=== PATIENT | female | born 1960 | race Caucasian/White ===

== ENCOUNTER → 2016-04-22 | Outpatient (CLI) | payer MEDICARE ==
[~2016-04-22] VITALS: Ht 160 cm; Wt 73.9 kg
[~2016-04-22] MED LIST: ABIL2TAB2 PO; ADDE20CA PO; AMBI10TA PO; AMOX500T PO; BACT800T5 PO; BIOT10005 PO; BUPR1TAB52 PO; CALC600T7 AD; CALCIUM AND VIT D PO; CALCTAB97 PO; CENTTAB36 PO; COLA50CA3 PO; FERR324T12 PO; KLON1TAB PO; NS 1,000 ML IV SCH; OMEP10CASR PO; PERCOCET PO; PROPOFOL 200 MG/20 ML VIAL As Ordered ONE; REST0.05 OU; SENO8.6T9 PO; TYLE650T30 PO; VIIB40TA PO; VITA100037 PO; VITA250L PO; XARE20TA PO; [UNRECOGNIZED DRUG - OTHER] AU; [UNRECOGNIZED DRUG - OTHER] PO; [UNRECOGNIZED DRUG - OTHER] PO; [UNRECOGNIZED DRUG - OTHER] PO
--- NOTE | 2016-04-22 11:11 | ROOR ---
Patient Name: Christy Vaz Procedure Date: 04/22/2016 10:55 AM Date of : 1960 Age: 55 Room: [facility] Gender: Female Note Status: Finalized Procedure: Colonoscopy Indications: Screening for colorectal malignant neoplasm Providers: Dave ZACARIAS MD Referring MD: CATRACHITO NUÑEZ Guanaco [facility] CATRACHITO Venegas Requesting Provider: Medicines: Monitored Anesthesia Care Complications: No immediate complications. Procedure: Pre-Anesthesia Assessment: - The heart rate, respiratory rate, oxygen saturations, blood pressure, adequacy of pulmonary ventilation, and response to care were monitored throughout the procedure. The Colonoscope was introduced through the anus and advanced to the cecum, identified by appendiceal orifice and ileocecal valve. The colonoscopy was performed without difficulty. The patient tolerated the procedure well. The quality of the bowel preparation was good. Findings: The perianal and digital rectal examinations were normal. (Exam: Complete, Prep: Good or Excellent.) A 4 mm polyp was found in the sigmoid colon. The polyp was sessile. The polyp was removed with a cold snare. Resection and retrieval were complete. Internal hemorrhoids were found during retroflexion. The hemorrhoids were small. The exam was otherwise without abnormality on direct and retroflexion views. Impression: - One 4 mm polyp in the sigmoid colon, removed with a cold snare. Resected and retrieved. - Internal hemorrhoids. - The examination was otherwise normal on direct and retroflexion views. Recommendation: - Telephone endoscopist for pathology results in 2 weeks. - If the pathology report reveals adenomatous tissue, then repeat the colonoscopy for surveillance in 5 years. - If the pathology report indicates hyperplastic polyp, then repeat colonoscopy for screening purposes in 10 years. - Resume Xarelto (rivaroxaban) at prior dose today. Dave Zacarias MD Dave ZACARISA MD 04/22/2016 11:10:40 AM This report has been signed electronically. Number of Addenda: 0 Note Initiated On: 04/22/2016 10:55 AM Estimated Blood Loss: Estimated blood loss: none.
[2016-04-22 11:30] VITALS: BP 110/77
== END | disposition home or self-care (01) ==
LOC: M OPP 09:38
PROVIDERS: ATTEND Internal Medicine Gastroenterology
DX: Z12.11 Encounter for screening for malignant neoplasm of colon (principal); D12.5 Benign neoplasm of sigmoid colon; K64.8 Other hemorrhoids; I99.9 Unspecified disorder of circulatory system; M19.90 Unspecified osteoarthritis, unspecified site; F41.9 Anxiety disorder, unspecified; F31.9 Bipolar disorder, unspecified; Z98.0 Intestinal bypass and anastomosis status; Z79.899 Other long term (current) drug therapy; Z79.01 Long term (current) use of anticoagulants

== ENCOUNTER → 2016-05-02 | Outpatient (CLI) | payer MEDICARE ==
[~2016-05-02] MED LIST changes: -NS 1,000 ML IV SCH; -PROPOFOL 200 MG/20 ML VIAL As Ordered ONE
[2016-05-02 13:44] LABS: ALKALINE PHOSPHATASE 113 U/L (45-117); ALT/SGPT 23 U/L (12-78); ANION GAP 9 MEQ/L (8-16); AST/SGOT 19 U/L (15-37); BILIRUBIN,TOTAL 0.3 MG/DL (0.2-1.0); BLOOD UREA NITROGEN 20 MG/DL (7-18); CALCIUM LEVEL 9.1 MG/DL (8.5-10.1); CARBON DIOXIDE LEVEL 28 MEQ/L (21-32); CHLORIDE LEVEL 105 MEQ/L (98-107); CREATININE FOR GFR 0.79 MG/DL (0.55-1.02); GLOMERULAR FILTRATION RATE > 60.0 (>51); GLUCOSE, FASTING 88 MG/DL (70-105); PHOSPHORUS LEVEL 3.9 MG/DL (2.5-4.9); POTASSIUM SERUM 4.8 MEQ/L (3.5-5.1); SODIUM LEVEL 142 MEQ/L (136-145)
[2016-05-02 13:45] LABS: ALBUMIN 3.4 GM/DL (3.2-5.2); FERRITIN 86 NG/ML (8-252); MAGNESIUM LEVEL 2.2 MG/DL (1.8-2.4); TOTAL PROTEIN 6.8 GM/DL (6.4-8.2)
[2016-05-02 13:52] LABS: BASO % 0.6 % (0.0-1.0); EOS # 0.2 K/mm3 (0.0-0.50); EOS % 3.2 % (0.0-3.0); LARGE UNSTAINED CELL # 0.1 K/mm3 (0.0-0.4); LYMPH # 2.6 K/mm3 (1.5-4.5); LYMPH % 39.2 % (24.0-44.0); MEAN CORPUSCULAR HEMOGLOBIN 30.5 pg (27.0-33.0); MEAN CORPUSCULAR HGB CONC 32.2 g/dl (32.0-36.5); MEAN CORPUSCULAR VOLUME 94.7 fl (80.0-96.0); MONO # 0.3 K/mm3 (0.0-0.8); MONO % 4.7 % (0.0-5.0); NEUTROPHILS # 3.2 K/mm3 (1.8-7.7); NEUTROPHILS % 50.3 % (36.0-66.0); PLATELET COUNT, AUTOMATED 251 k/mm3 (150-450); RED CELL DISTRIBUTION WIDTH 13.6 % (11.5-14.5); WHITE BLOOD COUNT 6.3 K/mm3 (4.0-10.0)
[2016-05-02 14:02] LABS: VITAMIN B12 LEVEL 1285 PG/ML (247-911)
== END ==
LOC: M WUC 11:27
PROVIDERS: ATTEND Surgery
DX: K91.2 Postsurgical malabsorption, not elsewhere classified (principal); E55.9 Vitamin D deficiency, unspecified; Z98.84 Bariatric surgery status

== ENCOUNTER → 2016-10-01 | Outpatient (CLI) | payer MEDICARE ==
[~2016-10-01] MED LIST changes: +ABIL1TAB13 PO; -ABIL2TAB2 PO; -ADDE20CA PO; +ADDE20CA3 PO; -BIOT10005 PO; +BIOT10008 PO; +BRIN1TAB2 PO; +KLON0.5T PO; +ROBA500T PO; -VITA100037 PO; +VITA100067 PO
--- NOTE | 2016-10-01 15:32 | REPMRS ---
Patient History The patient states she has not had a clinical breast exam in over a year. Patient is postmenopausal, has history of skin cancer at age 54, 55 and is nulliparous. Family history of breast cancer in maternal grandmother under age 50. Digital Woman Screen Mammo: October 01, 2016 - Exam #: [id number] Bilateral CC and MLO view(s) were taken. Technologist: Yanet Short, Technologist Prior study comparison: August 01, 2014, left breast digital mammo diagnostic unilateral, performed at [facility]. July 13, 2014, digital woman screen mammo performed at [facility]. FINDINGS: There are scattered fibroglandular densities. There has been no change in the appearance of the mammogram from the prior studies. There is a mild amount of residual fibroglandular tissue which is fairly symmetric. There is no interval development of dominant mass, architectural distortion, or clustered microcalcification suggestive of malignancy. ASSESSMENT: BI-RADS/ACR category 1 mammogram. Negative. Recommendation Routine screening mammogram in 1 year (for women over age 40). This mammogram was interpreted with the aid of an FDA-approved computer-aided dectection system. Electronically Signed By: Quincy Perez MD 10/01/16 [id number]
== END ==
LOC: M WHC 14:21
PROVIDERS: ATTEND Hospitalist
DX: Z12.31 Encounter for screening mammogram for malignant neoplasm of breast (principal); Z78.0 Asymptomatic menopausal state; Z92.89 Personal history of other medical treatment; Z80.3 Family history of malignant neoplasm of breast

== ENCOUNTER 2016-10-06 14:22 | Emergency (ER) | payer MEDICARE, MEDICAID ==
[~2016-10-06] VITALS: Ht 160 cm; Wt 67.3 kg
[~2016-10-06 14:22] MED LIST changes: -BRIN1TAB2 PO; -KLON0.5T PO; -ROBA500T PO
[2016-10-06 14:23] VITALS: BP 133/74
[2016-10-06] MEDS ORDERED: KLON0.5T PO (14:44)
[2016-10-06] MEDS ORDERED: ADDE20CA3 PO (14:44)
[2016-10-06] MEDS ORDERED: BRIN1TAB2 PO (14:44)
[2016-10-06] MEDS ORDERED: ACETAMINOPHEN TAB 650MG DOSE (2X325MG) PO ONE (16:45)
--- NOTE | 2016-10-06 17:06 | REP ---
CT Head without contrast HISTORY: Headache COMPARISON: 02/16/2010 Areas of decreased attenuation are present in the periventricular white matter. This represents small-vessel ischemic disease. There is no intraparenchymal hemorrhage, acute infarct, mass or midline shift. T the ventricular system and cortical sulci are dilated consistent with minimal volume loss. There is no extra cerebral collection. There is no fracture. The visualized sinuses are clear. IMPRESSION: 1. Small vessel ischemic disease. 2. Minimal volume loss. Signed by Loi Quinn MD 10/06/2016 04:57 P
--- NOTE | 2016-10-06 17:59 | REP ---
CT CERVICAL SPINE WITHOUT CONTRAST: HISTORY: Neck pain. COMPARISON: 02/16/2010. A congenital block vertebra is present at the C2-3 level. There is no acute fracture or subluxation. A disc bulge with associate osteophyte formation is present at the C5-6 level. A disc bulge is present at the C6-7 level. There is minimal narrowing of the spinal canal. Uncinate process and or facet hypertrophy are present at the C2-3 through C6-7 levels. These findings produce minimal narrowing of the neural foramina. The C5-6 and C6-7 intervertebral discs are decreased in height consistent with disc degeneration. 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 IMPRESSION: 1. There is no acute fracture or subluxation. 2. There is cervical spondylosis at the C2-3 through C6-7 levels. Signed by Loi Quinn MD 10/07/2016 08:08 A
== END 2016-10-06 17:39 | disposition home or self-care (01) ==
LOC: M ED 14:22
DX: S16.1XXA Strain of muscle, fascia and tendon at neck level, initial encounter (principal); R51 Headache; V49.40XA Driver injured in collision with unspecified motor vehicles in traffic accident, initial encounter; Y92.410 Unspecified street and highway as the place of occurrence of the external cause; Y93.89 Activity, other specified; Y99.9 Unspecified external cause status

== ENCOUNTER 2016-11-14 09:15 | Emergency (ER) | payer MEDICARE, MEDICAID ==
[~2016-11-14] VITALS: Ht 160 cm; Wt 65.0 kg
[~2016-11-14 09:15] MED LIST changes: +BRIN1TAB2 PO; +KLON0.5T PO
[2016-11-14] MEDS ORDERED: NORCO, ANEXSIA 5/325MG TABLET (HYDROcodone/ACETAMINOPHEN) PO ONE (11:00)
[2016-11-14] MEDS ORDERED: ONDANSETRON 4 MG ORAL DISINTEGRATING TAB (S0181) PO ONE (11:00)
--- NOTE | 2016-11-14 11:46 | REP ---
Right lower extremity Duplex Doppler venous ultrasound: Real time compression and duplex Doppler interrogation of the right lower extremity deep venous system is performed. The right common femoral, superficial femoral and popliteal veins are fully compressible with transducer pressure and demonstrate normal spontaneous and phasic flow, without evidence of deep venous thrombosis. Impression: No evidence of deep venous thrombosis of the right lower extremity femoral popliteal venous system. Signed by Quincy Perez MD 11/14/2016 11:38 A
[2016-11-14 12:20] LABS: BASO % 0.3 % (0.0-1.0); EOS # 0.1 10^3/uL (0.0-0.50); EOS % 1.2 % (0.0-3.0); IMMATURE GRANULOCYTE % 0.3 % (0-0); LYMPH # 2.6 10^3/uL (1.5-4.5); LYMPH % 40.3 % (24.0-44.0); MEAN CORPUSCULAR HEMOGLOBIN 30.9 pg (27.0-33.0); MEAN CORPUSCULAR HGB CONC 33.3 g/dl (32.0-36.5); MEAN CORPUSCULAR VOLUME 92.9 fl (80.0-96.0); MONO # 0.3 10^3/uL (0.0-0.8); MONO % 4.3 % (0.0-5.0); NEUTROPHILS # 3.5 10^3/uL (1.8-7.7); NEUTROPHILS % 53.6 % (36.0-66.0); PLATELET COUNT, AUTOMATED 248 10^3/uL (150-450); RED CELL DISTRIBUTION WIDTH 13.5 % (11.5-14.5); WHITE BLOOD COUNT 6.5 10^3/uL (4.0-10.0)
[2016-11-14 12:30] LABS: INR 1.37
[2016-11-14 12:49] LABS: ALBUMIN 3.2 GM/DL (3.2-5.2); ALBUMIN/GLOBULIN RATIO 0.94 (1.00-1.93); ALKALINE PHOSPHATASE 96 U/L (45-117); ALT/SGPT 27 U/L (12-78); ANION GAP 4 MEQ/L (8-16); AST/SGOT 16 U/L (15-37); BILIRUBIN,DIRECT 0.1 MG/DL (0.0-0.2); BILIRUBIN,TOTAL 0.3 MG/DL (0.2-1.0); BLOOD UREA NITROGEN 11 MG/DL (7-18); CALCIUM LEVEL 8.6 MG/DL (8.5-10.1); CARBON DIOXIDE LEVEL 29 MEQ/L (21-32); CHLORIDE LEVEL 107 MEQ/L (98-107); CREATININE FOR GFR 0.64 MG/DL (0.55-1.02); GLOMERULAR FILTRATION RATE > 60.0 (>51); GLUCOSE, FASTING 91 MG/DL (70-105); SODIUM LEVEL 140 MEQ/L (136-145); TOTAL PROTEIN 6.6 GM/DL (6.4-8.2)
[2016-11-14] MEDS ORDERED: ROBA500T PO (13:24)
[2016-11-14 13:45] VITALS: BP 132/78
--- NOTE | 2016-11-14 16:51 | REP ---
HISTORY: Hip pain. AP PELVIS: FINDINGS: The bilateral hip joint spaces are symmetric and relatively well maintained. There is no acute or destructive osseous lesion. A single AP view of the pelvis was performed. The hip joint spaces are symmetric and relatively well maintained. There is no acute fracture or destructive osseous lesion. Signed by Jai Boyer DO 11/14/2016 05:12 P
== END 2016-11-14 13:52 | disposition home or self-care (01) ==
LOC: EDBD 09:15 → M ED 09:15
DX: S76.011A Strain of muscle, fascia and tendon of right hip, initial encounter (principal); Z79.01 Long term (current) use of anticoagulants; Z79.899 Other long term (current) drug therapy; M79.89 Other specified soft tissue disorders; Z86.718 Personal history of other venous thrombosis and embolism; X58.XXXA Exposure to other specified factors, initial encounter; Y92.89 Other specified places as the place of occurrence of the external cause; Y93.89 Activity, other specified; Y99.9 Unspecified external cause status

== ENCOUNTER 2016-12-23 14:05 | Outpatient (RCR) | payer MEDICARE, MEDICAID ==
[~2016-12-23 14:05] MED LIST changes: +ROBA500T PO
== END 2017-01-15 ==
LOC: M PT 14:05
PROVIDERS: ATTEND Neuromusculoskeletal Medicine & OMM
DX: Z51.89 Encounter for other specified aftercare (principal); S76 Injury of muscle, fascia and tendon at hip and thigh level

== ENCOUNTER 2017-02-03 13:38 | Outpatient (RCR) | payer MEDICARE, MEDICAID | END 2017-02-15 | LOC: M PT 13:38 | DX: S76.911D Strain of unspecified muscles, fascia and tendons at thigh level, right thigh, subsequent encounter (principal); T14.8XXD Other injury of unspecified body region, subsequent encounter | CPT/HCPCS: 97110 ==

== ENCOUNTER 2017-02-23 15:27 | Outpatient (RCR) | payer MEDICARE, MEDICAID | END 2017-03-18 | disposition home or self-care (01) | LOC: M PT 15:27 | DX: Z51.89 Encounter for other specified aftercare (principal); S76.911D Strain of unspecified muscles, fascia and tendons at thigh level, right thigh, subsequent encounter; T14.8XXD Other injury of unspecified body region, subsequent encounter | CPT/HCPCS: 97110 ==

== ENCOUNTER 2017-04-28 20:00 | Emergency (ER) | payer MEDICARE, MEDICAID ==
[2017-04-28] MEDS: ACETAMINOPHEN 325 MG TAB PO (20:45)
[2017-04-28] MEDS: methylPREDNISolone INJ 125 MG/2 ML VIAL (J2930) IM (21:00)
== END 2017-04-28 22:09 | disposition home or self-care (01) ==
LOC: M ED 20:00
DX: J40 Bronchitis, not specified as acute or chronic (principal); F31.9 Bipolar disorder, unspecified; Z86.718 Personal history of other venous thrombosis and embolism; Z79.899 Other long term (current) drug therapy; Z79.01 Long term (current) use of anticoagulants
CPT/HCPCS: J2930

== ENCOUNTER → 2017-05-05 | Outpatient (CLI) | payer MEDICARE, MEDICAID ==
[2017-05-05 11:21] LABS: BASO % 0.2 % (0.0-1.0); EOS # 0.1 10^3/uL (0.0-0.50); EOS % 1.4 % (0.0-3.0); HEMATOCRIT 41.7 % (36.0-47.0); IMMATURE GRANULOCYTE % 0.4 % (0-3.0); LYMPH # 3.1 10^3/uL (1.5-4.5); LYMPH % 60.7 % (24.0-44.0); MEAN CORPUSCULAR HEMOGLOBIN 30.6 pg (27.0-33.0); MEAN CORPUSCULAR HGB CONC 33.6 g/dl (32.0-36.5); MEAN CORPUSCULAR VOLUME 91.2 fl (80.0-96.0); MONO # 0.3 10^3/uL (0.0-0.8); MONO % 6.7 % (0.0-5.0); NEUTROPHILS # 1.6 10^3/uL (1.8-7.7); NEUTROPHILS % 30.6 % (36.0-66.0); PLATELET COUNT, AUTOMATED 274 10^3/uL (150-450); RED BLOOD COUNT 4.57 10^6/uL (4.00-5.40); RED CELL DISTRIBUTION WIDTH 12.4 % (11.5-14.5); WHITE BLOOD COUNT 5.1 10^3/uL (4.0-10.0)
[2017-05-05 11:51] LABS: ESTIMATED AVERAGE GLUCOSE 103 MG/DL (60-110); HEMOGLOBIN A1c 5.2 %
[2017-05-05 11:59] LABS: TOTAL 25(OH) VITAMIN D 45.9 NG/ML (30.0-100.0)
[2017-05-05 12:00] LABS: VITAMIN B12 LEVEL > 2000 PG/ML (247-911)
[2017-05-05 12:02] LABS: ALBUMIN 3.2 GM/DL (3.2-5.2); ALBUMIN/GLOBULIN RATIO 0.91 (1.00-1.93); ALKALINE PHOSPHATASE 90 U/L (45-117); ALT/SGPT 27 U/L (12-78); ANION GAP 6 MEQ/L (8-16); AST/SGOT 17 U/L (7-37); BILIRUBIN,TOTAL 0.4 MG/DL (0.2-1.0); BLOOD UREA NITROGEN 14 MG/DL (7-18); CALCIUM LEVEL 8.4 MG/DL (8.5-10.1); CARBON DIOXIDE LEVEL 28 MEQ/L (21-32); CHLORIDE LEVEL 105 MEQ/L (98-107); FERRITIN 211 NG/ML (8-252); GLOMERULAR FILTRATION RATE > 60.0 (>51); GLUCOSE, FASTING 108 MG/DL (70-100); IRON (FE) 126 UG/DL (50-170); MAGNESIUM LEVEL 2.6 MG/DL (1.8-2.4); PHOSPHORUS LEVEL 2.9 MG/DL (2.5-4.9); SODIUM LEVEL 139 MEQ/L (136-145); TOTAL IRON BINDING CAPACITY 307 UG/DL (250-450); TOTAL PROTEIN 6.7 GM/DL (6.4-8.2)
[2017-05-05 14:25] LABS: PRETREATED FOLATE FOR RBCFOL 14.8 NG/ML; RBC FOLATE 14.8 NG/ML (280-791)
[2017-05-07 22:00] LABS: HEMATOCRIT 41.7 % (36.0-47.0)
== END ==
LOC: M LAB 10:51
DX: K91.2 Postsurgical malabsorption, not elsewhere classified (principal); J10.1 Influenza due to other identified influenza virus with other respiratory manifestations; Z98.84 Bariatric surgery status; E55.9 Vitamin D deficiency, unspecified
CPT/HCPCS: 83550

== ENCOUNTER → 2017-05-05 | Outpatient (CLI) | payer MEDICARE, MEDICAID ==
[2017-05-05 11:21] LABS: BASO % 0.2 % (0.0-1.0); EOS # 0.1 10^3/uL (0.0-0.50); EOS % 1.6 % (0.0-3.0); HEMATOCRIT 40.8 % (36.0-47.0); HEMOGLOBIN 13.7 g/dl (12.0-16.0); IMMATURE GRANULOCYTE % 0.2 % (0-3.0); LYMPH # 3.1 10^3/uL (1.5-4.5); LYMPH % 61.9 % (24.0-44.0); MEAN CORPUSCULAR HEMOGLOBIN 30.9 pg (27.0-33.0); MEAN CORPUSCULAR HGB CONC 33.6 g/dl (32.0-36.5); MEAN CORPUSCULAR VOLUME 92.1 fl (80.0-96.0); MONO # 0.3 10^3/uL (0.0-0.8); MONO % 6.3 % (0.0-5.0); NEUTROPHILS # 1.5 10^3/uL (1.8-7.7); NEUTROPHILS % 29.8 % (36.0-66.0); PLATELET COUNT, AUTOMATED 257 10^3/uL (150-450); RED BLOOD COUNT 4.43 10^6/uL (4.00-5.40); RED CELL DISTRIBUTION WIDTH 12.5 % (11.5-14.5); WHITE BLOOD COUNT 5.1 10^3/uL (4.0-10.0)
== END ==
LOC: M LAB 10:44
DX: J10.1 Influenza due to other identified influenza virus with other respiratory manifestations (principal)

== ENCOUNTER → 2017-05-08 | Outpatient (CLI) | payer MEDICARE, MEDICAID ==
[~2017-05-08] MED LIST changes: -ABIL1TAB13 PO; -ADDE20CA3 PO; -AMBI10TA PO; -AMOX500T PO; -BACT800T5 PO; -BIOT10008 PO; -BRIN1TAB2 PO; -BUPR1TAB52 PO; -CALC600T7 AD; -CALCIUM AND VIT D PO; -CALCTAB97 PO; -CENTTAB36 PO; -COLA50CA3 PO; -FERR324T12 PO; +ISOVUE-370 76% 100ML VIAL (Q9967) As Ordered; -KLON0.5T PO; -KLON1TAB PO; -OMEP10CASR PO; -PERCOCET PO; -REST0.05 OU; -ROBA500T PO; -SENO8.6T9 PO; -TYLE650T30 PO; -VIIB40TA PO; -VITA100067 PO; -VITA250L PO; -XARE20TA PO; -[UNRECOGNIZED DRUG - OTHER] AU; -[UNRECOGNIZED DRUG - OTHER] PO; -[UNRECOGNIZED DRUG - OTHER] PO; -[UNRECOGNIZED DRUG - OTHER] PO
== END ==
LOC: M RAD 08:19
DX: R93.8 Abnormal findings on diagnostic imaging of other specified body structures (principal); M25.78 Osteophyte, vertebrae (principal); M79.1 Myalgia
CPT/HCPCS: Q9967

== ENCOUNTER → 2017-09-25 | Outpatient (CLI) | payer MEDICARE, MEDICAID | LOC: M WHC 14:41 | DX: Z12.31 Encounter for screening mammogram for malignant neoplasm of breast (principal); R92.8 Other abnormal and inconclusive findings on diagnostic imaging of breast | CPT/HCPCS: 77067 ==

== ENCOUNTER → 2017-10-06 | Outpatient (CLI) | payer MEDICARE, MEDICAID | LOC: M RAD 11:44 | DX: N60.01 Solitary cyst of right breast (principal) | CPT/HCPCS: 77065 ==

== ENCOUNTER 2017-10-10 13:38 | Emergency (ER) | payer MEDICARE, MEDICAID | END 2017-10-10 15:26 | disposition home or self-care (01) | LOC: M ED 13:38 | DX: S06.0X0A Concussion without loss of consciousness, initial encounter (principal); W01.0XXA Fall on same level from slipping, tripping and stumbling without subsequent striking against object, initial encounter; Y92.096 Garden or yard of other non-institutional residence as the place of occurrence of the external cause; I67.82 Cerebral ischemia; M47.812 Spondylosis without myelopathy or radiculopathy, cervical region; F41.9 Anxiety disorder, unspecified; F31.9 Bipolar disorder, unspecified; Z86.718 Personal history of other venous thrombosis and embolism; Z79.01 Long term (current) use of anticoagulants | CPT/HCPCS: 70450 ==

== ENCOUNTER → 2017-10-15 | Outpatient (CLI) | payer MEDICARE, MEDICAID ==
[2017-10-15 16:26] LABS: BASO % 0.4 % (0.0-1.0); EOS # 0.1 10^3/uL (0.0-0.50); EOS % 1.2 % (0.0-3.0); HEMATOCRIT 38.7 % (36.0-47.0); HEMOGLOBIN 12.8 g/dl (12.0-15.5); IMMATURE GRANULOCYTE % 0.2 % (0-3.0); LYMPH # 2.8 10^3/uL (1.5-4.5); LYMPH % 31.4 % (24.0-44.0); MEAN CORPUSCULAR HGB CONC 33.1 g/dl (32.0-36.5); MEAN CORPUSCULAR VOLUME 93.7 fl (80.0-96.0); MONO # 0.7 10^3/uL (0.0-0.8); NEUTROPHILS # 5.3 10^3/uL (1.8-7.7); NEUTROPHILS % 58.8 % (36.0-66.0); PLATELET COUNT, AUTOMATED 273 10^3/uL (150-450); RED BLOOD COUNT 4.13 10^6/uL (4.00-5.40); RED CELL DISTRIBUTION WIDTH 13.5 % (11.5-14.5)
[2017-10-15 16:53] LABS: HEMATOCRIT 38.7 % (36.0-47.0)
[2017-10-15 16:58] LABS: ALBUMIN 3.6 GM/DL (3.2-5.2); ALBUMIN/GLOBULIN RATIO 1.06 (1.00-1.93); ALKALINE PHOSPHATASE 103 U/L (45-117); ALT/SGPT 24 U/L (12-78); ANION GAP 7 MEQ/L (8-16); AST/SGOT 26 U/L (7-37); BILIRUBIN,TOTAL 0.5 MG/DL (0.2-1.0); BLOOD UREA NITROGEN 18 MG/DL (7-18); CALCIUM LEVEL 8.8 MG/DL (8.5-10.1); CARBON DIOXIDE LEVEL 29 MEQ/L (21-32); CHLORIDE LEVEL 103 MEQ/L (98-107); CREATININE FOR GFR 0.78 MG/DL (0.55-1.30); FERRITIN 101 NG/ML (8-252); GLOMERULAR FILTRATION RATE > 60.0 (>51); GLUCOSE, FASTING 85 MG/DL (70-100); IRON (FE) 119 UG/DL (50-170); PERCENT SATURATION 31.6 % (13.2-45.0); POTASSIUM SERUM 4.7 MEQ/L (3.5-5.1); SODIUM LEVEL 139 MEQ/L (136-145); TOTAL IRON BINDING CAPACITY 376 UG/DL (250-450)
[2017-10-15 21:06] LABS: TOTAL 25(OH) VITAMIN D 54.3 NG/ML (30.0-100.0); VITAMIN B12 LEVEL > 2000 PG/ML (247-911)
[2017-10-16 12:33] LABS: PRETREATED FOLATE FOR RBCFOL 17.4 NG/ML; RBC FOLATE 944.2 NG/ML (280-791)
[2017-10-17 08:28] LABS: TRANSFERRIN 294 mg/dL (200-370)
== END ==
LOC: M WUC 12:43
DX: Z98.84 Bariatric surgery status (principal)
CPT/HCPCS: 82607

== ENCOUNTER → 2017-10-23 | Outpatient (CLI) | payer MEDICARE, MEDICAID | LOC: M RAD 09:41 | DX: I70.8 Atherosclerosis of other arteries (principal); R29.810 Facial weakness | CPT/HCPCS: 70450 ==

== ENCOUNTER 2018-03-25 13:33 | Emergency (ER) | payer MEDICARE, MEDICAID ==
[~2018-03-25] VITALS: Ht 160 cm; Wt 66.4 kg
[~2018-03-25 13:33] MED LIST changes: +ABIL1TAB13 PO; +ADDE20CA3 PO; +AMBI10TA PO; +AMOX500T PO; +BACT800T5 PO; +BIOT10008 PO; +BRIN10TA4 PO; +BUPR1TAB52 PO; +CALC600T7 AD; +CALCIUM AND VIT D PO; +CALCTAB97 PO; +CENTTAB36 PO; +COLA50CA3 PO; +FERR324T12 PO; -ISOVUE-370 76% 100ML VIAL (Q9967) As Ordered; +KLON0.5T PO; +KLON1TAB PO; +OMEP10CASR PO; +PERCOCET PO; +PRED20TA PO; +REST0.05 OU; +ROBA500T PO; +SENO8.6T9 PO; +TYLE650T30 PO; +VIIB40TA PO; +VITA100067 PO; +VITA250L PO; +XARE20TA PO; +[UNRECOGNIZED DRUG - OTHER] AU; +[UNRECOGNIZED DRUG - OTHER] PO; +[UNRECOGNIZED DRUG - OTHER] PO; +[UNRECOGNIZED DRUG - OTHER] PO
[2018-03-25] MEDS ORDERED: FLUO20CA19 (13:39)
[2018-03-25] MEDS ORDERED: ARIP1TAB6 (13:39)
[2018-03-25] MEDS ORDERED: QUET1TAB8 (13:39)
[2018-03-25] MEDS ORDERED: CLON1TAB8 (13:39)
[2018-03-25] MEDS ORDERED: ACETAMINOPHEN 325 MG TAB PO ONE (14:45)
--- NOTE | 2018-03-25 14:59 | REP ---
Duplex extremity venous ultrasound: Right lower extremity. History: History of DVT. Pain. Edmonds filter. A Findings: The deep veins are anechoic and fully compressible from the groin to the popliteal fossa in the right lower extremity. Color flow imaging is homogeneous. Spectral Doppler interrogation demonstrates intact respiratory variation in flow and normal manual augmentation of flow. There is no evidence of deep vein thrombosis. Impression: Negative right lower extremity duplex venous ultrasound. No evidence of deep vein thrombosis. Electronically Signed by Jefferson Velez MD 03/25/2018 02:50 P
[2018-03-25] MEDS ORDERED: TRAM50TA2 PO (15:33)
[2018-03-25 15:38] VITALS: BP 143/72
== END 2018-03-25 15:39 | disposition home or self-care (01) ==
LOC: M ED 13:33
DX: M79.661 Pain in right lower leg (principal); R51 Headache; Z86.718 Personal history of other venous thrombosis and embolism; Z79.899 Other long term (current) drug therapy

== ENCOUNTER → 2018-04-16 | Outpatient (CLI) | payer MEDICARE, MEDICAID ==
[~2018-04-16] MED LIST changes: +ARIP1TAB6; +CLON1TAB8; +FLUO20CA19; +QUET1TAB8; +TRAM50TA2 PO
--- NOTE | 2018-04-16 12:03 | REP ---
Clinical: Pain with mild trauma. Technique: AP, lateral, bilateral oblique and sunrise views of the right knee. Findings: Osseous structures, joint spaces, and surrounding soft tissues are normal for age. No acute fracture or dislocation. No effusion. No overt osteoarthritic degenerative changes. Impression: Age-appropriate right knee radiographs. No acute injury appreciated. Electronically Signed by Kana Mistry MD 04/16/2018 11:54 A
== END ==
LOC: M WUC 11:10
PROVIDERS: ATTEND Physician Assistant
DX: M25.561 Pain in right knee (principal)

== ENCOUNTER → 2018-08-27 | Outpatient (REF) | payer MEDICARE, MEDICAID ==
[~2018-08-27] MED LIST changes: +OXYC1TAB23 PO; -PERCOCET PO
[2018-08-27 17:22] LABS: BASO % 0.4 % (0.0-1.0); EOS # 0.1 10^3/uL (0.0-0.50); EOS % 0.9 % (0.0-3.0); HEMATOCRIT 39.1 % (36.0-47.0); HEMOGLOBIN 12.7 g/dl (12.0-15.5); LYMPH # 3.4 10^3/uL (1.5-4.5); LYMPH % 50.4 % (24.0-44.0); MEAN CORPUSCULAR HEMOGLOBIN 30.8 pg (27.0-33.0); MEAN CORPUSCULAR HGB CONC 32.5 g/dl (32.0-36.5); MEAN CORPUSCULAR VOLUME 94.9 fl (80.0-96.0); MONO # 0.5 10^3/uL (0.0-0.8); NEUTROPHILS # 2.7 10^3/uL (1.8-7.7); PLATELET COUNT, AUTOMATED 278 10^3/uL (150-450); RED BLOOD COUNT 4.12 10^6/uL (4.00-5.40); WHITE BLOOD COUNT 6.7 10^3/uL (4.0-10.0)
[2018-08-27 17:29] LABS: ALBUMIN 3.5 GM/DL (3.2-5.2); ALT/SGPT 21 U/L (12-78); BILIRUBIN,TOTAL 0.5 MG/DL (0.2-1.0); BLOOD UREA NITROGEN 17 MG/DL (7-18); CALCIUM LEVEL 8.9 MG/DL (8.5-10.1); CARBON DIOXIDE LEVEL 30 MEQ/L (21-32); CHLORIDE LEVEL 106 MEQ/L (98-107); CREATININE FOR GFR 0.73 MG/DL (0.55-1.30); GLOMERULAR FILTRATION RATE > 60.0 (>51); GLUCOSE, FASTING 93 MG/DL (70-100); POTASSIUM SERUM 4.2 MEQ/L (3.5-5.1); SODIUM LEVEL 139 MEQ/L (136-145); TOTAL PROTEIN 6.7 GM/DL (6.4-8.2)
== END ==
LOC: M SFHCPLAZ 14:52
DX: Z98.84 Bariatric surgery status (principal); L29.9 Pruritus, unspecified
CPT/HCPCS: 36415; 80053; 85025; G0463

== ENCOUNTER → 2018-09-10 | Outpatient (CLI) | payer MEDICARE, MEDICAID ==
--- NOTE | 2018-09-10 16:02 | REP ---
Left ankle four views: There is soft tissue edema laterally. There is no fracture or dislocation. Mineralization is normal. The mortise is symmetric. There is a calcaneal plantar spur. Impression: Soft tissue edema laterally. No fracture. Electronically Signed by Quincy Lund MD 09/10/2018 03:53 P
--- NOTE | 2018-09-10 16:03 | REP ---
Left foot four views: There is no fracture or dislocation. There is internal fixation of the great toe metatarsal and fifth digit metatarsal. Mineralization and joint spaces are otherwise unremarkable. There is a calcaneal plantar spur. Impression: No fracture or dislocation. Electronically Signed by Quincy Lund MD 09/10/2018 03:55 P
== END ==
LOC: M WUC 14:43
PROVIDERS: ATTEND Nurse Practitioner Family
DX: M25.572 Pain in left ankle and joints of left foot (principal)

== ENCOUNTER → 2018-11-03 | Outpatient (CLI) | payer MEDICARE, MEDICAID ==
--- NOTE | 2018-11-03 12:43 | REPMRS ---
Patient History The patient states she has not had a clinical breast exam in over a year. Family history of breast cancer under age 50 in maternal grandmother. 3D TOMOSYNTHESIS WAS PERFORMED. The Veda Longo lifetime risk for breast cancer is 15.0%. Digital Woman Screen Mammo: November 03, 2018 - Exam #: [id number] Bilateral CC and MLO view(s) were taken. Technologist: Yanet Short, Technologist Prior study comparison: October 06, 2017, right breast digital mammo diagnostic unilateral, performed at [facility]. September 25, 2017, bilateral digital woman screen mammo performed at [facility]. FINDINGS: The breast tissue is heterogeneously dense. This may lower the sensitivity of mammography. There has been no change in the appearance of the mammogram from the prior studies. There is a moderate amount of residual fibroglandular tissue which is fairly symmetric. There is no interval development of dominant mass, areas of architectural distortion, or clustered microcalcification typical of malignancy. Assessment: BI-RADS/ACR category 1 mammogram. Negative Mammogram. Recommendation Routine screening mammogram in 1 year (for women over age 40). This mammogram was interpreted with the aid of an FDA-approved computer-aided dectection system. Electronically Signed By: Quincy Perez MD 11/03/18 [id number]
== END ==
LOC: M WHC 08:54
PROVIDERS: ATTEND Hospitalist
DX: Z12.31 Encounter for screening mammogram for malignant neoplasm of breast (principal)

== ENCOUNTER → 2018-12-01 | Outpatient (REF) | payer MEDICARE | LOC: M SFHCPLAZ 17:14 | PROVIDERS: ATTEND Dermatology | DX: D23.4 Other benign neoplasm of skin of scalp and neck (principal) | CPT/HCPCS: 11106; 88304; G0463 ==

== ENCOUNTER → 2019-08-09 | Outpatient (REF) | payer MEDICARE, MEDICAID ==
[~2019-08-09] MED LIST changes: -FLUO20CA19; +FLUO20CA22; +QUET100T2; -QUET1TAB8
== END ==
LOC: M LAB REF 17:21
PROVIDERS: ATTEND Dermatology
DX: L57.0 Actinic keratosis (principal)
CPT/HCPCS: 11102; 11103; 17000; 88305; G0463

== ENCOUNTER 2019-09-25 11:55 | Emergency (ER) | payer OTHER, MEDICARE, MEDICAID ==
--- NOTE | 2019-10-28 17:01 | ECGEPIP ---
[facility] - ED Test Date: 2019-09-25 Pat Name: HANNAH SHAFER Department: Room: - Gender: Female Rehabilitation Therapy Aide: JOEL : 1960 Requested By: DIVYA THOMAS Order Number: [id number] Reading MD: Dennise Blackwell Measurements Intervals [place] Rate: 58 P: 10 NH: 140 QRS: 21 QRSD: 86 T: 31 QT: 380 QTc: 375 Interpretive Statements SINUS BRADYCARDIA BORDERLINE ECG SEE SCANNED DOWNTIME REPORT
[2019-11-10 08:56] LABS: INR 1.54; PARTIAL THROMBOPLASTIN TIME 30.9 SECONDS (24.2-38.5); PROTHROMBIN TIME 18.8 SECONDS (12.5-14.3)
[2019-11-10 18:37] LABS: BASO % 0.3 % (0.0-1.0); EOS % 0.4 % (0.0-3.0); HEMATOCRIT 50.3 % (36.0-47.0); HEMOGLOBIN 16.6 g/dl (12.0-15.5); LYMPH # 2.3 10^3/uL (1.5-5.0); LYMPH % 31.8 % (24.0-44.0); MEAN CORPUSCULAR HEMOGLOBIN 31.3 pg (27.0-33.0); MEAN CORPUSCULAR VOLUME 94.9 fl (80.0-96.0); MONO # 0.5 10^3/uL (0.0-0.8); MONO % 6.9 % (0.0-5.0); NEUTROPHILS # 4.3 10^3/uL (1.5-8.5); NEUTROPHILS % 60.3 % (36.0-66.0); PLATELET COUNT, AUTOMATED 286 10^3/uL (150-450); WHITE BLOOD COUNT 7.1 10^3/uL (4.0-10.0)
[2019-12-11 03:08] LABS: ALBUMIN 4.1 GM/DL (3.2-5.2); ALT/SGPT 31 U/L (12-78); BILIRUBIN,DIRECT 0.3 MG/DL (0.0-0.2); BILIRUBIN,TOTAL 0.5 MG/DL (0.2-1.0); BLOOD UREA NITROGEN 17 MG/DL (7-18); CALCIUM LEVEL 9.7 MG/DL (8.8-10.2); CARBON DIOXIDE LEVEL 30 MEQ/L (21-32); CHLORIDE LEVEL 103 MEQ/L (98-107); CK-MB VALUE MASS 4.2 NG/ML (<3.6); CPK CREATINE PHOSPHOKINASE 124 U/L (26-192); CREATININE FOR GFR 0.92 MG/DL (0.55-1.30); GLOMERULAR FILTRATION RATE > 60.0 (>45); GLUCOSE, FASTING 84 MG/DL (70-100); MAGNESIUM LEVEL 2.3 MG/DL (1.8-2.4); MB/CK RELATIVE INDEX 3.39 (< OR =4); POTASSIUM SERUM 4.2 MEQ/L (3.5-5.1); SODIUM LEVEL 138 MEQ/L (136-145); TOTAL PROTEIN 8.1 GM/DL (6.4-8.2); TROPONIN I < 0.02 NG/ML (< 0.10)
== END 2019-09-25 13:50 | disposition home or self-care (01) ==
LOC: M ED 11:55
DX: B34.9 Viral infection, unspecified (principal); M25.511 Pain in right shoulder; G89.29 Other chronic pain; F90.9 Attention-deficit hyperactivity disorder, unspecified type; F31.9 Bipolar disorder, unspecified; Z86.718 Personal history of other venous thrombosis and embolism; Z98.84 Bariatric surgery status; Z79.899 Other long term (current) drug therapy; Z79.01 Long term (current) use of anticoagulants

== ENCOUNTER → 2019-11-01 | Outpatient (CLI) | payer OTHER ==
[2019-11-01 17:53] LABS: HEMATOCRIT 40.6 % (36.0-47.0); HEMOGLOBIN 13.3 g/dl (12.0-15.5); MEAN CORPUSCULAR HGB CONC 32.8 g/dl (32.0-36.5); MEAN CORPUSCULAR VOLUME 97.6 fl (80.0-96.0); PLATELET COUNT, AUTOMATED 253 10^3/uL (150-450); RED BLOOD COUNT 4.16 10^6/uL (4.00-5.40); WHITE BLOOD COUNT 11.4 10^3/uL (4.0-10.0)
[2019-11-01 18:13] LABS: ALBUMIN 3.5 GM/DL (3.2-5.2); ALT/SGPT 61 U/L (12-78); BILIRUBIN,TOTAL 0.4 MG/DL (0.2-1.0); BLOOD UREA NITROGEN 19 MG/DL (7-18); CALCIUM LEVEL 9.1 MG/DL (8.8-10.2); CARBON DIOXIDE LEVEL 30 MEQ/L (21-32); CHLORIDE LEVEL 104 MEQ/L (98-107); CREATININE FOR GFR 0.79 MG/DL (0.55-1.30); GLOMERULAR FILTRATION RATE > 60.0 (>45); GLUCOSE, FASTING 95 MG/DL (70-100); POTASSIUM SERUM 4.7 MEQ/L (3.5-5.1); SODIUM LEVEL 137 MEQ/L (136-145); TOTAL PROTEIN 7.1 GM/DL (6.4-8.2)
== END ==
LOC: M PLALAB 14:44
PROVIDERS: ATTEND Family Medicine
DX: Z01.818 Encounter for other preprocedural examination (principal)

== ENCOUNTER → 2019-11-03 | Outpatient (CLI) | payer OTHER, MEDICARE, MEDICAID | LOC: M LABSMTC 10:05 | PROVIDERS: ATTEND Orthopaedic Surgery | DX: Z20.828 Contact with and (suspected) exposure to other viral communicable diseases (principal) ==

== ENCOUNTER → 2020-01-20 | Outpatient (REF) | payer MEDICARE, MEDICAID | LOC: M PLALAB 08:12 | PROVIDERS: ATTEND Nurse Practitioner Women's Health | DX: Z12.4 Encounter for screening for malignant neoplasm of cervix (principal); N95.8 Other specified menopausal and perimenopausal disorders; R87.810 Cervical high risk human papillomavirus (HPV) DNA test positive | CPT/HCPCS: 87624; G0123 ==

== ENCOUNTER → 2020-01-20 | Outpatient (CLI) | payer MEDICARE, MEDICAID ==
--- NOTE | 2020-01-20 13:07 | REPMRS ---
Patient History The patient states she had a clinical breast exam in 01/2020. Patient is postmenopausal, has history of skin cancer at age 54, and is nulliparous. Family history of breast cancer under age 50 in maternal grandmother. No Hormone Replacement Therapy Digital Woman Screen Mammo: January 20, 2020 - Exam #: [id number] Bilateral CC and MLO view(s) were taken. Technologist: Shy Pavon, Technologist Prior study comparison: November 03, 2018, bilateral digital woman screen mammo performed at [facility]. September 25, 2017, bilateral digital woman screen mammo performed at [facility]. October 01, 2016, digital woman screen mammo performed at [facility]. FINDINGS: There are scattered fibroglandular densities. The Volpara volumetric breast density category is:B. The previously noted right breast cyst is again seen unchanged. There has been no change in the appearance of the mammogram from the prior studies. There is a mild amount of scattered fibroglandular density which is fairly symmetric. There is no interval development of dominant mass, architectural distortion, or grouped microcalcification suggestive of malignancy. 3-D tomosynthesis shows no additional findings. Assessment: BI-RADS/ACR category 2 mammogram. Benign Findings. Recommendation Routine screening mammogram of both breasts in 1 year (for women over age 40). This patient's [facility] Lifetime Breast Cancer Risk is estimated at 14.6 %. This mammogram was interpreted with the aid of an FDA-approved computer-aided dectection system. Electronically Signed By: Shaheen Velez MD 01/20/20 [id number]
== END ==
LOC: M WHC 11:03
PROVIDERS: ATTEND Nurse Practitioner Women's Health
DX: Z12.31 Encounter for screening mammogram for malignant neoplasm of breast (principal); N60.01 Solitary cyst of right breast; Z85.828 Personal history of other malignant neoplasm of skin

== ENCOUNTER → 2020-01-23 | Outpatient (REF) | payer MEDICARE, MEDICAID | LOC: M SFHCPLAZ 17:03 | PROVIDERS: ATTEND Physician Assistant | DX: B35.1 Tinea unguium (principal) ==

== ENCOUNTER → 2020-01-23 | Outpatient (REF) | payer MEDICARE, MEDICAID | LOC: M LAB REF 19:03 | PROVIDERS: ATTEND Physician Assistant | DX: L72.9 Follicular cyst of the skin and subcutaneous tissue, unspecified (principal) | CPT/HCPCS: 11102; 87101; 88305; G0463 ==

== ENCOUNTER 2020-03-05 13:57 | Emergency (ER) | payer MEDICARE, MEDICAID ==
[~2020-03-05] VITALS: Ht 160 cm; Wt 71.8 kg
[2020-03-05] MEDS ORDERED: VRAY1.5C PO (14:14)
[2020-03-05] MEDS ORDERED: NORCO, ANEXSIA 5/325MG TABLET (HYDROcodone/ACETAMINOPHEN) PO ONE ×2 (14:45→18:00)
--- OUTSIDE RECORDS SUMMARY | 2020-03-05 15:18 | CCD | Continuity of Care Document ---
Author Author Christy WIN MSPT Organization Unknown Address [address] [place] [address], [address] [address] Phone [phone] Care Team Providers Care It Infrastructure Specialist Name Role Phone Cinda Renetta DREW AUTM [phone] Gurdeep Pritchard PA-C AUTM [phone] Problems Active Problems Provider Date Arthralgia of the ankle and/or foot Onse t: 12/07/1998 Adhesive capsulitis of shoulder Becka Veras, Onset: 0 06/06/2011 Social History Type Date Description Comments Sex Unknown ETOH Use Occasionally consumes alcohol Tobacco Use Start: Unknown Denies Smoking Smoking Status Reviewed: 05/06/19 Denies Smoking Allergies, Adverse Reactions, Alerts Description No Known Drug Allergies Medications Active Medications SIG Qnty Indications Ordering Provide r Date Tramadol HCL 50mg Tablets Take 1-2 Tablets By Mouth Every 8 Hours as Needed For Pain MDD 4, Surg Date 11/08/2019 20tabs Max Barba MD 12/21/2019 Hydrocodone-Acetaminophen 5-325mg Tablets 1-2 tabs p.o every 6 hours as needed post surgical pain 30tabs DMaida Barba MD 11/07/2019 Xarelto 20mg Tablets every da y Unknown Abilify 2mg Tablets 1 by mouth every day Unknown Adderall 20mg Tablets Unknown Furosemide 20mg Tablets 1 by mouth every day Unknown Ambien 10mg Tablets i @hs as needed sleep Unknown Vitamin B-12 500mcg Tablets Sub 1 by mouth every day Unknown Calcium Citrate + Tablets Unknown Clonazepam 1mg Tablets 1 tab by mouth at bedtime as needed for anxiety Unknown Biotin 49485bot Tablets 1 by mouth every day Unknown Hydroxyzine HCL 25mg Tablets 1 tab by mouth 1-2 times a day as needed for anxiety Unkn own Centrum Silver Adult 50+ Adult 50 Tablets 1 by mouth every day S83.91xA Unknown Magnesium 500mg Capsules Unknown Folic Acid 800mcg Tablets 1 by mouth every day Unknown Vitamin D3 1000Unit Capsules 1 by mouth every day Unknown Immunizations Description No Information Available Vital Signs Date Vital Result Comment 02/14/2020 1:09pm Body Temperature 96.4 F 05/06/2019 2:53pm Body Temperature 97.5 F Height 63 inches 5'3" Weight 152.00 lb BMI (Body Mass Index) 26.9 kg/m2 Results Test Acquired Date Facility Test Result H/L Range Note Laboratory test finding 11/03/2019 [facility] [address] [place] [address] (315)- - Coronavirus 2019 Nasopharygeal This nucleic aci <SEE NOTE> 1 1 This nucleic acid amplificat ion test was developed and its performance characteristics determined by [facility]. Nucleic acid amplification tests include PCR and TMA. This test has not been FDA cleared or approved. This test has been authorized by FDA under an Emergency Use Authorization (EUA). This test is only authorized for the duration of time the declaration that circumstances exist justifying the authorization of the emergency use of in vitro diagnostic tests for detection of SARS-CoV-2 virus and/or diagnosis of COVID-19 infection under section 564(b)(1) of the Act, 21 U.S.C. 360bbb-3 (b) (1), unless the authorization is terminated or revoked sooner. When diagnostic testing is negative, the possibility of a false negative result should be considered in the context of a patient's recent exposures and the presence of clinical signs and symptoms consistent with COVID-19. An individual without symptoms of COVID-19 and who is not shedding SARS-CoV-2 virus would expect to have a negative (not detected) result in this assay. Performed at: RN - [facility] [address] [id number] Procedure Writer: Val Parmar MD, Phone: [phone] Not Detected Procedures Date Code Description Status 02/24/2020 62158 Electrical Stimulati on Manual, Each 15 Min, Constant Attendance Completed 02/24/2020 01957 Hot Or Cold Packs Completed 02/20/2020 26212 Therapeutic Procedure, Each 15 M inutes Completed 02/20/2020 75141 Therapeutic Procedure, Each 15 M inutes Completed 02/20/2020 61773 Electrical Stimulati on Manual, Each 15 Min, Constant Attendance Completed 02/20/2020 36467 Hot Or Cold Packs Completed 02/06/2020 87945 Therapeutic Procedure, Each 15 M inutes Completed 02/06/2020 75288 Therapeutic Procedure, Each 15 M inutes Completed 02/06/2020 79798 Electrical Stimulati on Manual, Each 15 Min, Constant Attendance Completed 02/06/2020 49895 Hot Or Cold Packs Completed 02/02/2020 45805 Therapeutic Procedure, Each 15 M inutes Completed 02/02/2020 96791 Therapeutic Procedure, Each 15 M inutes Completed 02/02/2020 75204 Electrical Stimulati on Manual, Each 15 Min, Constant Attendance Completed 02/02/2020 91823 Hot Or Cold Packs Completed 01/30/2020 29185 Hot Or Cold Packs Completed 01/30/2020 05256 Electrical Stimulati on Manual, Each 15 Min, Constant Attendance Completed 01/30/2020 63653 Therapeutic Procedure, Each 15 M inutes Completed 01/30/2020 61147 Therapeutic Procedure, Each 15 M inutes Completed 01/30/2020 02761 Therapeutic Procedure, Each 15 M inutes Completed 01/26/2020 04011 Therapeutic Procedure, Each 15 M inutes Completed 01/26/2020 51212 Therapeutic Procedure, Each 15 M inutes Completed 01/26/2020 92115 Electrical Stimulati on Manual, Each 15 Min, Constant Attendance Completed 01/26/2020 96043 Hot Or Cold Packs Completed 01/23/2020 23215 Hot Or Cold Packs Completed 01/23/2020 91945 Electrical Stimulati on Manual, Each 15 Min, Constant Attendance Completed 01/23/2020 94081 Therapeutic Procedure, Each 15 M inutes Completed 01/23/2020 65086 Therapeutic Procedure, Each 15 M inutes Completed 01/02/2020 64881 Manual Therapy Each 15 Minutes C ompleted 01/02/2020 76375 Therapeutic Procedure, Each 15 M inutes Completed 01/02/2020 52682 Electrical Stimulati on Manual, Each 15 Min, Constant Attendance Completed 01/02/2020 89471 Hot Or Cold Packs Completed 12/30/2019 61810 Hot Or Cold Packs Completed 12/30/2019 15837 Electrical Stimulati on Manual, Each 15 Min, Constant Attendance Completed 12/30/2019 85471 Therapeutic Procedure, Each 15 M inutes Completed 12/30/2019 40904 Manual Therapy Each 15 Minutes C ompleted 12/26/2019 84533 Manual Therapy Each 15 Minutes C ompleted 12/26/2019 73805 Therapeutic Procedure, Each 15 M inutes Completed 12/26/2019 34145 Electrical Stimulati on Manual, Each 15 Min, Constant Attendance Completed 12/26/2019 90005 Hot Or Cold Packs Completed 12/23/2019 51784 Hot Or Cold Packs Completed 12/23/2019 16523 Electrical Stimulati on Manual, Each 15 Min, Constant Attendance Completed 12/23/2019 77661 Therapeutic Procedure, Each 15 M inutes Completed 12/23/2019 97495 Manual Therapy Each 15 Minutes C ompleted 12/20/2019 42466 Therapeutic Procedure, Each 15 M inutes Completed 12/20/2019 24909 Electrical Stimulati on Manual, Each 15 Min, Constant Attendance Completed 12/20/2019 02070 Hot Or Cold Packs Completed 12/16/2019 04213 Therapeutic Procedure, Each 15 M inutes Completed 12/16/2019 39564 Electrical Stimulati on Manual, Each 15 Min, Constant Attendance Completed 12/16/2019 70164 Hot Or Cold Packs Completed 12/13/2019 63553 Hot Or Cold Packs Completed 12/13/2019 04442 Electrical Stimulati on Manual, Each 15 Min, Constant Attendance Completed 12/13/2019 70248 Therapeutic Procedure, Each 15 M inutes Completed 12/08/2019 12542 Therapeutic Procedure, Each 15 M inutes Completed 12/08/2019 55346 Therapeutic Procedure, Each 15 M inutes Completed 12/08/2019 77965 Electrical Stimulati on Manual, Each 15 Min, Constant Attendance Completed 12/08/2019 59538 Hot Or Cold Packs Completed 12/06/2019 86399 Hot Or Cold Packs Completed 12/06/2019 72181 Electrical Stimulati on Manual, Each 15 Min, Constant Attendance Completed 12/06/2019 94034 Therapeutic Procedure, Each 15 M inutes Completed 12/06/2019 52655 Therapeutic Procedure, Each 15 M inutes Completed 12/01/2019 00085 Therapeutic Procedure, Each 15 M inutes Completed 12/01/2019 73467 Hot Or Cold Packs Completed 11/29/2019 82516 Therapeutic Procedure, Each 15 M inutes Completed 11/29/2019 44258 Hot Or Cold Packs Completed 11/24/2019 05280 Physical Therapy Eval - Low Comp lexity Completed 11/08/2019 17394 Arthroscopy Shoulder Surgical Wi th Rotator Cuff Repair Completed 11/08/2019 21938 Arthroscopy Shoulder Remove Loose/Foreign Body Dist Claviculectom Completed 09/20/201936440 Inject/Drain Joint/Bursa Major C ompleted Medical Devices Description No Information Available Encounters Type Date Location Provider Dx Diagnosis Office Visit 02/14/2020 11:30a Penny Barba MD S4 6.011D Strain of musc/tend the rotator cuff of right shoulder, subs Office Visit 01/05/2020 1:00p Penny Barba MD S4 6.011D Strain of musc/tend the rotator cuff of right shoulder, subs Office Visit 11/16/2019 10:00a Penny Barba MD S4 6.011D Strain of musc/tend the rotator cuff of right shoulder, subs Office Visit 09/20/2019 11:15a [facility] Mindy Rosas PA-C S46.011 D Strain of musc/tend the rotator cuff of right shoulder, subs Assessments Date Code Description Provider 02/20/2020 S46.011D Strain of muscle(s) and tendon(s) of the rotator cuff of right shoulder, subsequent encounter Isamar Win, MSPT 02/14/2020 S46.011D Strain of muscle(s) and tendon(s) of the rotator cuff of right shoulder, subsequent encounter Max Barba MD 02/06/2020 S46.011D Strain of muscle(s) and tendon(s) of the rotator cuff of right shoulder, subsequent encounter Leeroy Gaytan, PT, DPT 02/02/2020 S46.011D Strain of muscle(s) and tendon(s) of the rotator cuff of right shoulder, subsequent encounter Isamar M. Vespa, [facility] 01/30/2020 S46.011D Strain of muscle(s) and tendon(s) of the rotator cuff of right shoulder, subsequent encounter Isamar M. Vespa, [facility] 01/26/2020 S46.011D Strain of muscle(s) and tendon(s) of the rotator cuff of right shoulder, subsequent encounter Isamar M. Vespa, [facility] 01/23/2020 S46.011D Strain of muscle(s) and tendon(s) of the rotator cuff of right shoulder, subsequent encounter Isamar M. Vespa, [facility] 01/05/2020 S46.011D Strain of muscle(s) and tendon(s) of the rotator cuff of right shoulder, subsequent encounter Max Barba MD 01/02/2020 S46.011D Strain of muscle(s) and tendon(s) of the rotator cuff of right shoulder, subsequent encounter Isamar M. Vespa, [facility] 12/30/2019 S46.011D Strain of muscle(s) and tendon(s) of the rotator cuff of right shoulder, subsequent encounter Isamar M. Vespa, [facility] 12/26/2019 S46.011D Strain of muscle(s) and tendon(s) of the rotator cuff of right shoulder, subsequent encounter Isamar M. Vespa, [facility] 12/23/2019 S46.011D Strain of muscle(s) and tendon(s) of the rotator cuff of right shoulder, subsequent encounter Isamar M. Vespa, [facility] 12/20/2019 S46.011D Strain of muscle(s) and tendon(s) of the rotator cuff of right shoulder, subsequent encounter Isamar M. Vespa, [facility] 12/16/2019 S46.011D Strain of muscle(s) and tendon(s) of the rotator cuff of right shoulder, subsequent encounter Isamar M. Vespa, [facility] 12/13/2019 S46.011D Strain of muscle(s) and tendon(s) of the rotator cuff of right shoulder, subsequent encounter Isamar M. Vespa, [facility] 12/08/2019 S46.011D Strain of muscle(s) and tendon(s) of the rotator cuff of right shoulder, subsequent encounter Isamar Win, MSPT 12/06/2019 S46.011D Strain of muscle(s) and tendon(s) of the rotator cuff of right shoulder, subsequent encounter Isamar CardonaMaida [place], MSPT 12/01/2019 S46.011D Strain of muscle(s) and tendon(s) of the rotator cuff of right shoulder, subsequent encounter Isamar Win, MSPT 11/29/2019 S46.011D Strain of muscle(s) and tendon(s) of the rotator cuff of right shoulder, subsequent encounter Isamar Win, MSPT 11/24/2019 S46.011D Strain of muscle(s) and tendon(s) of the rotator cuff of right shoulder, subsequent encounter Leeroy Gaytan, PT, DPT 11/16/2019 S46.011D Strain of muscle(s) and tendon(s) of the rotator cuff of right shoulder, subsequent encounter Max Barba MD 11/08/2019 S46.011A Strain of muscle(s) and tendon(s) of the rotator cuff of right shoulder, initial encounter Max Barba MD 11/08/2019 M19.011 Primary osteoarthritis, right sh oulder Max Barba MD 11/08/2019 X50.9xxA Other and unspecifie d overexertion or strenuous movements or postures, initial encounter Max Barba MD 11/08/[address] or not applica ble Max Barba MD 10/27/2019 S46.011A Strain of muscle(s) and tendon(s) of the rotator cuff of right shoulder, initial encounter Max Barba MD 09/20/2019 S46.011D Strain of muscle(s) and tendon(s) of the rotator cuff of right shoulder, subsequent encounter Mindy Rosas PA-C Plan of Treatment Future Appointment(s):* 02/29/2020 10:30 am - [place] [facility] at Physical Therapy * 02/27/2020 10:00 am - [place] Conde[facility] at Physical Therapy * 03/16/2020 10:45 am - Max Barba MD at [facility] Functional Status Description No Information Available Mental Status Description No Information Available Referrals Refer to Reason for Referral Status Appt Date Wei Barba MD PT- RT SHOULDER WRITTEN AUTH PASSED TO PT DEPT. Created [address] [place] [address] [phone] Wei Barba MD PT- RT SHOULDER OK TO [facility] 3 MONTHS AFTER SURGERY. PASSED TO PT DEPT. Created [address] [place] [address] [phone]
--- OUTSIDE RECORDS SUMMARY | 2020-03-05 15:18 | CCD | Continuity of Care Document ---
Author Author Christy WIN MSPT Organization Unknown Address [address] [place] [address], [address] [address] Phone [phone] Care Team Providers Care Manager Operations And Procurement Name Role Phone Cinda Renetta DREW AUTM [phone] Gurdeep Pritcahrd PA-C AUTM [phone] Problems Active Problems Provider Date Arthralgia of [...] bedtime as needed for anxiety Unknown Biotin 09946nez Tablets 1 by mouth every day Unknown [...] H/L Range Note Laboratory test finding 11/03/2019 [facility] [address] [place] [address] (315)- - Coronavirus 2019 Nasopharygeal This nucleic aci <SEE NOTE> 1 1 This nucleic acid amplificat ion test was developed and its performance characteristics determined by [facility]. Nucleic acid amplification tests include PCR and [...] this assay. Performed at: RN - [facility] [address] [id number] Plant Operations Manager: Val Parmar MD, Phone: [phone] Not Detected Procedures Date Code Description Status 02/20/2020 81182 Therapeutic Procedure, Each 15 M inutes Completed 02/20/2020 97405 Therapeutic Procedure, Each 15 M inutes Completed 02/20/2020 36962 Electrical Stimulati on Manual, Each 15 Min, Constant Attendance Completed 02/20/2020 11179 Hot Or Cold Packs Completed 02/06/2020 02736 Therapeutic Procedure, Each 15 M inutes Completed 02/06/2020 34469 Therapeutic Procedure, Each 15 M inutes Completed 02/06/2020 75009 Electrical Stimulati on Manual, Each 15 Min, Constant Attendance Completed 02/06/2020 91497 Hot Or Cold Packs Completed 02/02/2020 97816 Hot Or Cold Packs Completed 02/02/2020 83165 Electrical Stimulati on Manual, Each 15 Min, Constant Attendance Completed 02/02/2020 29706 Therapeutic Procedure, Each 15 M inutes Completed 02/02/2020 67390 Therapeutic Procedure, Each 15 M inutes Completed 01/30/2020 67097 Therapeutic Procedure, Each 15 M inutes Completed 01/30/2020 65781 Therapeutic Procedure, Each 15 M inutes Completed 01/30/2020 93433 Therapeutic Procedure, Each 15 M inutes Completed 01/30/2020 41626 Electrical Stimulati on Manual, Each 15 Min, Constant Attendance Completed 01/30/2020 97861 Hot Or Cold Packs Completed 01/26/2020 96579 Hot Or Cold Packs Completed 01/26/2020 48628 Electrical Stimulati on Manual, Each 15 Min, Constant Attendance Completed 01/26/2020 86666 Therapeutic Procedure, Each 15 M inutes Completed 01/26/2020 81805 Therapeutic Procedure, Each 15 M inutes Completed 01/23/2020 99440 Therapeutic Procedure, Each 15 M inutes Completed 01/23/2020 49024 Therapeutic Procedure, Each 15 M inutes Completed 01/23/2020 93589 Electrical Stimulati on Manual, Each 15 Min, Constant Attendance Completed 01/23/2020 70555 Hot Or Cold Packs Completed 01/02/2020 71064 Manual Therapy Each 15 Minutes C ompleted 01/02/2020 81125 Therapeutic Procedure, Each 15 M inutes Completed 01/02/2020 84237 Electrical Stimulati on Manual, Each 15 Min, Constant Attendance Completed 01/02/2020 22664 Hot Or Cold Packs Completed 12/30/2019 90325 Manual Therapy Each 15 Minutes C ompleted 12/30/2019 61374 Therapeutic Procedure, Each 15 M inutes Completed 12/30/2019 55968 Electrical Stimulati on Manual, Each 15 Min, Constant Attendance Completed 12/30/2019 30963 Hot Or Cold Packs Completed 12/26/2019 66913 Hot Or Cold Packs Completed 12/26/2019 40588 Electrical Stimulati on Manual, Each 15 Min, Constant Attendance Completed 12/26/2019 60082 Therapeutic Procedure, Each 15 M inutes Completed 12/26/2019 61241 Manual Therapy Each 15 Minutes C ompleted 12/23/2019 69300 Manual Therapy Each 15 Minutes C ompleted 12/23/2019 25887 Therapeutic Procedure, Each 15 M inutes Completed 12/23/2019 36652 Electrical Stimulati on Manual, Each 15 Min, Constant Attendance Completed 12/23/2019 47195 Hot Or Cold Packs Completed 12/20/2019 81691 Hot Or Cold Packs Completed 12/20/2019 85101 Electrical Stimulati on Manual, Each 15 Min, Constant Attendance Completed 12/20/2019 79916 Therapeutic Procedure, Each 15 M inutes Completed 12/16/2019 69243 Therapeutic Procedure, Each 15 M inutes Completed 12/16/2019 19972 Electrical Stimulati on Manual, Each 15 Min, Constant Attendance Completed 12/16/2019 77323 Hot Or Cold Packs Completed 12/13/2019 41666 Therapeutic Procedure, Each 15 M inutes Completed 12/13/2019 81309 Electrical Stimulati on Manual, Each 15 Min, Constant Attendance Completed 12/13/2019 94241 Hot Or Cold Packs Completed 12/08/2019 52361 Hot Or Cold Packs Completed 12/08/2019 01145 Electrical Stimulati on Manual, Each 15 Min, Constant Attendance Completed 12/08/2019 69006 Therapeutic Procedure, Each 15 M inutes Completed 12/08/2019 36698 Therapeutic Procedure, Each 15 M inutes Completed 12/06/2019 16371 Therapeutic Procedure, Each 15 M inutes Completed 12/06/2019 20918 Therapeutic Procedure, Each 15 M inutes Completed 12/06/2019 08247 Electrical Stimulati on Manual, Each 15 Min, Constant Attendance Completed 12/06/2019 74976 Hot Or Cold Packs Completed 12/01/2019 33357 Therapeutic Procedure, Each 15 M inutes Completed 12/01/2019 35845 Hot Or Cold Packs Completed 11/29/2019 37343 Therapeutic Procedure, Each 15 M inutes Completed 11/29/2019 88235 Hot Or Cold Packs Completed 11/24/2019 44316 Physical Therapy Eval - Low Comp lexity Completed 11/08/2019 05967 Arthroscopy Shoulder Surgical Wi th Rotator Cuff Repair Completed 11/08/2019 02645 Arthroscopy Shoulder Remove Loose/Foreign Body Dist Claviculectom Completed 09/20/201953663 Inject/Drain Joint/Bursa Major C ompleted Medical Devices Description No Information Available Encounters Type Date Location Provider Dx Diagnosis Office Visit 02/14/2020 11:30a Penny Barba MD S4 6.011D Strain of musc/tend the rotator cuff of right shoulder, subs Office Visit 01/05/2020 1:00p Penny Barba MD S4 6.011D Strain of musc/tend the rotator cuff of right shoulder, subs Office Visit 11/16/2019 10:00a Penny Babra MD S4 6.011D Strain of musc/tend the rotator cuff of right shoulder, subs Office Visit 09/20[place] S46.011 D Strain of musc/tend [...] right shoulder, subsequent encounter Isamar Win, MSPT 01/30/2020 S46.011D Strain of muscle(s) and tendon(s) of the rotator cuff of right shoulder, subsequent encounter Isamar M. Vespa, [facility] 01/26/2020 S46.011D Strain of muscle(s) and tendon(s) of the rotator cuff of right shoulder, subsequent encounter Isamar M. Vespa, [facility] 01/23/2020 S46.011D Strain of muscle(s) and tendon(s) of the rotator cuff of right shoulder, subsequent encounter Isamar M. Vespa, [facility] 01/05/2020 S46.011D Strain of muscle(s) and tendon(s) of the rotator cuff of right shoulder, subsequent encounter Max Barba MD 01/02/2020 S46.011D Strain of muscle(s) and tendon(s) of the rotator cuff of right shoulder, subsequent encounter Isamar M. Vespa, [facility] 12/30/2019 S46.011D Strain of muscle(s) and tendon(s) of the rotator cuff of right shoulder, subsequent encounter Isamar M. Vespa, [facility] 12/26/2019 S46.011D Strain of muscle(s) and tendon(s) of the rotator cuff of right shoulder, subsequent encounter Isamar M. Vespa, [facility] 12/23/2019 S46.011D Strain of muscle(s) and tendon(s) of the rotator cuff of right shoulder, subsequent encounter Isamar M. Vespa, [facility] 12/20/2019 S46.011D Strain of muscle(s) and tendon(s) of the rotator cuff of right shoulder, subsequent encounter Isamar M. Vespa, [facility] 12/16/2019 S46.011D Strain of muscle(s) and tendon(s) of the rotator cuff of right shoulder, subsequent encounter Isamar M. Vespa, [facility] 12/13/2019 S46.011D Strain of muscle(s) and tendon(s) of the rotator cuff of right shoulder, subsequent encounter Isamar M. Vespa, [facility] 12/08/2019 S46.011D Strain of muscle(s) and tendon(s) of the rotator cuff of right shoulder, subsequent encounter Isamar M. Vespa, [facility] 12/06/2019 S46.011D Strain of muscle(s) and tendon(s) of the rotator cuff of right shoulder, subsequent encounter Isamar Win, MSPT 12/01/2019 S46.011D Strain of muscle(s) and [...] Rosas PA-C Plan of Treatment Future Appointment(s):* 02/24/2020 1:30 pm - [facility] Conde at Physical Therapy * 03/16/2020 10:45 am - Max Barba MD at [place] 02/14/2020 - Max Barba MD* S46.011D Strain of muscle(s) and tendon(s) of the rotator cuff of right shoulder, subsequent encounter* Follow up:* in 6 weeks with DPV for right shoulder recheck please. Functional Status Description No Information Available Mental Status Description No Information Available Referrals Refer to Reason for Referral Status Appt Date Wei Barba MD PT- RT SHOULDER WRITTEN AUTH PASSED TO PT DEPT. Created [address] [place] [address] [phone] Wei Barba MD PT- RT SHOULDER OK TO [facility] 3 MONTHS AFTER SURGERY. PASSED TO PT DEPT. Created [address] [place] [phone]
--- OUTSIDE RECORDS SUMMARY | 2020-03-05 15:18 | CCD | Continuity of Care Document ---
Author Author Christy BARBA MD Organization Unknown Address [address] [facility], it e [address] [place] [address] Phone [phone] Care Team Providers Care Scalp Treatment Specialist Name Role Phone Renetta Loo DREW AUTM [phone] Gurdeep Pritchard PA-C AUTM [phone] Problems Active Problems Provider Date Arthralgia of [...] tabs p.o every 6 hours as needed for pain 30tabs DMaida Barba MD 11/07/2019 Xarelto [...] bedtime as needed for anxiety Unknown Biotin [id number] Tablets 1 by mouth every day Unknown [...] H/L Range Note Laboratory test finding 11/03/2019 [facility] [address] [place] [address] (315)- - Coronavirus 2019 Nasopharygeal This nucleic aci <SEE NOTE> 1 1 This nucleic acid amplificat ion test was developed and its performance characteristics determined by [employer]. Nucleic acid amplification tests include PCR and [...] this assay. Performed at: RN - [facility] [address] [id number] Mechanical Systems Designer: Val Parmar MD, Phone: [phone] Not Detected Procedures Date Code Description Status 02/27/2020 10399 Therapeutic Procedure, Each 15 M inutes Completed 02/27/2020 22176 Electrical Stimulati on Manual, Each 15 Min, Constant Attendance Completed 02/27/2020 08038 Hot Or Cold Packs Completed 02/24/2020 63098 Electrical Stimulati on Manual, Each 15 Min, Constant Attendance Completed 02/24/2020 04119 Hot Or Cold Packs Completed 02/20/2020 33447 Therapeutic Procedure, Each 15 M inutes Completed 02/20/2020 27764 Therapeutic Procedure, Each 15 M inutes Completed 02/20/2020 51005 Electrical Stimulati on Manual, Each 15 Min, Constant Attendance Completed 02/20/2020 96471 Hot Or Cold Packs Completed 02/06/2020 53478 Hot Or Cold Packs Completed 02/06/2020 72915 Electrical Stimulati on Manual, Each 15 Min, Constant Attendance Completed 02/06/2020 60058 Therapeutic Procedure, Each 15 M inutes Completed 02/06/2020 71541 Therapeutic Procedure, Each 15 M inutes Completed 02/02/2020 69587 Therapeutic Procedure, Each 15 M inutes Completed 02/02/2020 18491 Therapeutic Procedure, Each 15 M inutes Completed 02/02/2020 69740 Electrical Stimulati on Manual, Each 15 Min, Constant Attendance Completed 02/02/2020 80230 Hot Or Cold Packs Completed 01/30/2020 67619 Hot Or Cold Packs Completed 01/30/2020 45063 Electrical Stimulati on Manual, Each 15 Min, Constant Attendance Completed 01/30/2020 82895 Therapeutic Procedure, Each 15 M inutes Completed 01/30/2020 14173 Therapeutic Procedure, Each 15 M inutes Completed 01/30/2020 85144 Therapeutic Procedure, Each 15 M inutes Completed 01/26/2020 70398 Therapeutic Procedure, Each 15 M inutes Completed 01/26/2020 60962 Therapeutic Procedure, Each 15 M inutes Completed 01/26/2020 69672 Electrical Stimulati on Manual, Each 15 Min, Constant Attendance Completed 01/26/2020 99586 Hot Or Cold Packs Completed 01/23/2020 92584 Hot Or Cold Packs Completed 01/23/2020 01525 Electrical Stimulati on Manual, Each 15 Min, Constant Attendance Completed 01/23/2020 59773 Therapeutic Procedure, Each 15 M inutes Completed 01/23/2020 49860 Therapeutic Procedure, Each 15 M inutes Completed 01/02/2020 29669 Manual Therapy Each 15 Minutes C ompleted 01/02/2020 00245 Therapeutic Procedure, Each 15 M inutes Completed 01/02/2020 43395 Electrical Stimulati on Manual, Each 15 Min, Constant Attendance Completed 01/02/2020 65198 Hot Or Cold Packs Completed 12/30/2019 12956 Hot Or Cold Packs Completed 12/30/2019 58867 Electrical Stimulati on Manual, Each 15 Min, Constant Attendance Completed 12/30/2019 73935 Therapeutic Procedure, Each 15 M inutes Completed 12/30/2019 83020 Manual Therapy Each 15 Minutes C ompleted 12/26/2019 02124 Manual Therapy Each 15 Minutes C ompleted 12/26/2019 70660 Therapeutic Procedure, Each 15 M inutes Completed 12/26/2019 79522 Electrical Stimulati on Manual, Each 15 Min, Constant Attendance Completed 12/26/2019 02796 Hot Or Cold Packs Completed 12/23/2019 49825 Hot Or Cold Packs Completed 12/23/2019 35313 Electrical Stimulati on Manual, Each 15 Min, Constant Attendance Completed 12/23/2019 75082 Therapeutic Procedure, Each 15 M inutes Completed 12/23/2019 08842 Manual Therapy Each 15 Minutes C ompleted 12/20/2019 86144 Therapeutic Procedure, Each 15 M inutes Completed 12/20/2019 23176 Electrical Stimulati on Manual, Each 15 Min, Constant Attendance Completed 12/20/2019 71524 Hot Or Cold Packs Completed 12/16/2019 45427 Therapeutic Procedure, Each 15 M inutes Completed 12/16/2019 95760 Electrical Stimulati on Manual, Each 15 Min, Constant Attendance Completed 12/16/2019 95892 Hot Or Cold Packs Completed 12/13/2019 83723 Hot Or Cold Packs Completed 12/13/2019 90404 Electrical Stimulati on Manual, Each 15 Min, Constant Attendance Completed 12/13/2019 13000 Therapeutic Procedure, Each 15 M inutes Completed 12/08/2019 99725 Therapeutic Procedure, Each 15 M inutes Completed 12/08/2019 28467 Therapeutic Procedure, Each 15 M inutes Completed 12/08/2019 11214 Electrical Stimulati on Manual, Each 15 Min, Constant Attendance Completed 12/08/2019 37656 Hot Or Cold Packs Completed 12/06/2019 39564 Hot Or Cold Packs Completed 12/06/2019 91116 Electrical Stimulati on Manual, Each 15 Min, Constant Attendance Completed 12/06/2019 73098 Therapeutic Procedure, Each 15 M inutes Completed 12/06/2019 99872 Therapeutic Procedure, Each 15 M inutes Completed 12/01/2019 77652 Therapeutic Procedure, Each 15 M inutes Completed 12/01/2019 99174 Hot Or Cold Packs Completed 11/29/2019 98576 Therapeutic Procedure, Each 15 M inutes Completed 11/29/2019 87495 Hot Or Cold Packs Completed 11/24/2019 99160 Physical Therapy Eval - Low Comp lexity Completed 11/08/2019 54070 Arthroscopy Shoulder Surgical Wi th Rotator Cuff Repair Completed 11/08/2019 74476 Arthroscopy Shoulder Remove Loose/Foreign Body Dist Claviculectom Completed 09/20/201967187 Inject/Drain Joint/Bursa Major C ompleted Medical Devices [...] right shoulder, subs Office Visit 09/20/2019 11:[facility]a [facility] PA-C S46.011 D Strain of musc/tend the rotator cuff of right shoulder, subs Assessments Date Code Description Provider 02/27/2020 S46.011D Strain of muscle(s) and tendon(s) of the rotator cuff of right shoulder, subsequent encounter RUBINA Conde 02/24/2020 S46.011D Strain of muscle(s) and tendon(s) of the rotator cuff of right shoulder, subsequent encounter [facility], [facility] 02/20/2020 S46.011D Strain of muscle(s) and tendon(s) of the rotator cuff of right shoulder, subsequent encounter Isamar Win, [facility] 02/14/2020 S46.011D Strain of muscle(s) and tendon(s) of the rotator cuff of right shoulder, subsequent encounter Max Barba MD 02/06/2020 S46.011D Strain of muscle(s) and tendon(s) of the rotator cuff of right shoulder, subsequent encounter Leeroy Gaytan, PT, DPT 02/02/2020 S46.011D Strain of muscle(s) and tendon(s) of the rotator cuff of right shoulder, subsequent encounter Isamar Win, [facility] 01/30/2020 S46.011D Strain of muscle(s) and tendon(s) of the rotator cuff of right shoulder, subsequent encounter Isamar Win, [facility] 01/26/2020 S46.011D Strain of muscle(s) and tendon(s) of the rotator cuff of right shoulder, subsequent encounter Isamar M. Quirino, [facility] 01/23/2020 S46.011D Strain of muscle(s) and tendon(s) of the rotator cuff of right shoulder, subsequent encounter Isamar M. Quirino, [facility] 01/05/2020 S46.011D Strain of muscle(s) and tendon(s) of the rotator cuff of right shoulder, subsequent encounter Max Barba MD 01/02/2020 S46.011D Strain of muscle(s) and tendon(s) of the rotator cuff of right shoulder, subsequent encounter Isamar M. [place], [facility] 12/30/2019 S46.011D Strain of muscle(s) and tendon(s) of the rotator cuff of right shoulder, subsequent encounter Isamar M. Vespa, [facility] 12/26/2019 S46.011D Strain of muscle(s) and tendon(s) of the rotator cuff of right shoulder, subsequent encounter Isamar M. Vespa, [facility] 12/23/2019 S46.011D Strain of muscle(s) and tendon(s) of the rotator cuff of right shoulder, subsequent encounter Isamar M. Quirino, [facility] 12/20/2019 S46.011D Strain of muscle(s) and tendon(s) of the rotator cuff of right shoulder, subsequent encounter Isamar Win, [facility] 12/16/2019 S46.011D Strain of muscle(s) and tendon(s) of the rotator cuff of right shoulder, subsequent encounter Isamar Win, [facility] 12/13/2019 S46.011D Strain of muscle(s) and tendon(s) of the rotator cuff of right shoulder, subsequent encounter Isamar Win, [facility] 12/08/2019 S46.011D Strain of muscle(s) and tendon(s) of the rotator cuff of right shoulder, subsequent encounter Isamar Win, [facility] 12/06/2019 S46.011D Strain of muscle(s) and tendon(s) of the rotator cuff of right shoulder, subsequent encounter Isamar Wni, [facility] 12/01/2019 S46.011D Strain of muscle(s) and tendon(s) of the rotator cuff of right shoulder, subsequent encounter Isamar Win, [facility] 11/29/2019 S46.011D Strain of muscle(s) and tendon(s) of the rotator cuff of right shoulder, subsequent encounter Isamar Win, [facility] 11/24/2019 S46.011D Strain of muscle(s) and tendon(s) [...] Rosas PA-C Plan of Treatment Future Appointment(s):* 03/16/2020 10:45 am - Max Barba MD at [place] 02/14/2020 - Max Barba MD* S46.011D Strain [...] WRITTEN AUTH PASSED TO PT DEPT. Created [address] [place] [phone] Wei Barba MD PT- RT SHOULDER OK TO [facility] 3 MONTHS AFTER SURGERY. PASSED TO PT DEPT. Created [address] [place] [id number] [phone]
--- OUTSIDE RECORDS SUMMARY | 2020-03-05 15:19 | CCD | Continuity of Care Document ---
Author Author Christy WIN MSPT Organization Unknown Address [address] [place] [address], [facility] [address] [place] [address] Phone [phone] Care Team Providers Care Labels Molder Name Role Phone Cinda Renetta DREW AUTM [phone] Gurdeep Pritchard PA-C AUTM [phone] Problems Active Problems Provider Date Arthralgia of the ankle and/or foot Onse t: 12/07/1998 Adhesive capsulitis of shoulder Becka Veras DO Onset: 0 06/06/2011 Social History Type Date [...] bedtime as needed for anxiety Unknown Biotin [id number] Tablets 1 by mouth every day Unknown [...] Available Vital Signs Date Vital Result Comment 05/06/2019 2:53pm Body Temperature 97.5 F Height 63 inches 5'3" Weight 152.00 lb BMI (Body Mass Index) 26.9 kg/m2 10/11/2018 9:33am Body Temperature 98.1 F Results Test Acquired Date Facility Test Result H/L Range Note Laboratory test finding 11/03/2019 [facility] [address] [place] [address] (315)- - Coronavirus 2019 Nasopharygeal This nucleic aci <SEE NOTE> 1 1 This nucleic acid amplificat ion test was developed and its performance characteristics determined by [employer]. Nucleic acid amplification tests include PCR and [...] this assay. Performed at: RN - [facility] [address] [id number] Business Continuity Director: Val Parmar MD, Phone: [phone] Not Detected Procedures Date Code Description Status 01/30/2020 54395 Therapeutic Procedure, Each 15 M inutes Completed 01/30/2020 95126 Therapeutic Procedure, Each 15 M inutes Completed 01/30/2020 46875 Electrical Stimulati on Manual, Each 15 Min, Constant Attendance Completed 01/30/2020 76930 Hot Or Cold Packs Completed 01/26/2020 31242 Therapeutic Procedure, Each 15 M inutes Completed 01/26/2020 89179 Therapeutic Procedure, Each 15 M inutes Completed 01/26/2020 78081 Electrical Stimulati on Manual, Each 15 Min, Constant Attendance Completed 01/26/2020 52231 Hot Or Cold Packs Completed 01/23/2020 65629 Therapeutic Procedure, Each 15 M inutes Completed 01/23/2020 96522 Therapeutic Procedure, Each 15 M inutes Completed 01/23/2020 31023 Electrical Stimulati on Manual, Each 15 Min, Constant Attendance Completed 01/23/2020 57171 Hot Or Cold Packs Completed 01/02/2020 47874 Hot Or Cold Packs Completed 01/02/2020 27872 Electrical Stimulati on Manual, Each 15 Min, Constant Attendance Completed 01/02/2020 90871 Therapeutic Procedure, Each 15 M inutes Completed 01/02/2020 77850 Manual Therapy Each 15 Minutes C ompleted 12/30/2019 03563 Manual Therapy Each 15 Minutes C ompleted 12/30/2019 33443 Therapeutic Procedure, Each 15 M inutes Completed 12/30/2019 11639 Electrical Stimulati on Manual, Each 15 Min, Constant Attendance Completed 12/30/2019 97492 Hot Or Cold Packs Completed 12/26/2019 78622 Manual Therapy Each 15 Minutes C ompleted 12/26/2019 78964 Therapeutic Procedure, Each 15 M inutes Completed 12/26/2019 47664 Electrical Stimulati on Manual, Each 15 Min, Constant Attendance Completed 12/26/2019 88571 Hot Or Cold Packs Completed 12/23/2019 88359 Hot Or Cold Packs Completed 12/23/2019 30117 Electrical Stimulati on Manual, Each 15 Min, Constant Attendance Completed 12/23/2019 17182 Therapeutic Procedure, Each 15 M inutes Completed 12/23/2019 08311 Manual Therapy Each 15 Minutes C ompleted 12/20/2019 39070 Therapeutic Procedure, Each 15 M inutes Completed 12/20/2019 68751 Electrical Stimulati on Manual, Each 15 Min, Constant Attendance Completed 12/20/2019 21169 Hot Or Cold Packs Completed 12/16/2019 38303 Therapeutic Procedure, Each 15 M inutes Completed 12/16/2019 90624 Electrical Stimulati on Manual, Each 15 Min, Constant Attendance Completed 12/16/2019 11947 Hot Or Cold Packs Completed 12/13/2019 92561 Therapeutic Procedure, Each 15 M inutes Completed 12/13/2019 98524 Electrical Stimulati on Manual, Each 15 Min, Constant Attendance Completed 12/13/2019 53558 Hot Or Cold Packs Completed 12/08/2019 81141 Hot Or Cold Packs Completed 12/08/2019 78730 Electrical Stimulati on Manual, Each 15 Min, Constant Attendance Completed 12/08/2019 29478 Therapeutic Procedure, Each 15 M inutes Completed 12/08/2019 41144 Therapeutic Procedure, Each 15 M inutes Completed 12/06/2019 14450 Therapeutic Procedure, Each 15 M inutes Completed 12/06/2019 03566 Therapeutic Procedure, Each 15 M inutes Completed 12/06/2019 05729 Electrical Stimulati on Manual, Each 15 Min, Constant Attendance Completed 12/06/2019 29048 Hot Or Cold Packs Completed 12/01/2019 09410 Therapeutic Procedure, Each 15 M inutes Completed 12/01/2019 23048 Hot Or Cold Packs Completed 11/29/2019 17619 Therapeutic Procedure, Each 15 M inutes Completed 11/29/2019 32280 Hot Or Cold Packs Completed 11/24/2019 98919 Physical Therapy Eval - Low Comp lexity Completed 11/08/2019 07266 Arthroscopy Shoulder Surgical Wi th Rotator Cuff Repair Completed 11/08/2019 50717 Arthroscopy Shoulder Remove Loose/Foreign Body Dist Claviculectom Completed 09/20/2019 55745 Inject/Drain Joint/Bursa Major C ompleted Medical Devices Description No Information Available Encounters Type Date Location Provider Dx Diagnosis Office Visit 01/05/2020 1:00p Penny Barba MD S4 6.011D Strain of musc/tend the rotator cuff of right shoulder, subs Office Visit 11/16/2019 10:00agustin Barba MD S4 6.011D Strain of musc/tend the rotator cuff of right shoulder, subs Office Visit 09/20/2019 11:15a Penny Rosas PA-C S46.011 D Strain of musc/tend the rotator cuff of right shoulder, subs Assessments Date Code Description Provider 01/30/2020 S46.011D Strain of muscle(s) and tendon(s) of the rotator cuff of right shoulder, subsequent encounter Isamar Win, [facility] 01/26/2020 S46.011D Strain of muscle(s) and tendon(s) of the rotator cuff of right shoulder, subsequent encounter Isamar Win, [facility] 01/23/2020 S46.011D Strain of muscle(s) and tendon(s) of the rotator cuff of right shoulder, subsequent encounter Isamar M. Vesp[place]ito, [facility] 01/05/2020 S46.011D Strain of muscle(s) and tendon(s) of the rotator cuff of right shoulder, subsequent encounter Max Barba MD 01/02/2020 S46.011D Strain of muscle(s) and tendon(s) of the rotator cuff of right shoulder, subsequent encounter Isamar M. Vespa, [facility] 12/30/2019 S46.011D Strain of muscle(s) and tendon(s) of the rotator cuff of right shoulder, subsequent encounter Isamar M. Vespa, [facility] 12/26/2019 S46.011D Strain of muscle(s) and tendon(s) of the rotator cuff of right shoulder, subsequent encounter Isamar M. Vespa, [facility] 12/23/2019 S46.011D Strain of muscle(s) and tendon(s) of the rotator cuff of right shoulder, subsequent encounter Isamar M. Vespa, [facility] 12/20/2019 S46.011D Strain of muscle(s) and tendon(s) of the rotator cuff of right shoulder, subsequent encounter Isamar M. Vespa, [facility] 12/16/2019 S46.011D Strain of muscle(s) and tendon(s) of the rotator cuff of right shoulder, subsequent encounter Isamar M. Vespa, [facility] 12/13/2019 S46.011D Strain of muscle(s) and tendon(s) of the rotator cuff of right shoulder, subsequent encounter [facility]amar Win, [facility] 12/08/2019 S46.011D Strain of muscle(s) and tendon(s) of the rotator cuff of right shoulder, subsequent encounter Isamar Win, [facility] 12/06/2019 S46.011D Strain of muscle(s) and tendon(s) of the rotator cuff of right shoulder, subsequent encounter Isamar Win, [facility] 12/01/2019 S46.011D Strain of muscle(s) and tendon(s) of the rotator cuff of right shoulder, subsequent encounter Isamar Win, [facility] 11/29/2019 S46.011D Strain of muscle(s) and tendon(s) of the rotator cuff of right shoulder, subsequent encounter Isamar Win, [facility] 11/24/2019 S46.011D Strain of muscle(s) and tendon(s) of the rotator cuff of right shoulder, subsequent encounter Leeroy Gaytan, PT, DPT 11/16/2019 S46.011D Strain of muscle(s) and tendon(s) of the rotator cuff of right shoulder, subsequent encounter Max Barba MD 11/08/2019 S46.011A Strain of muscle(s) and tendon(s) of the rotator cuff of right shoulder, initial encounter Max Barba MD 11/08/2019 M19.011 Primary osteoarthritis, right oulder Max Barba MD 11/08/2019 X50.9xxA Other [...] Rosas PA-C Plan of Treatment Future Appointment(s):* 02/06/2020 4:00 pm - Leeroy Gaytan, PT, DPT at Physical Therapy * 02/13/2020 9:45 am - Wei. Maximilian Barba MD at [place] Functional Status Description No Information Available Mental Status Description No Information Available Referrals Refer to Reason for Referral Status Appt Date Wei Barba MD PT- [facility] MONTHS AFTER SURGERY. PASSED TO PT DEPT. LS Created [facility], [address] [place] [address] [phone]
--- OUTSIDE RECORDS SUMMARY | 2020-03-05 15:19 | CCD | Continuity of Care Document ---
Author Author Christy JOHNSON DPT Organization Unknown Address [address] [place] [address] Phone [phone] Care Team Providers Care Senior Application Security Consultant Name Role Phone Renetta Loo DREW AUTM [phone] Gurdeep Pritchard PA-C AUTM [phone] Problems Active Problems Provider Date Arthralgia of [...] hours as needed post surgical pain 30tabs Max Barba MD 11/07/2019 Xarelto 20mg Tablets every [...] bedtime as needed for anxiety Unknown Biotin [id number] Tablets 1 by mouth every day Unknown [...] H/L Range Note Laboratory test finding 11/03/2019 [facility] [address] [place] [address] (315)- - Coronavirus 2019 Nasopharygeal This nucleic aci <SEE NOTE> 1 1 This nucleic acid amplificat ion test was developed and its performance characteristics determined by [employer]. Nucleic acid amplification tests include PCR and [...] in this assay. Performed at: RN - [facility] [id number] Quality Control Representative: Val Parmar MD, Phone: [phone] Not Detected Procedures Date Code Description Status 02/06/2020 21108 Therapeutic Procedure, Each 15 M inutes Completed 02/06/2020 36876 Electrical Stimulati on Manual, Each 15 Min, Constant Attendance Completed 02/06/2020 14132 Hot Or Cold Packs Completed 02/02/2020 28136 Therapeutic Procedure, Each 15 M inutes Completed 02/02/2020 36442 Therapeutic Procedure, Each 15 M inutes Completed 02/02/2020 78265 Electrical Stimulati on Manual, Each 15 Min, Constant Attendance Completed 02/02/2020 34734 Hot Or Cold Packs Completed 01/30/2020 58134 Therapeutic Procedure, Each 15 M inutes Completed 01/30/2020 68459 Therapeutic Procedure, Each 15 M inutes Completed 01/30/2020 78938 Therapeutic Procedure, Each 15 M inutes Completed 01/30/2020 34438 Electrical Stimulati on Manual, Each 15 Min, Constant Attendance Completed 01/30/2020 08742 Hot Or Cold Packs Completed 01/26/2020 84141 Hot Or Cold Packs Completed 01/26/2020 16965 Electrical Stimulati on Manual, Each 15 Min, Constant Attendance Completed 01/26/2020 76658 Therapeutic Procedure, Each 15 M inutes Completed 01/26/2020 41161 Therapeutic Procedure, Each 15 M inutes Completed 01/23/2020 45542 Therapeutic Procedure, Each 15 M inutes Completed 01/23/2020 88056 Therapeutic Procedure, Each 15 M inutes Completed 01/23/2020 55568 Electrical Stimulati on Manual, Each 15 Min, Constant Attendance Completed 01/23/2020 20815 Hot Or Cold Packs Completed 01/02/2020 14269 Manual Therapy Each 15 Minutes C ompleted 01/02/2020 55948 Therapeutic Procedure, Each 15 M inutes Completed 01/02/2020 60323 Electrical Stimulati on Manual, Each 15 Min, Constant Attendance Completed 01/02/2020 71965 Hot Or Cold Packs Completed 12/30/2019 98131 Manual Therapy Each 15 Minutes C ompleted 12/30/2019 53069 Therapeutic Procedure, Each 15 M inutes Completed 12/30/2019 07899 Electrical Stimulati on Manual, Each 15 Min, Constant Attendance Completed 12/30/2019 40058 Hot Or Cold Packs Completed 12/26/2019 66732 Hot Or Cold Packs Completed 12/26/2019 47821 Electrical Stimulati on Manual, Each 15 Min, Constant Attendance Completed 12/26/2019 09594 Therapeutic Procedure, Each 15 M inutes Completed 12/26/2019 29119 Manual Therapy Each 15 Minutes C ompleted 12/23/2019 68982 Manual Therapy Each 15 Minutes C ompleted 12/23/2019 01723 Therapeutic Procedure, Each 15 M inutes Completed 12/23/2019 74916 Electrical Stimulati on Manual, Each 15 Min, Constant Attendance Completed 12/23/2019 49639 Hot Or Cold Packs Completed 12/20/2019 38037 Hot Or Cold Packs Completed 12/20/2019 56104 Electrical Stimulati on Manual, Each 15 Min, Constant Attendance Completed 12/20/2019 82026 Therapeutic Procedure, Each 15 M inutes Completed 12/16/2019 32030 Therapeutic Procedure, Each 15 M inutes Completed 12/16/2019 97317 Electrical Stimulati on Manual, Each 15 Min, Constant Attendance Completed 12/16/2019 49607 Hot Or Cold Packs Completed 12/13/2019 40684 Therapeutic Procedure, Each 15 M inutes Completed 12/13/2019 92459 Electrical Stimulati on Manual, Each 15 Min, Constant Attendance Completed 12/13/2019 33595 Hot Or Cold Packs Completed 12/08/2019 29597 Hot Or Cold Packs Completed 12/08/2019 60232 Electrical Stimulati on Manual, Each 15 Min, Constant Attendance Completed 12/08/2019 31675 Therapeutic Procedure, Each 15 M inutes Completed 12/08/2019 23620 Therapeutic Procedure, Each 15 M inutes Completed 12/06/2019 49574 Therapeutic Procedure, Each 15 M inutes Completed 12/06/2019 64571 Therapeutic Procedure, Each 15 M inutes Completed 12/06/2019 99097 Electrical Stimulati on Manual, Each 15 Min, Constant Attendance Completed 12/06/2019 75781 Hot Or Cold Packs Completed 12/01/2019 94947 Therapeutic Procedure, Each 15 M inutes Completed 12/01/2019 95859 Hot Or Cold Packs Completed 11/29/2019 23378 Therapeutic Procedure, Each 15 M inutes Completed 11/29/2019 86564 Hot Or Cold Packs Completed 11/24/2019 18403 Physical Therapy Eval - Low Comp lexity Completed 11/08/2019 73919 Arthroscopy Shoulder Surgical Wi th Rotator Cuff Repair Completed 11/08/2019 39775 Arthroscopy Shoulder Remove Loose/Foreign Body Dist Claviculectom Completed 09/20/201912896 Inject/Drain Joint/Bursa Major C ompleted Medical Devices Description No Information Available Encounters Type Date Location Provider Dx Diagnosis Office Visit 01/05/2020 1:[facility]p [facility] S4 6.011D Strain of musc/tend the rotator cuff of right shoulder, subs Office Visit 11/16/2019 10:00a [facility] S4 6.011D Strain of musc/tend the rotator cuff of right shoulder, subs Office Visit 09/20/2019 11:15a [facility] Mindy Rosas PA-C S46.011 D Strain of musc/tend the rotator cuff of right shoulder, subs Assessments Date Code Description Provider 02/02/2020 S46.011D Strain of muscle(s) and tendon(s) of the rotator cuff of right shoulder, subsequent encounter Isamar Win, [facility] 01/30/2020 S46.011D Strain of muscle(s) and tendon(s) of the rotator cuff of right shoulder, subsequent encounter Isamar Win, [facility] 01/26/2020 S46.011D Strain of muscle(s) and tendon(s) of the rotator cuff of right shoulder, subsequent encounter Isamar Win, [facility] 01/23/2020 S46.011D Strain of muscle(s) and tendon(s) of the rotator cuff of right shoulder, subsequent encounter Isamar Win, [facility] 01/05/2020 S46.011D Strain of muscle(s) and tendon(s) of the rotator cuff of right shoulder, subsequent encounter Max Barba MD 01/02/2020 S46.011D Strain of muscle(s) and tendon(s) of the rotator cuff of right shoulder, subsequent encounter Isamar Win, [facility] 12/30/2019 S46.011D Strain of muscle(s) and tendon(s) of the rotator cuff of right shoulder, subsequent encounter Isamar Win, [facility] 12/26/2019 S46.011D Strain of muscle(s) and tendon(s) of the rotator cuff of right shoulder, subsequent encounter Isamar [place]. [place], [facility] 12/23/2019 S46.011D Strain of muscle(s) and tendon(s) of the rotator cuff of right shoulder, subsequent encounter Isamar M. [place], [facility] 12/20/2019 S46.011D Strain of muscle(s) and tendon(s) of the rotator cuff of right shoulder, subsequent encounter Isamar M. [place], [facility] 12/16/2019 S46.011D Strain of muscle(s) and tendon(s) of the rotator cuff of right shoulder, subsequent encounter Isamar M. [place], [facility] 12/13/2019 S46.011D Strain of muscle(s) and tendon(s) of the rotator cuff of right shoulder, subsequent encounter Isamar M. [place], [facility] 12/08/2019 S46.011D Strain of muscle(s) and tendon(s) of the rotator cuff of right shoulder, subsequent encounter Isamar M. [place], [facility] 12/06/2019 S46.011D Strain of muscle(s) and tendon(s) of the rotator cuff of right shoulder, subsequent encounter Isamar M. [place], [facility] 12/01/2019 S46.011D Strain of muscle(s) and tendon(s) of the rotator cuff of right shoulder, subsequent encounter Isamar M. [place], [facility] 11/29/2019 S46.011D Strain of muscle(s) and tendon(s) of the rotator cuff of right shoulder, subsequent encounter Isamar M. [place], [facility] 11/24/2019 S46.011D Strain of muscle(s) and tendon(s) of the rotator cuff of right shoulder, subsequent encounter Leeroy Johnson, PT, DPT 11/16/2019 S46.011D Strain of muscle(s) [...] Rosas PA-C Plan of Treatment Future Appointment(s):* 02/13/2020 9:45 am - Max Barba MD at [facility] Functional Status Description No Information Available Mental Status Description No Information Available Referrals Refer to Dr Reason for Referral Status Appt Date Wei Barba MD PT- RT SHOULDER WRITTEN AUTH PASSED TO PT DEPT. Created [address] [place] [phone] Wei Barba MD PT- RT SHOULDER OK TO [facility] 3 MONTHS AFTER SURGERY. PASSED TO PT DEPT. Created [address] [place] [phone]
--- OUTSIDE RECORDS SUMMARY | 2020-03-05 15:19 | CCD | Continuity of Care Document ---
Author Author Christy WIN MSPT Organization Unknown Address [address] [place] [address], [facility] [address] [place] [address] Phone [phone] Care Team Providers Care Holiday Detector Operator Name Role Phone Cinda Renetta DREW AUTM [phone] Gurdeep Pritchard PA-C AUTM [phone] Problems Active Problems Provider Date Arthralgia of [...] bedtime as needed for anxiety Unknown Biotin [id number] Tablets 1 by mouth every day Unknown [...] H/L Range Note Laboratory test finding 11/03/2019 [facility] [address] [place] [address] (315)- - Coronavirus 2019 Nasopharygeal This nucleic aci <SEE NOTE> 1 1 This nucleic acid amplificat ion test was developed and its performance characteristics determined by [employer]. Nucleic acid amplification tests include PCR and [...] this assay. Performed at: RN - [facility] [address] [id number] Breaker Off: Val Parmar MD, Phone: [phone] Not Detected Procedures Date Code Description Status 02/02/2020 59893 Therapeutic Procedure, Each 15 M inutes Completed 02/02/2020 08148 Therapeutic Procedure, Each 15 M inutes Completed 02/02/2020 24801 Electrical Stimulati on Manual, Each 15 Min, Constant Attendance Completed 02/02/2020 57370 Hot Or Cold Packs Completed 01/30/2020 21585 Therapeutic Procedure, Each 15 M inutes Completed 01/30/2020 14058 Therapeutic Procedure, Each 15 M inutes Completed 01/30/2020 49742 Therapeutic Procedure, Each 15 M inutes Completed 01/30/2020 99828 Electrical Stimulati on Manual, Each 15 Min, Constant Attendance Completed 01/30/2020 58475 Hot Or Cold Packs Completed 01/26/2020 27629 Therapeutic Procedure, Each 15 M inutes Completed 01/26/2020 74859 Therapeutic Procedure, Each 15 M inutes Completed 01/26/2020 29481 Electrical Stimulati on Manual, Each 15 Min, Constant Attendance Completed 01/26/2020 11794 Hot Or Cold Packs Completed 01/23/2020 35526 Hot Or Cold Packs Completed 01/23/2020 05110 Electrical Stimulati on Manual, Each 15 Min, Constant Attendance Completed 01/23/2020 44599 Therapeutic Procedure, Each 15 M inutes Completed 01/23/2020 38352 Therapeutic Procedure, Each 15 M inutes Completed 01/02/2020 27943 Manual Therapy Each 15 Minutes C ompleted 01/02/2020 57788 Therapeutic Procedure, Each 15 M inutes Completed 01/02/2020 22105 Electrical Stimulati on Manual, Each 15 Min, Constant Attendance Completed 01/02/2020 83653 Hot Or Cold Packs Completed 12/30/2019 81824 Manual Therapy Each 15 Minutes C ompleted 12/30/2019 33985 Therapeutic Procedure, Each 15 M inutes Completed 12/30/2019 01990 Electrical Stimulati on Manual, Each 15 Min, Constant Attendance Completed 12/30/2019 32989 Hot Or Cold Packs Completed 12/26/2019 45995 Manual Therapy Each 15 Minutes C ompleted 12/26/2019 21239 Therapeutic Procedure, Each 15 M inutes Completed 12/26/2019 71146 Electrical Stimulati on Manual, Each 15 Min, Constant Attendance Completed 12/26/2019 47548 Hot Or Cold Packs Completed 12/23/2019 75381 Hot Or Cold Packs Completed 12/23/2019 38900 Electrical Stimulati on Manual, Each 15 Min, Constant Attendance Completed 12/23/2019 04541 Therapeutic Procedure, Each 15 M inutes Completed 12/23/2019 78925 Manual Therapy Each 15 Minutes C ompleted 12/20/2019 42786 Therapeutic Procedure, Each 15 M inutes Completed 12/20/2019 05679 Electrical Stimulati on Manual, Each 15 Min, Constant Attendance Completed 12/20/2019 68132 Hot Or Cold Packs Completed 12/16/2019 30204 Therapeutic Procedure, Each 15 M inutes Completed 12/16/2019 87495 Electrical Stimulati on Manual, Each 15 Min, Constant Attendance Completed 12/16/2019 15841 Hot Or Cold Packs Completed 12/13/2019 53772 Therapeutic Procedure, Each 15 M inutes Completed 12/13/2019 84187 Electrical Stimulati on Manual, Each 15 Min, Constant Attendance Completed 12/13/2019 10858 Hot Or Cold Packs Completed 12/08/2019 88759 Hot Or Cold Packs Completed 12/08/2019 94381 Electrical Stimulati on Manual, Each 15 Min, Constant Attendance Completed 12/08/2019 13374 Therapeutic Procedure, Each 15 M inutes Completed 12/08/2019 09735 Therapeutic Procedure, Each 15 M inutes Completed 12/06/2019 63830 Therapeutic Procedure, Each 15 M inutes Completed 12/06/2019 90459 Therapeutic Procedure, Each 15 M inutes Completed 12/06/2019 59077 Electrical Stimulati on Manual, Each 15 Min, Constant Attendance Completed 12/06/2019 86812 Hot Or Cold Packs Completed 12/01/2019 98999 Therapeutic Procedure, Each 15 M inutes Completed 12/01/2019 27324 Hot Or Cold Packs Completed 11/29/2019 65740 Therapeutic Procedure, Each 15 M inutes Completed 11/29/2019 87513 Hot Or Cold Packs Completed 11/24/2019 75151 Physical Therapy Eval - Low Comp lexity Completed 11/08/2019 42240 Arthroscopy Shoulder Surgical Wi th Rotator Cuff Repair Completed 11/08/2019 79552 Arthroscopy Shoulder Remove Loose/Foreign Body Dist Claviculectom Completed 09/20/2019 23619 Inject/Drain Joint/Bursa Major C ompleted Medical Devices Description No Information Available Encounters Type Date Location Provider Dx Diagnosis Office Visit 01/05/2020 1:00p Penny Barba MD S4 6.011D Strain of musc/tend the rotator cuff of right shoulder, subs Office Visit 11/16/2019 10:00a Penny Barba MD S4 6.011D Strain of musc/tend the rotator cuff of right shoulder, subs Office Visit 09/20/2019 11:15a [facility] PA-C S46.011 D Strain of musc/tend the rotator cuff of right shoulder, subs Assessments Date Code Description Provider 02/02/2020 S46.011D Strain of muscle(s) and tendon(s) of the rotator cuff of right shoulder, subsequent encounter Isamar Win, [facility] 01/30/2020 S46.011D Strain of muscle(s) and tendon(s) of the rotator cuff of right shoulder, subsequent encounter Isamar Win, [facility] 01/26/2020 S46.011D Strain of muscle(s) and tendon(s) of the rotator cuff of right shoulder, subsequent encounter Isamar Win, [facility] 01/23/2020 S46.011D Strain of muscle(s) and tendon(s) of the rotator cuff of right shoulder, subsequent encounter Isamar Win, [facility] 01/05/2020 S46.011D Strain of muscle(s) and tendon(s) of the rotator cuff of right shoulder, subsequent encounter Max Barba MD 01/02/2020 S46.011D Strain of muscle(s) and tendon(s) of the rotator cuff of right shoulder, subsequent encounter Isamar Win, [facility] 12/30/2019 S46.011D Strain of muscle(s) and tendon(s) of the rotator cuff of right shoulder, subsequent encounter Isamar Win, [facility] 12/26/2019 S46.011D Strain of muscle(s) and tendon(s) of the rotator cuff of right shoulder, subsequent encounter Isamar Win, [facility] 12/23/2019 S46.011D Strain of muscle(s) and tendon(s) of the rotator cuff of right shoulder, subsequent encounter [facility], [facility] 12/20/2019 S46.011D Strain of muscle(s) and tendon(s) of the rotator cuff of right shoulder, subsequent encounter Isamar Win, [facility] 12/16/2019 S46.011D Strain of muscle(s) and tendon(s) of the rotator cuff of right shoulder, subsequent encounter Isamar Win, [facility] 12/13/2019 S46.011D Strain of muscle(s) and tendon(s) of the rotator cuff of right shoulder, subsequent encounter Isamar Win, [facility] 12/08/2019 S46.011D Strain of muscle(s) and tendon(s) of the rotator cuff of right shoulder, subsequent encounter Isamar Win, [facility] 12/06/2019 S46.011D Strain of muscle(s) and tendon(s) of the rotator cuff of right shoulder, subsequent encounter Isamar Win, [facility] 12/01/2019 S46.011D Strain of muscle(s) and tendon(s) of the rotator cuff of right shoulder, subsequent encounter Isamar Win, [facility] 11/29/2019 S46.011D Strain of muscle(s) and tendon(s) of the rotator cuff of right shoulder, subsequent encounter Isamar Win, [facility] 11/24/2019 S46.011D Strain of muscle(s) [...] Physical Therapy * 02/13/2020 9:45 am - Max Barba MD at [facility] 01/05/2020 - Max Barba MD* S46.011D Strain of [...] WRITTEN AUTH PASSED TO PT DEPT. Created [address] [place] [phone] Wei Barba MD PT- RT SHOULDER OK TO [facility] 3 MONTHS AFTER SURGERY. PASSED TO PT DEPT. LS Created [address] [place] [phone]
--- OUTSIDE RECORDS SUMMARY | 2020-03-05 15:19 | CCD | Continuity of Care Document ---
Author Author Christy BARBA MD Organization Unknown Address [address] [facility] [address], [facility] e [address] [place] [id number] Phone [phone] Care Team Providers Care Reproduction Artist Name Role Phone Renetta Loo DREW AUTM [phone] Gurdeep Pritchard PA-C AUTM [phone] Problems Active Problems Provider Date Arthralgia of [...] hours as needed post surgical pain 30tabs D. Maximilian Barba MD 11/07/2019 Xarelto 20mg Tablets every [...] bedtime as needed for anxiety Unknown Biotin 12279kne Tablets 1 by mouth every day Unknown [...] H/L Range Note Laboratory test finding 11/03/2019 [facility] [address] [place] [address] (315)- - Coronavirus 2019 Nasopharygeal This nucleic aci <SEE NOTE> 1 1 This nucleic acid amplificat ion test was developed and its performance characteristics determined by [employer]. Nucleic acid amplification tests include PCR and [...] this assay. Performed at: RN - [facility] [address] [id number] Credit Rating Checker: Val Parmar MD, Phone: [phone] Not Detected Procedures Date Code Description Status 02/06/2020 71425 Therapeutic Procedure, Each 15 M inutes Completed 02/06/2020 27156 Therapeutic Procedure, Each 15 M inutes Completed 02/06/2020 90166 Electrical Stimulati on Manual, Each 15 Min, Constant Attendance Completed 02/06/2020 51158 Hot Or Cold Packs Completed 02/02/2020 86083 Therapeutic Procedure, Each 15 M inutes Completed 02/02/2020 05041 Therapeutic Procedure, Each 15 M inutes Completed 02/02/2020 69156 Electrical Stimulati on Manual, Each 15 Min, Constant Attendance Completed 02/02/2020 63417 Hot Or Cold Packs Completed 01/30/2020 00861 Therapeutic Procedure, Each 15 M inutes Completed 01/30/2020 06163 Therapeutic Procedure, Each 15 M inutes Completed 01/30/2020 57344 Therapeutic Procedure, Each 15 M inutes Completed 01/30/2020 51075 Electrical Stimulati on Manual, Each 15 Min, Constant Attendance Completed 01/30/2020 14094 Hot Or Cold Packs Completed 01/26/2020 99973 Hot Or Cold Packs Completed 01/26/2020 13624 Electrical Stimulati on Manual, Each 15 Min, Constant Attendance Completed 01/26/2020 06284 Therapeutic Procedure, Each 15 M inutes Completed 01/26/2020 29510 Therapeutic Procedure, Each 15 M inutes Completed 01/23/2020 92411 Therapeutic Procedure, Each 15 M inutes Completed 01/23/2020 30929 Therapeutic Procedure, Each 15 M inutes Completed 01/23/2020 22008 Electrical Stimulati on Manual, Each 15 Min, Constant Attendance Completed 01/23/2020 58544 Hot Or Cold Packs Completed 01/02/2020 71426 Manual Therapy Each 15 Minutes C ompleted 01/02/2020 56717 Therapeutic Procedure, Each 15 M inutes Completed 01/02/2020 41678 Electrical Stimulati on Manual, Each 15 Min, Constant Attendance Completed 01/02/2020 19806 Hot Or Cold Packs Completed 12/30/2019 73466 Manual Therapy Each 15 Minutes C ompleted 12/30/2019 72610 Therapeutic Procedure, Each 15 M inutes Completed 12/30/2019 54001 Electrical Stimulati on Manual, Each 15 Min, Constant Attendance Completed 12/30/2019 28858 Hot Or Cold Packs Completed 12/26/2019 92721 Hot Or Cold Packs Completed 12/26/2019 99970 Electrical Stimulati on Manual, Each 15 Min, Constant Attendance Completed 12/26/2019 27039 Therapeutic Procedure, Each 15 M inutes Completed 12/26/2019 36653 Manual Therapy Each 15 Minutes C ompleted 12/23/2019 02759 Manual Therapy Each 15 Minutes C ompleted 12/23/2019 70174 Therapeutic Procedure, Each 15 M inutes Completed 12/23/2019 67980 Electrical Stimulati on Manual, Each 15 Min, Constant Attendance Completed 12/23/2019 56425 Hot Or Cold Packs Completed 12/20/2019 25083 Hot Or Cold Packs Completed 12/20/2019 54085 Electrical Stimulati on Manual, Each 15 Min, Constant Attendance Completed 12/20/2019 07630 Therapeutic Procedure, Each 15 M inutes Completed 12/16/2019 15364 Therapeutic Procedure, Each 15 M inutes Completed 12/16/2019 72744 Electrical Stimulati on Manual, Each 15 Min, Constant Attendance Completed 12/16/2019 20025 Hot Or Cold Packs Completed 12/13/2019 53398 Therapeutic Procedure, Each 15 M inutes Completed 12/13/2019 82774 Electrical Stimulati on Manual, Each 15 Min, Constant Attendance Completed 12/13/2019 96507 Hot Or Cold Packs Completed 12/08/2019 84333 Hot Or Cold Packs Completed 12/08/2019 13242 Electrical Stimulati on Manual, Each 15 Min, Constant Attendance Completed 12/08/2019 52038 Therapeutic Procedure, Each 15 M inutes Completed 12/08/2019 11967 Therapeutic Procedure, Each 15 M inutes Completed 12/06/2019 40010 Therapeutic Procedure, Each 15 M inutes Completed 12/06/2019 63609 Therapeutic Procedure, Each 15 M inutes Completed 12/06/2019 85284 Electrical Stimulati on Manual, Each 15 Min, Constant Attendance Completed 12/06/2019 14520 Hot Or Cold Packs Completed 12/01/2019 20299 Therapeutic Procedure, Each 15 M inutes Completed 12/01/2019 99305 Hot Or Cold Packs Completed 11/29/2019 36883 Therapeutic Procedure, Each 15 M inutes Completed 11/29/2019 09701 Hot Or Cold Packs Completed 11/24/2019 08370 Physical Therapy Eval - Low Comp lexity Completed 11/08/2019 97548 Arthroscopy Shoulder Surgical Wi th Rotator Cuff Repair Completed 11/08/2019 68067 Arthroscopy Shoulder Remove Loose/Foreign Body Dist Claviculectom Completed 09/20/201973735 Inject/Drain Joint/Bursa Major C ompleted Medical Devices Description No Information Available Encounters Type Date Location Provider Dx Diagnosis Office Visit 01/05/2020 1:00p [place] Max Barba MD S4 6.011D Strain of musc/tend the rotator cuff of right shoulder, subs Office Visit 11/16/2019 10:00a Clevel[place]equiel Barba MD S4 6.011D Strain of musc/tend the rotator cuff of right shoulder, subs Office Visit 09/20/2019 11:15a [place] Mindy Rosas PA-C S46.011 D Strain of musc/tend the rotator cuff of right shoulder, subs Assessments Date Code Description Provider 02/14/2020 S46.011D Strain of muscle(s) and tendon(s) of the rotator cuff of right shoulder, subsequent encounter Max Barba MD 02/06/2020 S46.011D Strain of muscle(s) and tendon(s) of the rotator cuff of right shoulder, subsequent encounter Leeroy Gaytan, PT, DPT 02/02/2020 S46.011D Strain of muscle(s) and tendon(s) of the rotator cuff of right shoulder, subsequent encounter [facility], [facility] 01/30/2020 S46.011D Strain of muscle(s) and tendon(s) of the rotator cuff of right shoulder, subsequent encounter Isamar Win, [facility] 01/26/2020 S46.011D Strain of muscle(s) and tendon(s) of the rotator cuff of right shoulder, subsequent encounter Isamar Win, [facility]SP[facility] 01/23/2020 S46.011D Strain of muscle(s) and tendon(s) of the rotator cuff of right shoulder, subsequent encounter Isamar Win, [facility]SP[facility] 01/05/2020 S46.011D Strain of muscle(s) and tendon(s) of the rotator cuff of right shoulder, subsequent encounter Max Barba MD 01/02/2020 S46.011D Strain of muscle(s) and tendon(s) of the rotator cuff of right shoulder, subsequent encounter Isamar M. Vespa, [facility] [place] 12/30/2019 S46.011D Strain of muscle(s) and tendon(s) of the rotator cuff of right shoulder, subsequent encounter Isamar M. Vespa, [facility] [place] 12/26/2019 S46.011D Strain of muscle(s) and tendon(s) of the rotator cuff of right shoulder, subsequent encounter Isamar M. Vespa, [facility] [place] 12/23/2019 S46.011D Strain of muscle(s) and tendon(s) of the rotator cuff of right shoulder, subsequent encounter Isamar M. Vespa, [facility] [place] 12/20/2019 S46.011D Strain of muscle(s) and tendon(s) of the rotator cuff of right shoulder, subsequent encounter Isamar M. Vespa, [facility] [place] 12/16/2019 S46.011D Strain of muscle(s) and tendon(s) of the rotator cuff of right shoulder, subsequent encounter Isamar M. Vespa, [facility] [place] 12/13/2019 S46.011D Strain of muscle(s) and tendon(s) of the rotator cuff of right shoulder, subsequent encounter Isamar M. Vespa, [facility] [place] 12/08/2019 S46.011D Strain of muscle(s) and tendon(s) of the rotator cuff of right shoulder, subsequent encounter Isamar M. Vespa, [facility] [place] 12/06/2019 S46.011D Strain of muscle(s) and tendon(s) of the rotator cuff of right shoulder, subsequent encounter Isamar M. Vespa, [facility] [place] 12/01/2019 S46.011D Strain of muscle(s) and tendon(s) of the rotator cuff of right shoulder, subsequent encounter Isamar M. Vespa, [facility] [place] 11/29/2019 S46.011D Strain of muscle(s) and tendon(s) of the rotator cuff of right shoulder, subsequent encounter Isamar M. Vespa, [facility] [place] 11/24/2019 S46.011D Strain of muscle(s) and tendon(s) [...] encounter Mindy Rosas PA-C Plan of Treatment 02/14/2020 - Max Barba MD* S46.011D Strain [...] SHOULDER WRITTEN AUTH PASSED TO PT DEPT. LS Created [address] [place] [phone] Wei Barba MD PT- RT SHOULDER OK TO [facility] 3 MONTHS AFTER SURGERY. PASSED TO PT DEPT. LS Created [address] [place] [id number] [phone]
--- OUTSIDE RECORDS SUMMARY | 2020-03-05 15:19 | CCD | Continuity of Care Document ---
Author Author Christy JOHNSON DPT Organization Unknown Address [address] [place] [address] Phone [phone] Care Team Providers Care Bell Spinner Sousaphones Name Role Phone Renetta Loo DREW AUTM [phone] Gurdeep Pritchard PA-C AUTM [phone] Problems Active Problems Provider Date Arthralgia of [...] bedtime as needed for anxiety Unknown Biotin 30877kxx Tablets 1 by mouth every day Unknown [...] H/L Range Note Laboratory test finding 11/03/2019 [facility] [address] [place] [address] (315)- - Coronavirus 2019 Nasopharygeal This nucleic aci <SEE NOTE> 1 1 This nucleic acid amplificat ion test was developed and its performance characteristics determined by [employer]. Nucleic acid amplification tests include PCR and [...] this assay. Performed at: RN - [facility] [address] [id number] Medical Research Associate: Val Parmar MD, Phone: [phone] Not Detected Procedures Date Code Description Status 02/20/2020 48665 Therapeutic Procedure, Each 15 M inutes Completed 02/20/2020 55140 Therapeutic Procedure, Each 15 M inutes Completed 02/20/2020 76757 Electrical Stimulati on Manual, Each 15 Min, Constant Attendance Completed 02/20/2020 44092 Hot Or Cold Packs Completed 02/06/2020 56876 Therapeutic Procedure, Each 15 M inutes Completed 02/06/2020 29244 Therapeutic Procedure, Each 15 M inutes Completed 02/06/2020 24465 Electrical Stimulati on Manual, Each 15 Min, Constant Attendance Completed 02/06/2020 06075 Hot Or Cold Packs Completed 02/02/2020 01544 Hot Or Cold Packs Completed 02/02/2020 23050 Electrical Stimulati on Manual, Each 15 Min, Constant Attendance Completed 02/02/2020 47287 Therapeutic Procedure, Each 15 M inutes Completed 02/02/2020 48546 Therapeutic Procedure, Each 15 M inutes Completed 01/30/2020 71783 Therapeutic Procedure, Each 15 M inutes Completed 01/30/2020 08848 Therapeutic Procedure, Each 15 M inutes Completed 01/30/2020 66543 Therapeutic Procedure, Each 15 M inutes Completed 01/30/2020 32303 Electrical Stimulati on Manual, Each 15 Min, Constant Attendance Completed 01/30/2020 70992 Hot Or Cold Packs Completed 01/26/2020 36129 Hot Or Cold Packs Completed 01/26/2020 67563 Electrical Stimulati on Manual, Each 15 Min, Constant Attendance Completed 01/26/2020 23652 Therapeutic Procedure, Each 15 M inutes Completed 01/26/2020 12486 Therapeutic Procedure, Each 15 M inutes Completed 01/23/2020 62298 Therapeutic Procedure, Each 15 M inutes Completed 01/23/2020 75854 Therapeutic Procedure, Each 15 M inutes Completed 01/23/2020 09483 Electrical Stimulati on Manual, Each 15 Min, Constant Attendance Completed 01/23/2020 74568 Hot Or Cold Packs Completed 01/02/2020 62969 Manual Therapy Each 15 Minutes C ompleted 01/02/2020 69147 Therapeutic Procedure, Each 15 M inutes Completed 01/02/2020 57808 Electrical Stimulati on Manual, Each 15 Min, Constant Attendance Completed 01/02/2020 15613 Hot Or Cold Packs Completed 12/30/2019 73727 Manual Therapy Each 15 Minutes C ompleted 12/30/2019 10492 Therapeutic Procedure, Each 15 M inutes Completed 12/30/2019 54790 Electrical Stimulati on Manual, Each 15 Min, Constant Attendance Completed 12/30/2019 83246 Hot Or Cold Packs Completed 12/26/2019 68270 Hot Or Cold Packs Completed 12/26/2019 50953 Electrical Stimulati on Manual, Each 15 Min, Constant Attendance Completed 12/26/2019 49227 Therapeutic Procedure, Each 15 M inutes Completed 12/26/2019 53591 Manual Therapy Each 15 Minutes C ompleted 12/23/2019 87528 Manual Therapy Each 15 Minutes C ompleted 12/23/2019 35325 Therapeutic Procedure, Each 15 M inutes Completed 12/23/2019 65971 Electrical Stimulati on Manual, Each 15 Min, Constant Attendance Completed 12/23/2019 59003 Hot Or Cold Packs Completed 12/20/2019 48308 Hot Or Cold Packs Completed 12/20/2019 87742 Electrical Stimulati on Manual, Each 15 Min, Constant Attendance Completed 12/20/2019 27268 Therapeutic Procedure, Each 15 M inutes Completed 12/16/2019 19640 Therapeutic Procedure, Each 15 M inutes Completed 12/16/2019 98815 Electrical Stimulati on Manual, Each 15 Min, Constant Attendance Completed 12/16/2019 98968 Hot Or Cold Packs Completed 12/13/2019 97588 Therapeutic Procedure, Each 15 M inutes Completed 12/13/2019 89900 Electrical Stimulati on Manual, Each 15 Min, Constant Attendance Completed 12/13/2019 18391 Hot Or Cold Packs Completed 12/08/2019 06534 Hot Or Cold Packs Completed 12/08/2019 31502 Electrical Stimulati on Manual, Each 15 Min, Constant Attendance Completed 12/08/2019 44751 Therapeutic Procedure, Each 15 M inutes Completed 12/08/2019 46224 Therapeutic Procedure, Each 15 M inutes Completed 12/06/2019 40261 Therapeutic Procedure, Each 15 M inutes Completed 12/06/2019 75478 Therapeutic Procedure, Each 15 M inutes Completed 12/06/2019 97836 Electrical Stimulati on Manual, Each 15 Min, Constant Attendance Completed 12/06/2019 06421 Hot Or Cold Packs Completed 12/01/2019 21366 Therapeutic Procedure, Each 15 M inutes Completed 12/01/2019 58288 Hot Or Cold Packs Completed 11/29/2019 80438 Therapeutic Procedure, Each 15 M inutes Completed 11/29/2019 40516 Hot Or Cold Packs Completed 11/24/2019 77194 Physical Therapy Eval - Low Comp lexity Completed 11/08/2019 98159 Arthroscopy Shoulder Surgical Wi th Rotator Cuff Repair Completed 11/08/2019 43238 Arthroscopy Shoulder Remove Loose/Foreign Body Dist Claviculectom Completed 09/20/2019 44995 Inject/Drain Joint/Bursa Major C ompleted Medical Devices [...] right shoulder, subs Office Visit 09/20/2019 11:15a [facility]iel Rosas PA-C S46.011 D Strain of musc/tend [...] shoulder, subsequent encounter Leeroy Johnson, PT, DPT 02/02/2020 S46.011D Strain of muscle(s) and tendon(s) of the rotator cuff of right shoulder, subsequent encounter Isamar Win, MSPT 01/30/2020 S46.011D Strain of muscle(s) and tendon(s) of the rotator cuff of right shoulder, subsequent encounter Isamar M. Vespa, [facility] 01/26/2020 S46.011D Strain of muscle(s) and tendon(s) of the rotator cuff of right shoulder, subsequent encounter Isamar M. Vespa, [facility] 01/23/2020 S46.011D Strain of muscle(s) and tendon(s) of the rotator cuff of right shoulder, subsequent encounter Isamar M. Vespa, [facility] 01/05/2020 S46.011D Strain of muscle(s) and tendon(s) of the rotator cuff of right shoulder, subsequent encounter Max Barba MD 01/02/2020 S46.011D Strain of muscle(s) and tendon(s) of the rotator cuff of right shoulder, subsequent encounter Isamar M. Vespa, [facility] 12/30/2019 S46.011D Strain of muscle(s) and tendon(s) of the rotator cuff of right shoulder, subsequent encounter Isamar M. Vespa, [facility] 12/26/2019 S46.011D Strain of muscle(s) and tendon(s) of the rotator cuff of right shoulder, subsequent encounter Isamar M. Vespa, [facility] 12/23/2019 S46.011D Strain of muscle(s) and tendon(s) of the rotator cuff of right shoulder, subsequent encounter Isamar M. Vespa, [facility] 12/20/2019 S46.011D Strain of muscle(s) and tendon(s) of the rotator cuff of right shoulder, subsequent encounter Isamar M. Vespa, [facility] 12/16/2019 S46.011D Strain of muscle(s) and tendon(s) of the rotator cuff of right shoulder, subsequent encounter Isamar M. Vespa, [facility] 12/13/2019 S46.011D Strain of muscle(s) and tendon(s) of the rotator cuff of right shoulder, subsequent encounter Isamar M. Vespa, [facility] 12/08/2019 S46.011D Strain of muscle(s) and tendon(s) of the rotator cuff of right shoulder, subsequent encounter Isamar M. Vespa, [facility] 12/06/2019 S46.011D Strain of muscle(s) and tendon(s) [...] 10:45 am - Max Barba MD at [place] 02/14/2020 - Max Barba MD* S46.011D Strain [...] WRITTEN AUTH PASSED TO PT DEPT. Created [address] [place] [phone] Wei Barba MD PT- RT SHOULDER [facility] 3 MONTHS AFTER SURGERY. PASSED TO PT DEPT. Created [address] [place] [phone]
--- OUTSIDE RECORDS SUMMARY | 2020-03-05 15:19 | CCD | Continuity of Care Document ---
Author Author Christy WIN MSPT Organization Unknown Address [address] [place] [address], [facility] [address] [place] [address] Phone [phone] Care Team Providers Care Consultant Teacher Name Role Phone Cinda Renetta DREW AUTM [phone] Gurdeep Pritchard PA-C AUTM [phone] Problems Active Problems Provider Date Arthralgia of [...] bedtime as needed for anxiety Unknown Biotin [id number] Tablets 1 by mouth every day Unknown [...] H/L Range Note Laboratory test finding 11/03/2019 [facility] [address] [place] [address] ([phone] - Coronavirus 2019 Nasopharygeal This nucleic aci <SEE NOTE> 1 1 This nucleic acid amplificat ion test was developed and its performance characteristics determined by [employer]. Nucleic acid amplification tests include PCR and [...] this assay. Performed at: RN - [facility] [address] [id number] Vitamin Manager: Val Parmar MD, Phone: [phone] Not Detected Procedures Date Code Description Status 02/02/2020 93714 Therapeutic Procedure, Each 15 M inutes Completed 02/02/2020 07519 Therapeutic Procedure, Each 15 M inutes Completed 02/02/2020 73299 Electrical Stimulati on Manual, Each 15 Min, Constant Attendance Completed 02/02/2020 71430 Hot Or Cold Packs Completed 01/30/2020 19736 Therapeutic Procedure, Each 15 M inutes Completed 01/30/2020 59722 Therapeutic Procedure, Each 15 M inutes Completed 01/30/2020 73582 Therapeutic Procedure, Each 15 M inutes Completed 01/30/2020 11511 Electrical Stimulati on Manual, Each 15 Min, Constant Attendance Completed 01/30/2020 95026 Hot Or Cold Packs Completed 01/26/2020 17871 Therapeutic Procedure, Each 15 M inutes Completed 01/26/2020 26853 Therapeutic Procedure, Each 15 M inutes Completed 01/26/2020 12575 Electrical Stimulati on Manual, Each 15 Min, Constant Attendance Completed 01/26/2020 88012 Hot Or Cold Packs Completed 01/23/2020 67087 Hot Or Cold Packs Completed 01/23/2020 52601 Electrical Stimulati on Manual, Each 15 Min, Constant Attendance Completed 01/23/2020 99622 Therapeutic Procedure, Each 15 M inutes Completed 01/23/2020 23970 Therapeutic Procedure, Each 15 M inutes Completed 01/02/2020 04731 Manual Therapy Each 15 Minutes C ompleted 01/02/2020 82287 Therapeutic Procedure, Each 15 M inutes Completed 01/02/2020 76422 Electrical Stimulati on Manual, Each 15 Min, Constant Attendance Completed 01/02/2020 51298 Hot Or Cold Packs Completed 12/30/2019 50864 Manual Therapy Each 15 Minutes C ompleted 12/30/2019 15171 Therapeutic Procedure, Each 15 M inutes Completed 12/30/2019 87088 Electrical Stimulati on Manual, Each 15 Min, Constant Attendance Completed 12/30/2019 28297 Hot Or Cold Packs Completed 12/26/2019 59249 Manual Therapy Each 15 Minutes C ompleted 12/26/2019 22048 Therapeutic Procedure, Each 15 M inutes Completed 12/26/2019 87260 Electrical Stimulati on Manual, Each 15 Min, Constant Attendance Completed 12/26/2019 11994 Hot Or Cold Packs Completed 12/23/2019 83696 Hot Or Cold Packs Completed 12/23/2019 75467 Electrical Stimulati on Manual, Each 15 Min, Constant Attendance Completed 12/23/2019 40604 Therapeutic Procedure, Each 15 M inutes Completed 12/23/2019 92004 Manual Therapy Each 15 Minutes C ompleted 12/20/2019 23625 Therapeutic Procedure, Each 15 M inutes Completed 12/20/2019 13675 Electrical Stimulati on Manual, Each 15 Min, Constant Attendance Completed 12/20/2019 72216 Hot Or Cold Packs Completed 12/16/2019 12185 Therapeutic Procedure, Each 15 M inutes Completed 12/16/2019 16079 Electrical Stimulati on Manual, Each 15 Min, Constant Attendance Completed 12/16/2019 37002 Hot Or Cold Packs Completed 12/13/2019 27226 Therapeutic Procedure, Each 15 M inutes Completed 12/13/2019 00224 Electrical Stimulati on Manual, Each 15 Min, Constant Attendance Completed 12/13/2019 20910 Hot Or Cold Packs Completed 12/08/2019 89255 Hot Or Cold Packs Completed 12/08/2019 01334 Electrical Stimulati on Manual, Each 15 Min, Constant Attendance Completed 12/08/2019 07557 Therapeutic Procedure, Each 15 M inutes Completed 12/08/2019 10065 Therapeutic Procedure, Each 15 M inutes Completed 12/06/2019 01930 Therapeutic Procedure, Each 15 M inutes Completed 12/06/2019 01808 Therapeutic Procedure, Each 15 M inutes Completed 12/06/2019 67196 Electrical Stimulati on Manual, Each 15 Min, Constant Attendance Completed 12/06/2019 15368 Hot Or Cold Packs Completed 12/01/2019 07098 Therapeutic Procedure, Each 15 M inutes Completed 12/01/2019 62111 Hot Or Cold Packs Completed 11/29/2019 48782 Therapeutic Procedure, Each 15 M inutes Completed 11/29/2019 10525 Hot Or Cold Packs Completed 11/24/2019 68764 Physical Therapy Eval - Low Comp lexity Completed 11/08/2019 07720 Arthroscopy Shoulder Surgical Wi th Rotator Cuff Repair Completed 11/08/2019 71045 Arthroscopy Shoulder Remove Loose/Foreign Body Dist Claviculectom Completed 09/20/2019 73045 Inject/Drain Joint/Bursa Major C ompleted Medical Devices Description No Information Available Encounters Type Date Location Provider Dx Diagnosis Office Visit 01/05/2020 1:00p Penny Barba MD S4 6.011D Strain of musc/tend the rotator cuff of right shoulder, subs Office Visit 11/16/2019 10:00a Penny Barba MD S4 6.011D Strain of musc/tend the rotator cuff of right shoulder, subs Office Visit 09/20/2019 11:[facility] [facility] S46.011 D Strain of musc/tend the rotator cuff of right shoulder, subs Assessments Date Code Description Provider 02/02/2020 S46.011D Strain of muscle(s) and tendon(s) of the rotator cuff of right shoulder, subsequent encounter Isamar Win, [facility] 01/30/2020 S46.011D Strain of muscle(s) and tendon(s) of the rotator cuff of right shoulder, subsequent encounter Isamar Win, [facility] 01/26/2020 S46.011D Strain of muscle(s) and tendon(s) of the rotator cuff of right shoulder, subsequent encounter Isamar Win, [facility] 01/23/2020 S46.011D Strain of muscle(s) and tendon(s) of the rotator cuff of right shoulder, subsequent encounter Isamar Win, [facility] 01/05/2020 S46.011D Strain of muscle(s) and tendon(s) of the rotator cuff of right shoulder, subsequent encounter Max Barba MD 01/02/2020 S46.011D Strain of muscle(s) and tendon(s) of the rotator cuff of right shoulder, subsequent encounter Isamar Win, [facility] 12/30/2019 S46.011D Strain of muscle(s) and tendon(s) of the rotator cuff of right shoulder, subsequent encounter Isamar Win, [facility] 12/26/2019 S46.011D Strain of muscle(s) and tendon(s) of the rotator cuff of right shoulder, subsequent encounter Isamar Win, [facility] 12/23/2019 S46.011D Strain of muscle(s) and tendon(s) of the rotator cuff of right shoulder, subsequent encounter [facility], [facility] 12/20/2019 S46.011D Strain of muscle(s) and tendon(s) of the rotator cuff of right shoulder, subsequent encounter Isamar Win, [facility] 12/16/2019 S46.011D Strain of muscle(s) and tendon(s) of the rotator cuff of right shoulder, subsequent encounter Isamar Win, [facility] 12/13/2019 S46.011D Strain of muscle(s) and tendon(s) of the rotator cuff of right shoulder, subsequent encounter [facility] Win, [facility] 12/08/2019 S46.011D Strain of muscle(s) and tendon(s) of the rotator cuff of right shoulder, subsequent encounter Isamar Win, [facility] 12/06/2019 S46.011D Strain of muscle(s) and tendon(s) of the rotator cuff of right shoulder, subsequent encounter Isamar Win, [facility] 12/01/2019 S46.011D Strain of muscle(s) and tendon(s) of the rotator cuff of right shoulder, subsequent encounter Isamar Win, [facility] 11/29/2019 S46.011D Strain of muscle(s) and tendon(s) of the rotator cuff of right shoulder, subsequent encounter Isamar Win, [facility] 11/24/2019 S46.011D Strain of muscle(s) and [...] 9:45 am - Max Barba MD at [place] 01/05/2020 - Max Barba MD* S46.011D Strain [...] WRITTEN AUTH PASSED TO PT DEPT. Created [address] [place] [phone] Wei Barba MD PT- RT SHOULDER OK TO [facility] 3 MONTHS AFTER SURGERY. PASSED TO PT DEPT. LS Created [address] [place] [phone]
--- OUTSIDE RECORDS SUMMARY | 2020-03-05 15:20 | CCD ---
Author Author [facility] Organization [facility] Address Unknown Phone Unavailable Care Team Providers Care Planting Supervisor Name Role Phone Yulia Allred Unavailable PROBLEMS Type Condition ICD9-CM Code [id number] Code Onset Dates Condition S tatus SNOMED Code Notes Problem Obesity E66.9 Active 391083615 Problem GERD (gastroesophageal reflux disease) K21.9 A ctive 954091926 Problem Biceps tendinitis on right M75.21 Active 44071 6007 Problem Lumbar back pain M54.5 Active 243539482 Problem S/P gastric bypass Z98.84 Active 022015742 Problem History of venous thrombosis and embolism Z86.718 Active 988758148 Problem Depression, unspecified depression type F32.9 Active 83592882 Problem Insomnia, unspecified type G47.00 Active 90481 2000 Problem Abnormal mammogram R92.8 Active 077297844 Problem Tear of meniscus of right kn ee as current injury, unspecified meniscus, unspecified tear type, initial encounter S83.206A Active 900013410 Problem Low vitamin D level E55.9 Active 431602536 Problem Conductive hearing loss, unspecified laterality H9 0.2 Active 04816993 Problem Vitamin D insufficiency E55.9 Active 39599801 4 Problem Facial droop R29.810 Active 58122144 Problem Situational depression F43.21 Active 84603288 Problem Post concussion syndrome F07.81 Active 1963073 4 Problem Bipolar disorder, unspecified F31.9 Active 13 186301 ALLERGIES No Known Allergies ENCOUNTERS from 1959 to 2020-01-26 Encounter Location Date Provider Diagnosis [facility] [place] [address] [place] [address] 0 7 Jan, 2020 Yulia Chalino Onychomycosis B35.1 and Neoplasm of unce rtain behavior, unspecified D48.9 IMMUNIZATIONS Vaccine Route Administration Date Status Zoster 50mcg/0.5mL (Shingrix) IM Intramuscular Feb 25, 2019 A dministered Pneumococcal Adult 0.5mL (Pneumovax 23) IM Intramuscular Feb 25, 2019 Administered Influenza (6mo & up) Fluzone IM Intramuscular May 28, 2018 Ad ministered Influenza (6mo & up) Fluzone IM Intramuscular Nov 20, 2016 Ad ministered Influenza (6mo & up) Fluzone IM Intramuscular June 10, 2016 Ad ministered Influenza (6mo & up) Fluzone IM Intramuscular Nov 20, 2014 Ad ministered Influenza (6mo & up) Fluzone IM Intramuscular Jan 30, 2014 Ad ministered Influenza (6mo & up) Fluzone IM Intramuscular Dec 08, 2012 Ad ministered SOCIAL HISTORY Tobacco Use: Social History Observation Description Date Details (start date - stop date) Never Smoker Sex Assigned At : Social History Observation Description Sex Assigned At Unknown Education: Question Answer Notes Level of Education: [employer] Question Answer Notes Interpretation: Alcohol Education Total Score: 1 Language: Question Answer Notes Languages spoken: Swiss Lutheran: Question Answer Notes Lutheran 21 Anglican Domestic Violence: Question Answer Notes Status: Single Sexual Hx: Question Answer Notes Had sex in the last 12 months (vaginal, oral, or anal)? Yes LMP: menopause Have you ever had an STD? No with Men only Use protection? Yes How often? All of the time Drug and Alcohol Question Answer Notes Interpretation: No problems reported Total Score: 0 Alcohol Screening: Question Answer Notes Did you have a drink containing alcohol in the past year? Ye s Points 1 Interpretation Negative How often did you have six or more drinks on one occas ion in the past year? Never (0 points) How many drinks did you have on a typica l day when you were drinking in the past year? 1 or 2 (0 points) How often did you have a drink containing alcohol in t he past year? Monthly or less (1 point) BMI Care Goal Follow-Up Question Answer Notes Above Normal BMI Follow-Up Lifestyle education regarding t Tobacco Use: Question Answer Notes Are you a: never smoker REASON FOR REFERRAL No Information VITAL SIGNS Weight 163.0 lbs 07 Jan, 2020 Height 63.25 in Jan, BMI 28.64 kg/m2 Jan, Blood pressure systolic 126 mm Hg Jan, Blood pressure diastolic 76 mm Hg Jan, MEDICATIONS Medication SIG (Take, Route, Frequency, Duration) Notes Start Da te End Date Status Vitamin D 1000 UNIT 1 tablet Orally Once a day for 30 day(s) Feb, Active Diflucan 200 MG 1 tablet Orally Once a week for 30 Days Jan, Active PROzac 20 MG 1 capsule Orally Once a day Active Zoloft 25 MG 1 tablet Orally Once a day for 30 day(s) Not-Taking Centrum 1 2 tablets Orally once daily Active Terbinafine HCl 1 % 1 application Externally to toes Twice a day for 30 days Dec, Not-Taking Xarelto 20 MG 1 tablet with food Orally Once a day for 30 days Not-Taking Xarelto 20 MG 1 tablet with food Orally Once a day for 30 days Active Abilify 2 mg- 1 tablet Orally Once a day (Littel) for 30 day(s) Active Vitamin B12 500 MCG 1 tab(s) Orally Once a day Active Biotin 96216 MCG 1 tablet Orally Once a day Active Acetic Acid 2 % 5 drops into affected ear Otic Three mike es a day for 10 day(s) Aug, Not-Taking Adderall XR 20 MG 1 capsule in the morning Orally Once a day Active Calcium Citrate Chewy Bite 500-500 MG-UNIT 1 tab(s) Orally twice daily May, Active Restasis 0.05 % 1 into affected eye Ophthalmic prn Active Klonopin 1 mg 1 tablet Orally three times dailyas needed MDD: 3 Active PROCEDURES No Information RESULTS No Results REASON FOR VISIT SPOT ON LEFT LEG, DR BOLTON PT MEDICAL (GENERAL) HISTORY Type Description Date Medical History DVT Recurrent 1980, twice in the , 2000, 2006 Medical History bipolar 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 Medical History ECHO (04/2014): grade 1 LV di astolic dysfunction, mild aortic valve sclerosis, mild aortic regurg Medical History osteoarthritis Medical History Basal cell cancer face, bilateral legs Medical History Basal Cell Carcinoma on both legs Surgical History cholecystectomy Surgical History right foot bunionectomy, 2nd toe shortened , Tailors bunion and heel spur 02/06/01 Surgical History left foot bunionectomy, 2nd toe shortene d, Tailors bunion 04/2001 Surgical History colonoscopy (negative) 11/2005 Surgical History jairo filter-Vena Cava 05/27/06 Surgical History carpal tunnel-Right hand 08/20 Surgical History thumb trigger -left side Surgical History left foot heel spur removed 2003 Surgical History left hand carpal tunnel and trigger omayra 2005 Surgical History Right hand middle and ring finger trigge r fingers 2007 Surgical History Right hand middle and ring finger trigge r fingers again 12/2008 Surgical History Right foot, redid bunion, re moved screws from right side of foot, Dr. Thomas 06/03/2013 Surgical History right lower leg skin Bx-cancerous Surgical History left lower leg skin Bx-cancerous 04/2014 Surgical History Bianca en Y gastric bypass 04/2015 Surgical History R cataract 10/10/2015 Surgical History L cataract 10/29/2015 Surgical History L basal joint arthoplasty and ganglion c yst- Dr. Celeste 11/2015 Surgical History R knee meniscus surgery 09/2018 Surgical History right shoulder surgery 10/2019 Hospitalization History [facility], [facility] and substance induc ed mood disorder (prescribed Adderall) 12/2013 Hospitalization History [facility] Hospitalization History [facility] [place] Hospitalization History cellulitis 08/2012 Goals Section No Information Health Concerns No Information MEDICAL EQUIPMENT No Information MENTAL STATUS No Information FUNCTIONAL STATUS No Information ASSESSMENTS Encounter Date Diagnosis Assessment Notes Treatment Notes Treatm ent Clinical Notes Jan, Onychomycosis (ICD-10 - B35.1) Jan, Neoplasm of uncertain behavior, unspecified (ICD -10 - D48.9) Procedure: Tangential Biopsy Allen protocol was followed in compliance with [facility] standards. The patient was educated on the potential risks and benefits of the procedure and gave his/her informed consent. Location of biopsy noted in the physical exam and images uploaded to the medical record. Area(s) treated with EtOH. Local anesthesia performed with <1mL of 1% lidocaine with epinephrine per site. Site(s) verified with patient via timeout utilizing patient name and date of . Biopsy/Biopsies performed. Dual site-specimen cup verification performed verbally between provider and clinic staff. Hemostasis achieved with hyfrecation or aluminum chloride/styptic. Closure: secondary intent. Petrolatum and bandage applied. Wound care instruction addressed with patient by provider or clinic staff and wound care handout given. Patient tolerated the procedure well and left in stable condition. Patient reports that his/her pain was well-managed. There was no noted significant d ifference from baseline pain score after procedure. Patient was educated to use acetaminophen 500mg up to 4 times daily. If not sufficient, patient was educated to re-present to the dermatology clinic or, if after hours, the emergency department. Patient was informed they would be notified in 10-14 days by telephone for all malignant conditions and scheduled for definitive management. Left lower leg PLAN OF TREATMENT Medication Medication Name Sig Start Date Stop Date Diflucan 200 MG 1 tablet Orally Once a week for 30 Days Jan, Treatment Notes Assessment Notes Clinical Notes Neoplasm of uncertain behavior, unspecified Procedure: Tangential Biopsy Allen protocol was followed in compliance with [facility] standards. The patient was educated on the potential risks and benefits of the procedure and gave his/her informed consent. Location of biopsy noted in the physical exam and images uploaded to the medical record. Area(s) treated with EtOH. Local anesthesia performed with <1mL of 1% lidocaine with epinephrine per site. Site(s) verified with patient via timeout utilizing patient name and date of . Biopsy/Biopsies performed. Dual site-specimen cup verification performed verbally between provider and clinic staff. Hemostasis achieved with hyfrecation or aluminum chloride/styptic. Closure: secondary intent. Petrolatum and bandage applied. Wound care instruction addressed with patient by provider or clinic staff and wound care handout given. Patient tolerated the procedure well and left in stable condition. Patient reports that his/her pain was well- managed. There was no noted significant difference from baseline pain score after procedure. Patient was educated to use acetaminophen 500mg up to 4 times daily. If not sufficient, patient was educated to re-present to the dermatology clinic or, if after hours, the emergency department. Patient was informed they would be notified in 10-14 days by telephone for all malignant conditions and scheduled for definitive management.Left lower leg Treatment Notes Test Name Order Date FUNGUS SM & CULT HAIR NAIL SKI 2020-01-26 Next Appt Details 3 months Reason:F/U nails Provider Name:Yulia Allred, 2020-04-23 02:15:00 PM, [address] [place], [address], Provider Name:Adrian Bolton, 09-14 03:30:00 PM, [address] [facility], [address], [place], [address], Follow Up:3 monthsF/U nails Insurance Providers Payer Name Payer Address Payer Phone Insured Name Patient Relati onship to Insured Coverage Start Date Coverage End Date MEDICAID [employer] [address] [facility] [id number] [employer] SHAFER self MEDICARE COMPLETE [facility] [address] [address] [facility] [id number] [employer]AN[employer] SHAFER self
--- OUTSIDE RECORDS SUMMARY | 2020-03-05 15:20 | CCD ---
Author Author [facility] Organization [facility] Address Unknown Phone Unavailable Care Team Providers Care Concrete Pointer Name Role Phone Tavia Falcon Unavailable PROBLEMS Type Condition ICD9-CM Code PCY40-RE Code Onset Dates Condition S tatus SNOMED Code Notes Problem Obesity E66.9 Active 784406188 Problem GERD (gastroesophageal reflux disease) K21.9 A ctive 363521965 Problem Biceps tendinitis on right M75.21 Active 54393 6007 Problem Lumbar back pain M54.5 Active 000188772 Problem S/P gastric bypass Z98.84 Active 419258821 Problem History of venous thrombosis and embolism Z86.718 Active 847446771 Problem Depression, unspecified depression type F32.9 Active 86859450 Problem Insomnia, unspecified type G47.00 Active 00826 2000 Problem Abnormal mammogram R92.8 Active 042411940 Problem Tear of meniscus of right kn ee as current injury, unspecified meniscus, unspecified tear type, initial encounter S83.206A Active 581898010 Problem Low vitamin D level E55.9 Active 924194771 Problem Conductive hearing loss, unspecified laterality H9 0.2 Active 07501757 Problem Vitamin D insufficiency E55.9 Active 07697673 4 Problem Facial droop R29.810 Active 79183241 Problem Situational depression F43.21 Active 14914332 Problem Post concussion syndrome F07.81 Active 7164362 4 Problem Bipolar disorder, unspecified F31.9 Active 13 627014 ALLERGIES No Known Allergies ENCOUNTERS from 1960 to 2020-01-19 Encounter Location Date Provider Diagnosis [address] [address] Dec, Tavia Falcon Presbycusis of both ears H91.13 IMMUNIZATIONS Vaccine Route Administration Date Status Zoster [...] Education: Question Answer Notes Level of Education: College trade school Audit Question Answer Notes Total Score: 1 Interpretation: Alcohol Education Language: Question Answer Notes Languages spoken: Arabic Cheondoism: Question Answer Notes Cheondoism 21 Evangelical Domestic Violence: Question Answer Notes Status: Single Sexual Hx: Question Answer Notes Had sex in the last 12 months (vaginal, oral, or anal)? Yes LMP: menopause Have you ever had an STD? No with Men only Use protection? Yes How often? All of the time Drug and Alcohol Question Answer Notes Total Score: 0 Interpretation: No problems reported Alcohol Screening: Question Answer Notes Did you [...] REASON FOR REFERRAL No Information VITAL SIGNS No information MEDICATIONS Medication SIG (Take, Route, Frequency, Duration) Notes Start Da te End Date Status Klonopin 1 mg 1 tablet Orally three times dailyas needed MDD: 3 Active Vitamin B12 500 MCG 1 tab(s) Orally Once a day Active Adderall XR 20 MG 1 capsule in the morning Orally Once a day Active Biotin 5000 MCG 1 tablet Orally Once a day Active Abilify 2 mg- 1 tablet Orally Once a day (Littel) for 30 day(s) Active PROzac 20 MG 1 capsule Orally Once a day Active Centrum 1 2 tablets Orally once daily Active Zoloft 25 MG 1 tablet Orally Once a day for 30 day(s) Not-Taking Acetic Acid 2 % 5 drops into affected ear Otic Three mike es a day for 10 day(s) Aug, Active Calcium Citrate Chewy Bite 500-500 MG-UNIT 1 tab(s) Orally twice daily May, Active Restasis 0.05 % 1 into affected eye Ophthalmic prn Active Terbinafine HCl 1 % 1 application Externally to toes Twice a day for 30 days Dec, Not-Taking Xarelto 20 MG 1 tablet with food Orally Once a day for 30 days Active Xarelto 20 MG 1 tablet with food Orally Once a day for 30 days Active Vitamin D 1000 UNIT 1 tablet Orally Once a day for 30 day(s) Feb, Active PROCEDURES No Information RESULTS No Results REASON FOR VISIT Referral MEDICAL (GENERAL) HISTORY Type Description Date Medical History DVT Recurrent 1980, twice in the , 2000, 2006 Medical History bipolar 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 Medical History [...] left hand carpal tunnel and trigger omayra miranda 2005 Surgical History Right hand middle and [...] Surgical History R knee meniscus surgery 09/2018 Hospitalization History [facility], SI and substance induc ed mood disorder (prescribed Adderall) 12/2013 [facility]ization History [facility] [place] [place] Hospitalization History cellulitis 08/2012 Goals Section No Information Health Concerns No Information MEDICAL EQUIPMENT No Information MENTAL STATUS No Information FUNCTIONAL STATUS No Information ASSESSMENTS Encounter Date Diagnosis Assessment Notes Treatment Notes Treatm ent Clinical Notes Dec, Presbycusis of both ears (ICD-10 - H91.13) PLAN OF TREATMENT Medication Medication Name Sig Start Date Stop Date PROzac 20 MG 1 capsule Orally Once a day Xarelto 20 MG 1 tablet with food Orally Once a day for 30 days Xarelto 20 MG 1 tablet with food Orally Once a day for 30 days Abilify 2 mg- 1 tablet Orally Once a day (Littel) for 30 day(s ) Next Appt Details Provider Name:Lula Benítez, 2020-01-20 11:00:00 AM, [address] [place] [address], [phone], Provider Name:Yulia Allred, 2020-01-23 09:00:00 AM, [address] [place] [address], [id number], Provider Name:Adrian Barbosa, 08-09 02:30:00 PM, [address] [facility], [address] [place] [address], [phone], Insurance Providers Payer Name Payer Address Payer Phone Insured Name Patient Relati onship to Insured Coverage Start Date Coverage End Date MEDICAID [email or web address] [address] [facility] [id number] HANNAH SHAFER self MEDICARE COMPLETE UNITED HEALTHCARE [address] [address] [facility] [address] HANNAH SHAFER self
--- OUTSIDE RECORDS SUMMARY | 2020-03-05 15:20 | CCD | Continuity of Care Document ---
Author Author Christy WIN [facility] Organization Unknown Address [address] [place] [address], [facility] [address] [place] [address] Phone [phone] Care Team Providers Care Employment Coach Name Role Phone Cinda Renetta DREW AUTM [phone] Gurdeep Pritchard PA-C AUTM [phone] Problems Active Problems Provider Date Arthralgia of [...] bedtime as needed for anxiety Unknown Biotin 52849tfg Tablets 1 by mouth every day Unknown [...] H/L Range Note Laboratory test finding 11/03/2019 [facility] [address] [place] [address] (315)- - Coronavirus 2019 Nasopharygeal This nucleic aci <SEE NOTE> 1 1 This nucleic acid amplificat ion test was developed and its performance characteristics determined by [employer]. Nucleic acid amplification tests include PCR and [...] this assay. Performed at: RN - [facility] [address] [id number] [employer] Superintendent: Val Parmar MD, Phone: [phone] Not Detected Procedures Date Code Description Status 01/26/2020 85868 Therapeutic Procedure, Each 15 M inutes Completed 01/26/2020 67081 Therapeutic Procedure, Each 15 M inutes Completed 01/26/2020 47360 Electrical Stimulati on Manual, Each 15 Min, Constant Attendance Completed 01/26/2020 28969 Hot Or Cold Packs Completed 01/23/2020 48425 Therapeutic Procedure, Each 15 M inutes Completed 01/23/2020 99755 Therapeutic Procedure, Each 15 M inutes Completed 01/23/2020 00126 Electrical Stimulati on Manual, Each 15 Min, Constant Attendance Completed 01/23/2020 79312 Hot Or Cold Packs Completed 01/02/2020 72715 Manual Therapy Each 15 Minutes C ompleted 01/02/2020 22252 Therapeutic Procedure, Each 15 M inutes Completed 01/02/2020 70115 Electrical Stimulati on Manual, Each 15 Min, Constant Attendance Completed 01/02/2020 40082 Hot Or Cold Packs Completed 12/30/2019 80826 Hot Or Cold Packs Completed 12/30/2019 31894 Electrical Stimulati on Manual, Each 15 Min, Constant Attendance Completed 12/30/2019 77009 Therapeutic Procedure, Each 15 M inutes Completed 12/30/2019 80630 Manual Therapy Each 15 Minutes C ompleted 12/26/2019 30319 Manual Therapy Each 15 Minutes C ompleted 12/26/2019 92261 Therapeutic Procedure, Each 15 M inutes Completed 12/26/2019 12732 Electrical Stimulati on Manual, Each 15 Min, Constant Attendance Completed 12/26/2019 41457 Hot Or Cold Packs Completed 12/23/2019 37105 Manual Therapy Each 15 Minutes C ompleted 12/23/2019 00978 Therapeutic Procedure, Each 15 M inutes Completed 12/23/2019 84719 Electrical Stimulati on Manual, Each 15 Min, Constant Attendance Completed 12/23/2019 73736 Hot Or Cold Packs Completed 12/20/2019 68042 Hot Or Cold Packs Completed 12/20/2019 90109 Electrical Stimulati on Manual, Each 15 Min, Constant Attendance Completed 12/20/2019 90430 Therapeutic Procedure, Each 15 M inutes Completed 12/16/2019 63317 Therapeutic Procedure, Each 15 M inutes Completed 12/16/2019 87603 Electrical Stimulati on Manual, Each 15 Min, Constant Attendance Completed 12/16/2019 84158 Hot Or Cold Packs Completed 12/13/2019 37057 Therapeutic Procedure, Each 15 M inutes Completed 12/13/2019 45409 Electrical Stimulati on Manual, Each 15 Min, Constant Attendance Completed 12/13/2019 38422 Hot Or Cold Packs Completed 12/08/2019 36187 Therapeutic Procedure, Each 15 M inutes Completed 12/08/2019 68852 Therapeutic Procedure, Each 15 M inutes Completed 12/08/2019 15858 Electrical Stimulati on Manual, Each 15 Min, Constant Attendance Completed 12/08/2019 88685 Hot Or Cold Packs Completed 12/06/2019 10189 Hot Or Cold Packs Completed 12/06/2019 04695 Electrical Stimulati on Manual, Each 15 Min, Constant Attendance Completed 12/06/2019 54639 Therapeutic Procedure, Each 15 M inutes Completed 12/06/2019 08147 Therapeutic Procedure, Each 15 M inutes Completed 12/01/2019 58963 Therapeutic Procedure, Each 15 M inutes Completed 12/01/2019 54732 Hot Or Cold Packs Completed 11/29/2019 02226 Therapeutic Procedure, Each 15 M inutes Completed 11/29/2019 39671 Hot Or Cold Packs Completed 11/24/2019 53660 Physical Therapy Eval - Low Comp lexity Completed 11/08/2019 58238 Arthroscopy Shoulder Surgical Wi th Rotator Cuff Repair Completed 11/08/2019 43387 Arthroscopy Shoulder Remove Loose/Foreign Body Dist Claviculectom Completed 09/20/2019 43701 Inject/Drain Joint/Bursa Major C ompleted Medical Devices [...] shoulder, subs Assessments Date Code Description Provider 01/26/2020 S46.011D Strain of muscle(s) and tendon(s) of the rotator cuff of right shoulder, subsequent encounter Isamar Win, [facility] 01/23/2020 S46.011D Strain of muscle(s) and tendon(s) of the rotator cuff of right shoulder, subsequent encounter Isamar Win, [facility] 01/05/2020 S46.011D Strain of muscle(s) and tendon(s) of the rotator cuff of right shoulder, subsequent encounter Max Barba MD 01/02/2020 S46.011D Strain of muscle(s) and tendon(s) of the rotator cuff of right shoulder, subsequent encounter Isamar Win, [facility] 12/30/2019 S46.011D Strain of muscle(s) and tendon(s) of the rotator cuff of right shoulder, subsequent encounter Isamar Win, [facility] 12/26/2019 S46.011D Strain of muscle(s) and tendon(s) of the rotator cuff of right shoulder, subsequent encounter Isamar Win, [facility] 12/23/2019 S46.011D Strain of muscle(s) and tendon(s) of the rotator cuff of right shoulder, subsequent encounter Isaamr MMaida Win, [facility] 12/20/2019 S46.011D Strain of muscle(s) and tendon(s) of the rotator cuff of right shoulder, subsequent encounter Isamar MMaida Win, [facility] 12/16/2019 S46.011D Strain of muscle(s) and tendon(s) of the rotator cuff of right shoulder, subsequent encounter Isamar M. Vespa, [facility] 12/13/2019 S46.011D Strain of muscle(s) and tendon(s) of the rotator cuff of right shoulder, subsequent encounter Isamar M. Vespa, [facility] 12/08/2019 S46.011D Strain of muscle(s) and tendon(s) of the rotator cuff of right shoulder, subsequent encounter Isamar M. Vespa, [facility] 12/06/2019 S46.011D Strain of muscle(s) and tendon(s) of the rotator cuff of right shoulder, subsequent encounter Isamar MMaida Win, [facility] 12/01/2019 S46.011D Strain of muscle(s) [...] Rosas PA-C Plan of Treatment Future Appointment(s):* 02/02/2020 3:00 pm - RUB[facility] Conde at [facility] * 01/30/2020 10:30 am - RUBINA Conde at [facility] * 02/13/2020 9:45 am - Max Barba MD at [place] 01/05/2020 - Max Barba MD* S46.011D Strain of muscle(s) and tendon(s) of the rotator cuff of right shoulder, subsequent encounter* Follow up:* in 6 weeks with DPV for right shoulder recheck please. Functional Status Description No Information Available Mental Status Description No Information Available Referrals Refer to Reason for Referral Status Appt Date Wei Barba MD PT- RT SHOULDER OK TO [facility] 3 MONTHS AFTER SURGERY. PASSED TO PT DEPT. LS Created [address] [facility], [address] [place] [address] [phone]
--- OUTSIDE RECORDS SUMMARY | 2020-03-05 15:20 | CCD ---
Author Author [facility] Organization [facility] Address Unknown Phone Unavailable Care Team Providers Care Bagel Maker Name Role Phone Lula Benítez Unavailable PROBLEMS Type Condition ICD9-CM Code BFD41-TN Code Onset Dates Condition S tatus SNOMED Code Notes Problem Obesity E66.9 Active 183470832 Problem GERD (gastroesophageal reflux disease) K21.9 A ctive 827070566 Problem Biceps tendinitis on right M75.21 Active 80909 6007 Problem Lumbar back pain M54.5 Active 100015919 Problem S/P gastric bypass Z98.84 Active 330980546 Problem History of venous thrombosis and embolism Z86.718 Active 660449089 Problem Depression, unspecified depression type F32.9 Active 72779100 Problem Insomnia, unspecified type G47.00 Active 95644 2000 Problem Abnormal mammogram R92.8 Active 005916797 Problem Tear of meniscus of right kn ee as current injury, unspecified meniscus, unspecified tear type, initial encounter S83.206A Active 360405186 Problem Low vitamin D level E55.9 Active 159940115 Problem Conductive hearing loss, unspecified laterality H9 0.2 Active 33884153 Problem Vitamin D insufficiency E55.9 Active 46159687 4 Problem Facial droop R29.810 Active 39258474 Problem Situational depression F43.21 Active 84009596 Problem Post concussion syndrome F07.81 Active 6847908 4 Problem Bipolar disorder, unspecified F31.9 Active 13 389998 ALLERGIES No Known Allergies ENCOUNTERS from 1960 to 2020-01-23 Encounter Location Date Provider Diagnosis [facility] [address] [place] [address] Jan, Lula Jackelin Routine gynecologica l examination Z01.419 IMMUNIZATIONS Vaccine Route Administration Date Status Zoster [...] Education Language: Question Answer Notes Languages spoken: Persian Synagogue: Question Answer Notes Synagogue 21 Evangelical Domestic Violence: Question Answer Notes [...] FOR REFERRAL No Information VITAL SIGNS Weight 166 lbs Jan, Weight-kg 75.3 kg Jan, Height 63.25 in Jan, BMI 29.17 kg/m2 Jan, Blood pressure systolic 120 mm Hg Jan, Blood pressure diastolic 78 mm Hg Jan, MEDICATIONS Medication SIG (Take, [...] tab(s) Orally Once a day Active Biotin 04894 MCG 1 tablet Orally Once a day [...] MDD: 3 Active PROCEDURES No Information RESULTS Component Value Reference Range [facility] [place] Screening Bilateral (Ultrasoun d if Indicated) (3D Mammo) Reviewed date:01/23/2020 13:08:14 Interpretation: Performing Lab:[facility], [place] [address] REASON FOR VISIT ANNUAL/MAMMO MEDICAL (GENERAL) HISTORY Type Description Date Medical History DVT Recurrent 1980, twice in the , 2000, 2006 Medical History bipolar 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 419) PLAN OF TREATMENT Medication Medication Name Sig Start Date Stop Date Diflucan 200 MG 1 tablet Orally Once a week for 30 Days Jan, Treatment Notes Test Name Order Date PAP REQUEST FOR SERVICE 2020-01-23 Next Appt Details 1 Year Reason:Mammo Provider Name:Yulia Allred, 2020-04-23 02:15:00 PM, [address] [place], [address], Provider Name:Adrian Barbosa, 08-09 02:30:00 PM, [address] [facility], [address] Floor, [place], [address], Follow Up:1 YearMammo Insurance Providers Payer Name Payer Address Payer Phone Insured Name Patient Relati onship to Insured Coverage Start Date Coverage End Date MEDICAID [employer] [address] [facility] [id number] HANNAH SHAFER MEDICARE COMPLETE UNITED HEALTHCARE [address] [address] [facility] [id number] HANNAH SHAFER self
--- OUTSIDE RECORDS SUMMARY | 2020-03-05 15:20 | CCD | Continuity of Care Document ---
Author Author Christy WIN MSPT Organization Unknown Address [address] [place] [address], [facility] [address] [place] [address] Phone [phone] Care Team Providers Care Retail Worker Name Role Phone Cinda Renetta DREW AUTM [phone] Gurdeep Pritchard PA-C AUTM [phone] Problems Active Problems Provider Date Arthralgia of [...] bedtime as needed for anxiety Unknown Biotin 89270nyn Tablets 1 by mouth every day Unknown [...] H/L Range Note Laboratory test finding 11/03/2019 [facility] [address] [place] [address] (315)- - Coronavirus 2019 Nasopharygeal This nucleic aci <SEE NOTE> 1 1 This nucleic acid amplificat ion test was developed and its performance characteristics determined by [employer]. Nucleic acid amplification tests include PCR and [...] assay. Performed at: RN - [facility] [address] [id number] Clinical Study Manager: Val Parmar MD, Phone: [phone] Not Detected Procedures Date Code Description Status 01/26/2020 87742 Therapeutic Procedure, Each 15 M inutes Completed 01/26/2020 25274 Therapeutic Procedure, Each 15 M inutes Completed 01/26/2020 45630 Electrical Stimulati on Manual, Each 15 Min, Constant Attendance Completed 01/26/2020 85876 Hot Or Cold Packs Completed 01/23/2020 46241 Therapeutic Procedure, Each 15 M inutes Completed 01/23/2020 57401 Therapeutic Procedure, Each 15 M inutes Completed 01/23/2020 23236 Electrical Stimulati on Manual, Each 15 Min, Constant Attendance Completed 01/23/2020 85203 Hot Or Cold Packs Completed 01/02/2020 25291 Manual Therapy Each 15 Minutes C ompleted 01/02/2020 67143 Therapeutic Procedure, Each 15 M inutes Completed 01/02/2020 61022 Electrical Stimulati on Manual, Each 15 Min, Constant Attendance Completed 01/02/2020 91651 Hot Or Cold Packs Completed 12/30/2019 49423 Hot Or Cold Packs Completed 12/30/2019 92330 Electrical Stimulati on Manual, Each 15 Min, Constant Attendance Completed 12/30/2019 35365 Therapeutic Procedure, Each 15 M inutes Completed 12/30/2019 45586 Manual Therapy Each 15 Minutes C ompleted 12/26/2019 57053 Manual Therapy Each 15 Minutes C ompleted 12/26/2019 84827 Therapeutic Procedure, Each 15 M inutes Completed 12/26/2019 28431 Electrical Stimulati on Manual, Each 15 Min, Constant Attendance Completed 12/26/2019 33026 Hot Or Cold Packs Completed 12/23/2019 21172 Manual Therapy Each 15 Minutes C ompleted 12/23/2019 00088 Therapeutic Procedure, Each 15 M inutes Completed 12/23/2019 54818 Electrical Stimulati on Manual, Each 15 Min, Constant Attendance Completed 12/23/2019 52801 Hot Or Cold Packs Completed 12/20/2019 66812 Hot Or Cold Packs Completed 12/20/2019 83729 Electrical Stimulati on Manual, Each 15 Min, Constant Attendance Completed 12/20/2019 55775 Therapeutic Procedure, Each 15 M inutes Completed 12/16/2019 43351 Therapeutic Procedure, Each 15 M inutes Completed 12/16/2019 68291 Electrical Stimulati on Manual, Each 15 Min, Constant Attendance Completed 12/16/2019 49906 Hot Or Cold Packs Completed 12/13/2019 14956 Therapeutic Procedure, Each 15 M inutes Completed 12/13/2019 88584 Electrical Stimulati on Manual, Each 15 Min, Constant Attendance Completed 12/13/2019 03452 Hot Or Cold Packs Completed 12/08/2019 92931 Therapeutic Procedure, Each 15 M inutes Completed 12/08/2019 27646 Therapeutic Procedure, Each 15 M inutes Completed 12/08/2019 38928 Electrical Stimulati on Manual, Each 15 Min, Constant Attendance Completed 12/08/2019 83265 Hot Or Cold Packs Completed 12/06/2019 89505 Hot Or Cold Packs Completed 12/06/2019 77160 Electrical Stimulati on Manual, Each 15 Min, Constant Attendance Completed 12/06/2019 07322 Therapeutic Procedure, Each 15 M inutes Completed 12/06/2019 00456 Therapeutic Procedure, Each 15 M inutes Completed 12/01/2019 19673 Therapeutic Procedure, Each 15 M inutes Completed 12/01/2019 90579 Hot Or Cold Packs Completed 11/29/2019 16800 Therapeutic Procedure, Each 15 M inutes Completed 11/29/2019 26758 Hot Or Cold Packs Completed 11/24/2019 46747 Physical Therapy Eval - Low Comp lexity Completed 11/08/2019 85280 Arthroscopy Shoulder Surgical Wi th Rotator Cuff Repair Completed 11/08/2019 08459 Arthroscopy Shoulder Remove Loose/Foreign Body Dist Claviculectom Completed 09/20/2019 90581 Inject/Drain Joint/Bursa Major C ompleted Medical Devices [...] of right shoulder, subsequent encounter Isamar Win, [facility] 01/23/2020 S46.011D Strain of muscle(s) and tendon(s) of the rotator cuff of right shoulder, subsequent encounter Isamar Win, [facility] 01/05/2020 S46.011D Strain of muscle(s) and tendon(s) of the rotator cuff of right shoulder, subsequent encounter Max Barba MD 01/02/2020 S46.011D Strain of muscle(s) and tendon(s) of the rotator cuff of right shoulder, subsequent encounter Isamar Win, [facility] 12/30/2019 S46.011D Strain of muscle(s) and tendon(s) of the rotator cuff of right shoulder, subsequent encounter Isamar Win, [facility] 12/26/2019 S46.011D Strain of muscle(s) and tendon(s) of the rotator cuff of right shoulder, subsequent encounter Isamar Win, [facility] 12/23/2019 S46.011D Strain of muscle(s) and tendon(s) of the rotator cuff of right shoulder, subsequent encounter Isamar MMaida Win, [facility] 12/20/2019 S46.011D Strain of muscle(s) and tendon(s) of the rotator cuff of right shoulder, subsequent encounter Isamar MMaida Win, [facility] 12/16/2019 S46.011D Strain of muscle(s) and tendon(s) of the rotator cuff of right shoulder, subsequent encounter Isamar M. Vespa, [facility] 12/13/2019 S46.011D Strain of muscle(s) and tendon(s) of the rotator cuff of right shoulder, subsequent encounter Isamar M. Vespa, [facility] 12/08/2019 S46.011D Strain of muscle(s) and tendon(s) of the rotator cuff of right shoulder, subsequent encounter Isamar M. Vespa, [facility] 12/06/2019 S46.011D Strain of muscle(s) and tendon(s) of the rotator cuff of right shoulder, subsequent encounter Isamar MMaida Win, [facility] 12/01/2019 S46.011D Strain of muscle(s) and tendon(s) [...] 9:45 am - Max Barba MD at [place] 01/05/2020 - Max Barba MD* S46.011D Strain of muscle(s) and tendon(s) of the rotator cuff of right shoulder, subsequent encounter* Follow up:* in 6 weeks with DPV for right shoulder recheck please. Functional Status Description No Information Available Mental Status Description No Information Available Referrals Refer to Reason for Referral Status Appt Date Wei Barba MD PT- [facility]TH[facility] AFTER SURGERY. PASSED TO PT DEPT. LS Created [address] [facility], [address] [place] [address] [phone]
--- OUTSIDE RECORDS SUMMARY | 2020-03-05 15:20 | CCD ---
Continuity of Care Document (CCD) Created on: 01/30/2020 Christy Vaz External Reference #: [id number] : [id number] Sex: Female Author Author Christy WIN MSPT Organization Unknown Address [address] [place] [address], [facility] [address] [place] [address] Phone [phone] Care Team Providers Care Web Applications Programmer Name Role Phone Cinda Renetta DREW AUTM [phone] Gurdeep Pritchard PA-C AUTM [phone] Problems Active Problems Provider Date Arthralgia of [...] bedtime as needed for anxiety Unknown Biotin [id number] Tablets 1 by mouth every day Unknown [...] H/L Range Note Laboratory test finding 11/03/2019 [facility] [address] [place] [address] (315)- - Coronavirus 2019 Nasopharygeal This nucleic aci <SEE NOTE> 1 1 This nucleic acid amplificat ion test was developed and its performance characteristics determined by [employer] (formerly [employer]). Nucleic acid amplification tests include PCR and [...] this assay. Performed at: RN - [facility] [address] [id number] Detective Private Eye: Val Parmar MD, Phone: [phone] Not Detected Procedures Date Code Description Status 01/26/2020 35826 Therapeutic Procedure, Each 15 M inutes Completed 01/26/2020 11730 Therapeutic Procedure, Each 15 M inutes Completed 01/26/2020 18505 Electrical Stimulati on Manual, Each 15 Min, Constant Attendance Completed 01/26/2020 57496 Hot Or Cold Packs Completed 01/23/2020 59036 Therapeutic Procedure, Each 15 M inutes Completed 01/23/2020 08727 Therapeutic Procedure, Each 15 M inutes Completed 01/23/2020 76840 Electrical Stimulati on Manual, Each 15 Min, Constant Attendance Completed 01/23/2020 87513 Hot Or Cold Packs Completed 01/02/2020 53323 Manual Therapy Each 15 Minutes C ompleted 01/02/2020 05999 Therapeutic Procedure, Each 15 M inutes Completed 01/02/2020 93247 Electrical Stimulati on Manual, Each 15 Min, Constant Attendance Completed 01/02/2020 78507 Hot Or Cold Packs Completed 12/30/2019 18074 Hot Or Cold Packs Completed 12/30/2019 74992 Electrical Stimulati on Manual, Each 15 Min, Constant Attendance Completed 12/30/2019 82709 Therapeutic Procedure, Each 15 M inutes Completed 12/30/2019 02891 Manual Therapy Each 15 Minutes C ompleted 12/26/2019 10165 Manual Therapy Each 15 Minutes C ompleted 12/26/2019 80169 Therapeutic Procedure, Each 15 M inutes Completed 12/26/2019 89065 Electrical Stimulati on Manual, Each 15 Min, Constant Attendance Completed 12/26/2019 14960 Hot Or Cold Packs Completed 12/23/2019 07972 Manual Therapy Each 15 Minutes C ompleted 12/23/2019 74258 Therapeutic Procedure, Each 15 M inutes Completed 12/23/2019 90008 Electrical Stimulati on Manual, Each 15 Min, Constant Attendance Completed 12/23/2019 22391 Hot Or Cold Packs Completed 12/20/2019 26846 Hot Or Cold Packs Completed 12/20/2019 05235 Electrical Stimulati on Manual, Each 15 Min, Constant Attendance Completed 12/20/2019 05172 Therapeutic Procedure, Each 15 M inutes Completed 12/16/2019 90268 Therapeutic Procedure, Each 15 M inutes Completed 12/16/2019 11591 Electrical Stimulati on Manual, Each 15 Min, Constant Attendance Completed 12/16/2019 06421 Hot Or Cold Packs Completed 12/13/2019 86687 Therapeutic Procedure, Each 15 M inutes Completed 12/13/2019 80878 Electrical Stimulati on Manual, Each 15 Min, Constant Attendance Completed 12/13/2019 72810 Hot Or Cold Packs Completed 12/08/2019 55768 Therapeutic Procedure, Each 15 M inutes Completed 12/08/2019 36202 Therapeutic Procedure, Each 15 M inutes Completed 12/08/2019 68034 Electrical Stimulati on Manual, Each 15 Min, Constant Attendance Completed 12/08/2019 74639 Hot Or Cold Packs Completed 12/06/2019 79478 Hot Or Cold Packs Completed 12/06/2019 85531 Electrical Stimulati on Manual, Each 15 Min, Constant Attendance Completed 12/06/2019 33164 Therapeutic Procedure, Each 15 M inutes Completed 12/06/2019 26545 Therapeutic Procedure, Each 15 M inutes Completed 12/01/2019 14803 Therapeutic Procedure, Each 15 M inutes Completed 12/01/2019 75521 Hot Or Cold Packs Completed 11/29/2019 78877 Therapeutic Procedure, Each 15 M inutes Completed 11/29/2019 94324 Hot Or Cold Packs Completed 11/24/2019 43155 Physical Therapy Eval - Low Comp lexity Completed 11/08/2019 73186 Arthroscopy Shoulder Surgical Wi th Rotator Cuff Repair Completed 11/08/2019 04828 Arthroscopy Shoulder Remove Loose/Foreign Body Dist Claviculectom Completed 09/20/2019 21192 Inject/Drain Joint/Bursa Major C ompleted Medical Devices Description No Information Available Encounters Type Date Location Provider Dx Diagnosis Office Visit 01/05/2020 1:00p Pneny Barba MD S4 6.011D Strain of musc/tend [...] of right shoulder, subsequent encounter Isamar Win, [facility] 01/23/2020 S46.011D Strain of muscle(s) and tendon(s) of the rotator cuff of right shoulder, subsequent encounter Isamar Win, [facility] 01/05/2020 S46.011D Strain of muscle(s) and tendon(s) of the rotator cuff of right shoulder, subsequent encounter Max Barba MD 01/02/2020 S46.011D Strain of muscle(s) and tendon(s) of the rotator cuff of right shoulder, subsequent encounter Isamar Win, [facility] 12/30/2019 S46.011D Strain of muscle(s) and tendon(s) of the rotator cuff of right shoulder, subsequent encounter Isamar Win, [facility] 12/26/2019 S46.011D Strain of muscle(s) and tendon(s) of the rotator cuff of right shoulder, subsequent encounter Isamar Win, [facility] 12/23/2019 S46.011D Strain of muscle(s) and tendon(s) of the rotator cuff of right shoulder, subsequent encounter Isamar MMaida Win, [facility] 12/20/2019 S46.011D Strain of muscle(s) and tendon(s) of the rotator cuff of right shoulder, subsequent encounter Isamar MMaida Win, [facility] 12/16/2019 S46.011D Strain of muscle(s) and tendon(s) of the rotator cuff of right shoulder, subsequent encounter Isamar M. Vespa, [facility] 12/13/2019 S46.011D Strain of muscle(s) and tendon(s) of the rotator cuff of right shoulder, subsequent encounter Isamar M. Vespa, [facility] 12/08/2019 S46.011D Strain of muscle(s) and tendon(s) of the rotator cuff of right shoulder, subsequent encounter Isamar M. Vespa, [facility] 12/06/2019 S46.011D Strain of muscle(s) and tendon(s) of the rotator cuff of right shoulder, subsequent encounter Isamar MMaida Win, [facility] 12/01/2019 S46.011D Strain of muscle(s) and [...] 9:45 am - Max Barba MD at [facility] Functional Status Description No Information Available Mental Status Description No Information Available Referrals Refer to Reason for Referral Status Appt Date Wei Barba MD PT- RT SHOULDER OK TO [facility] 3 MONTHS AFTER SURGERY. PASSED TO PT DEPT. LS Created [address], [address] [place] [address] [phone]
--- OUTSIDE RECORDS SUMMARY | 2020-03-05 15:20 | CCD ---
Author Author [facility] Organization [facility] Address Unknown Phone Unavailable Care Team Providers Care Instructor Warper Name Role Phone Tavia Falcon Unavailable PROBLEMS Type Condition ICD9-CM Code OQX03-AN Code Onset Dates Condition S tatus SNOMED Code Notes Problem Obesity E66.9 Active 998519606 Problem GERD (gastroesophageal reflux disease) K21.9 A ctive 373023125 Problem Biceps tendinitis on right M75.21 Active 45465 6007 Problem Lumbar back pain M54.5 Active 380863455 Problem S/P gastric bypass Z98.84 Active 905121522 Problem History of venous thrombosis and embolism Z86.718 Active 613697473 Problem Depression, unspecified depression type F32.9 Active 69476650 Problem Insomnia, unspecified type G47.00 Active 11791 2000 Problem Abnormal mammogram R92.8 Active 073172061 Problem Tear of meniscus of right kn ee as current injury, unspecified meniscus, unspecified tear type, initial encounter S83.206A Active 391354908 Problem Low vitamin D level E55.9 Active 850011210 Problem Conductive hearing loss, unspecified laterality H9 0.2 Active 64106862 Problem Vitamin D insufficiency E55.9 Active 85974728 4 Problem Facial droop R29.810 Active 78814402 Problem Situational depression F43.21 Active 30070125 Problem Post concussion syndrome F07.81 Active 5973104 4 Problem Bipolar disorder, unspecified F31.9 Active 13 555880 ALLERGIES No Known Allergies ENCOUNTERS from 1960 to 2020-01-20 Encounter Location Date Provider Diagnosis [facility] Resident [address] [facility] [address] Aug, Tavia Falcon Encounter for preventive car e Z00.00 ; History of DVT of lower extremity Z86.718 and Bipolar disorder, unspecified F31.9 IMMUNIZATIONS Vaccine Route Administration Date Status Zoster [...] Education Language: Question Answer Notes Languages spoken: [place] Church: Question Answer Notes [employer] Domestic Violence: Question Answer Notes Status: Single [...] FOR REFERRAL No Information VITAL SIGNS Weight 162 lbs Aug, Height 63.25 in Aug, BMI 28.47 kg/m2 Aug, Heart Rate 80 /min Aug, Respiratory Rate 18 /min Aug, Temperature 97 degrees Fahrenheit Aug, Oximetry 97 Aug, Blood pressure systolic 120 mm Hg Aug, Blood pressure diastolic 70 mm Hg Aug, MEDICATIONS Medication SIG (Take, Route, Frequency, Duration) Notes Start Da te End Date Status Adderall XR 20 MG 1 capsule in the morning Orally Once a day Active Biotin 88245 MCG 1 tablet Orally Once a day Active Vitamin B12 500 MCG 1 tab(s) Orally Once a day Active Centrum 1 2 tablets Orally once daily Active Zoloft 25 MG 1 tablet Orally Once a day for 30 day(s) Not-Taking Terbinafine HCl 1 % 1 application Externally to toes Twice a day for 30 days Dec, Not-Taking Vitamin D 1000 UNIT 1 tablet Orally Once a day for 30 day(s) Feb, Active Klonopin 1 mg 1 tablet Orally three times dailyas needed MDD: 3 Active PROzac 20 MG 1 capsule Orally Once a day Active Xarelto 20 MG 1 tablet with food Orally Once a day for 30 days Active Abilify 2 mg- 1 tablet Orally Once a day (Littel) for 30 day(s) Active Xarelto 20 MG 1 tablet with food Orally Once a day for 30 days Unknown Calcium Citrate Chewy Bite 500-500 MG-UNIT 1 tab(s) Orally twice daily May, Active Restasis 0.05 % 1 into affected eye Ophthalmic prn Active Acetic Acid 2 % 5 drops into affected ear Otic Three mike es a day for 10 day(s) Aug, Not-Taking PROCEDURES No Information RESULTS No Results REASON FOR VISIT 6 MONTHS MEDICAL (GENERAL) HISTORY Type Description Date Medical History DVT Recurrent 1980, twice in the , 2000, 2006 Medical History bipolar 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 Medical History [...] (prescribed Adderall) 12/2013 Hospitalization History [facility] Hospitalization History [facility] Hospital[facility] [place] [place] Hospitalization History cellulitis 08/2012 Goals Section No Information Health Concerns No Information MEDICAL EQUIPMENT No Information MENTAL STATUS No Information FUNCTIONAL STATUS No Information ASSESSMENTS Encounter Date Diagnosis Assessment Notes Treatment Notes Treatm ent Clinical Notes Aug, Encounter for preventive care (ICD-10 - Z00.00) Last Colonoscopy was in 2016 and was normal. Next will be in 2026. Last Mammography 10/2018 and was normal. Will repeat 10/2019. Last Pap Smear 04/2014 and was normal. Will schedule another with mammography at [facility] in 10/2019. Will schedule DEXA at age 64. Patient is non/never smoker. Aug, History of DVT of lower extremity (ICD-10 - Z86. 718) As stated previously, the patient is stable on Xarelto and has not had a DVT in several years. She does have a jairo filter in place and, per the literature, these filters do not necessarily need to be removed after a certain amount of time. Studies have found that after 8 years of filter placement, patients are 30% less likely to have fatal pulmonary emboli compared to those who had theirs removed. I see that it poses no harm to her at this time. Aug, Bipolar disorder, unspecified (ICD-10 - F31.9) The patient reports that she is currently stable on her current dose of Abilify and has not had any mental health issues in the past several years. I do not prescribe these medications, her psychiatrist does, but I agree with the current treatment plan. Aug, Other Patient Educated with: PPSV23 [id number].pdf (PPSV23 [id number].pdf) Patient Educated with: [employer] (Live) [id number].pdf (Zoster (Live) [id number].pdf) Last Colonoscopy was in 2016 and was normal. Next will be in 2026. Last Mammography 10/2018 and was normal. Will repeat 10/2019. Last Pap Smear 04/2014 and was normal. Will schedule another with mammography at [facility] in 10/2019. Will schedule DEXA at age 64. Patient is non/never smoker. PLAN OF TREATMENT Treatment Notes Assessment Notes Clinical Notes Encounter for preventive care Last Colon oscopy was in 2016 and was normal. Next will be in 2026.Last Mammography 10/2018 and was normal. Will repeat 10/2019.Last Pap Smear 04/2014 and was normal. Will schedule another with mammog mima at [facility] in 10/2019.Will schedule DEXA at age 64.Patient is non/never smoker. History of DVT of lower extremity As sta zak previously, the patient is stable on Xarelto and has not had a DVT in several years. She does have a jairo filter in place and, per the literature, these filters do not necessarily need t o be removed after a certain amount of time. Studies have found that after 8 years of filter placement, patients are 30% less likely to have fatal pulmonary emboli compared to those who had theirs removed. I see that it poses no harm to her at this time. Bipolar disorder, unspecified The patien t reports that she is currently stable on her current dose of Abilify and has not had any mental health issues in the past several years. I do not prescribe these medications, her psychiatrist does, but I agree with the current treatment plan. Next Appt Details 6 Months Reason:f/u chronic conditions Provider Name:Yulia Allred, 2020-01-23 09:00:00 AM, [address] [place], [address], Provider Name:Adrian Anthony Familia, 08-09 02:30:00 PM, [address] [facility] [facility], [place], [address], Follow Up:6 Monthsf/u chronic conditions Insurance Providers Payer Name Payer Address Payer Phone Insured Name Patient Relati onship to Insured Coverage Start Date Coverage End Date MEDICARE COMPLETE [employer] [address] [address] [facility] [address] HANNHA SHAFER self MEDICAID [facility] [address] [facility] [id number] HANNAH SHAFER self
--- OUTSIDE RECORDS SUMMARY | 2020-03-05 15:21 | CCD | Continuity of Care Document ---
Author Author Christy BILLS MSPT Organization Unknown Address [address] [place] [address], [facility] [address] [place] [address] Phone [phone] Care Team Providers Care Helmet Hat Puncher Name Role Phone Cinda Renetta DREW AUTM [phone] Gurdeep Pritchard PA-C AUTM [phone] Problems Active Problems Provider Date Arthralgia of [...] bedtime as needed for anxiety Unknown Biotin 19338xfh Tablets 1 by mouth every day Unknown [...] Note Laboratory test finding 11/03/2019 [facility] [address] [place] [address] (315)- - Coronavirus 2019 Nasopharygeal This nucleic aci <SEE NOTE> 1 1 This nucleic acid amplificat ion test was developed and its performance characteristics determined by [employer]. Nucleic acid amplification tests include PCR and [...] this assay. Performed at: RN - [facility] [address] [id number] Press [employer]: Val Parmar MD, Phone: [phone] Not Detected Procedures Date Code Description Status 01/02/2020 96852 Manual Therapy Each 15 Minutes C ompleted 01/02/2020 14597 Therapeutic Procedure, Each 15 M inutes Completed 01/02/2020 63257 Electrical Stimulati on Manual, Each 15 Min, Constant Attendance Completed 01/02/2020 92703 Hot Or Cold Packs Completed 12/30/2019 85089 Manual Therapy Each 15 Minutes C ompleted 12/30/2019 11797 Therapeutic Procedure, Each 15 M inutes Completed 12/30/2019 80643 Electrical Stimulati on Manual, Each 15 Min, Constant Attendance Completed 12/30/2019 06723 Hot Or Cold Packs Completed 12/26/2019 83054 Hot Or Cold Packs Completed 12/26/2019 00152 Electrical Stimulati on Manual, Each 15 Min, Constant Attendance Completed 12/26/2019 06341 Therapeutic Procedure, Each 15 M inutes Completed 12/26/2019 84415 Manual Therapy Each 15 Minutes C ompleted 12/23/2019 36531 Manual Therapy Each 15 Minutes C ompleted 12/23/2019 48965 Therapeutic Procedure, Each 15 M inutes Completed 12/23/2019 47546 Electrical Stimulati on Manual, Each 15 Min, Constant Attendance Completed 12/23/2019 14197 Hot Or Cold Packs Completed 12/20/2019 48614 Therapeutic Procedure, Each 15 M inutes Completed 12/20/2019 34024 Electrical Stimulati on Manual, Each 15 Min, Constant Attendance Completed 12/20/2019 97550 Hot Or Cold Packs Completed 12/16/2019 02975 Hot Or Cold Packs Completed 12/16/2019 01571 Electrical Stimulati on Manual, Each 15 Min, Constant Attendance Completed 12/16/2019 97885 Therapeutic Procedure, Each 15 M inutes Completed 12/13/2019 67293 Therapeutic Procedure, Each 15 M inutes Completed 12/13/2019 19576 Electrical Stimulati on Manual, Each 15 Min, Constant Attendance Completed 12/13/2019 88518 Hot Or Cold Packs Completed 12/08/2019 21344 Therapeutic Procedure, Each 15 M inutes Completed 12/08/2019 17013 Therapeutic Procedure, Each 15 M inutes Completed 12/08/2019 00335 Electrical Stimulati on Manual, Each 15 Min, Constant Attendance Completed 12/08/2019 16760 Hot Or Cold Packs Completed 12/06/2019 58859 Hot Or Cold Packs Completed 12/06/2019 39212 Electrical Stimulati on Manual, Each 15 Min, Constant Attendance Completed 12/06/2019 78654 Therapeutic Procedure, Each 15 M inutes Completed 12/06/2019 56141 Therapeutic Procedure, Each 15 M inutes Completed 12/01/2019 66560 Therapeutic Procedure, Each 15 M inutes Completed 12/01/2019 50898 Hot Or Cold Packs Completed 11/29/2019 85446 Therapeutic Procedure, Each 15 M inutes Completed 11/29/2019 36999 Hot Or Cold Packs Completed 11/24/2019 19314 Physical Therapy Eval - Low Comp lexity Completed 11/08/2019 47238 Arthroscopy Shoulder Surgical Wi th Rotator Cuff Repair Completed 11/08/2019 07756 Arthroscopy Shoulder Remove Loose/Foreign Body Dist Claviculectom Completed 09/20/201949677 Inject/Drain Joint/Bursa Major C ompleted Medical Devices Description No Information Available Encounters Type Date Location Provider Dx Diagnosis Office Visit 01/05/2020 1:00p Penny Barba MD S4 6.011D Strain of musc/tend the rotator cuff of right shoulder, subs Office Visit 11/16/2019 10:00a Penny Barba MD S4 6.011D Strain of musc/tend the rotator cuff of right shoulder, subs Office Visit 09/20/2019 11:15a [facility] Ros[facility] PA-C S46.011 D Strain of musc/tend the rotator cuff of right shoulder, subs Office Visit 07/13/2019 8:30a Penny Barba MD S4 6.011A Strain of musc/tend the rotator cuff of right shoulder, init Assessments Date Code Description Provider 01/05/2020 S46.011D Strain of muscle(s) and tendon(s) of the rotator cuff of right shoulder, subsequent encounter Max Barba MD 01/02/2020 S46.011D Strain of muscle(s) and tendon(s) of the rotator cuff of right shoulder, subsequent encounter RUBINA Conde 12/30/2019 S46.011D Strain of muscle(s) and tendon(s) of the rotator cuff of right shoulder, subsequent encounter Isamar M. Vespa, [facility] 12/26/2019 S46.011D Strain of muscle(s) and tendon(s) of the rotator cuff of right shoulder, subsequent encounter Isamar M. Vespa, [facility] 12/23/2019 S46.011D Strain of muscle(s) and tendon(s) of the rotator cuff of right shoulder, subsequent encounter Isamar M. Vespa, [facility] 12/20/2019 S46.011D Strain of muscle(s) and tendon(s) of the rotator cuff of right shoulder, subsequent encounter Isamar M. Vespa, [facility] 12/16/2019 S46.011D Strain of muscle(s) and tendon(s) of the rotator cuff of right shoulder, subsequent encounter Isamar M. Vespa, [facility] 12/13/2019 S46.011D Strain of muscle(s) and tendon(s) of the rotator cuff of right shoulder, subsequent encounter Isamar M. Vespa, [facility] 12/08/2019 S46.011D Strain of muscle(s) and tendon(s) of the rotator cuff of right shoulder, subsequent encounter Isamar M. Vespa, [facility] 12/06/2019 S46.011D Strain of muscle(s) and tendon(s) of the rotator cuff of right shoulder, subsequent encounter Isamar M. Vespa, [facility] 12/01/2019 S46.011D Strain of muscle(s) and tendon(s) of the rotator cuff of right shoulder, subsequent encounter Isamar M. Vespa, [facility] 11/29/2019 S46.011D Strain of muscle(s) and tendon(s) of the rotator cuff of right shoulder, subsequent encounter Isamar M. Vespa, [facility] 11/24/2019 S46.011D Strain of muscle(s) and tendon(s) of the rotator cuff of right shoulder, subsequent encounter Leeroy Gaytan PT, DPT 11/16/2019 S46.011D Strain of muscle(s) [...] right shoulder, subsequent encounter Mindy Rosas PA-C 07/13/2019 S46.011A Strain of muscle(s) and tendon(s) of the rotator cuff of right shoulder, initial encounter Max Barba MD Plan of Treatment Future Appointment(s):* 01/10/2020 10:30 am - RUBINA Conde at Physical Therapy * 02/13/2020 9:45 am - Max Barba MD at [place] 01/05/2020 - Max Barba MD* S46.011D Strain [...] PT- RT SHOULDER OK TO [facility] 3 MONTHS AFTER SURGERY. PASSED TO PT DEPT. LS Created [address] [place] [address], [address] [address] [phone] Wei Barba MD SURGERY- RT SHOULDER [id number] OK TO [facility] PER MTGS. (FULL THICKNESS TEAR) PASSED TO SURGERY. LS Created [address] [place] [address], [address] [address] [phone] Wei Barba MD DME RT SHOULDER ARC PILLOW OK TO KRAMER PPLY HERE. LS Created [address] [facility], [address] [place] [address] [phone]
--- OUTSIDE RECORDS SUMMARY | 2020-03-05 15:21 | CCD | Continuity of Care Document ---
Author Author Christy BARBA MD Organization Unknown Address [address] [facility], [facility] e [address] [place] [address] Phone [phone] Care Team Providers Care Scientific Writer Name Role Phone Renetta Loo DREW AUTM [phone] Gurdeep Pritchard PA-C AUTM [phone] Problems Active Problems Provider Date Arthralgia of [...] bedtime as needed for anxiety Unknown Biotin [id number] Tablets 1 by mouth every day Unknown [...] H/L Range Note Laboratory test finding 11/03/2019 [facility] [address] [place] [address] (315)- - Coronavirus 2019 Nasopharygeal This nucleic aci <SEE NOTE> 1 1 This nucleic acid amplificat ion test was developed and its performance characteristics determined by [employer]. Nucleic acid amplification tests include PCR and [...] this assay. Performed at: RN - [facility] [address] [id number] Electro Mechanic: Val Parmar MD, Phone: [phone] Not Detected Procedures Date Code Description Status 01/02/2020 08242 Manual Therapy Each 15 Minutes C ompleted 01/02/2020 96893 Therapeutic Procedure, Each 15 M inutes Completed 01/02/2020 62827 Electrical Stimulati on Manual, Each 15 Min, Constant Attendance Completed 01/02/2020 24872 Hot Or Cold Packs Completed 12/30/2019 32112 Manual Therapy Each 15 Minutes C ompleted 12/30/2019 72424 Therapeutic Procedure, Each 15 M inutes Completed 12/30/2019 60358 Electrical Stimulati on Manual, Each 15 Min, Constant Attendance Completed 12/30/2019 98365 Hot Or Cold Packs Completed 12/26/2019 69643 Hot Or Cold Packs Completed 12/26/2019 11393 Electrical Stimulati on Manual, Each 15 Min, Constant Attendance Completed 12/26/2019 57366 Therapeutic Procedure, Each 15 M inutes Completed 12/26/2019 45819 Manual Therapy Each 15 Minutes C ompleted 12/23/2019 82436 Manual Therapy Each 15 Minutes C ompleted 12/23/2019 00701 Therapeutic Procedure, Each 15 M inutes Completed 12/23/2019 08596 Electrical Stimulati on Manual, Each 15 Min, Constant Attendance Completed 12/23/2019 03603 Hot Or Cold Packs Completed 12/20/2019 25518 Therapeutic Procedure, Each 15 M inutes Completed 12/20/2019 14204 Electrical Stimulati on Manual, Each 15 Min, Constant Attendance Completed 12/20/2019 39549 Hot Or Cold Packs Completed 12/16/2019 40989 Hot Or Cold Packs Completed 12/16/2019 28450 Electrical Stimulati on Manual, Each 15 Min, Constant Attendance Completed 12/16/2019 32637 Therapeutic Procedure, Each 15 M inutes Completed 12/13/2019 04262 Therapeutic Procedure, Each 15 M inutes Completed 12/13/2019 47777 Electrical Stimulati on Manual, Each 15 Min, Constant Attendance Completed 12/13/2019 37494 Hot Or Cold Packs Completed 12/08/2019 58085 Therapeutic Procedure, Each 15 M inutes Completed 12/08/2019 56353 Therapeutic Procedure, Each 15 M inutes Completed 12/08/2019 89827 Electrical Stimulati on Manual, Each 15 Min, Constant Attendance Completed 12/08/2019 38190 Hot Or Cold Packs Completed 12/06/2019 50812 Hot Or Cold Packs Completed 12/06/2019 98951 Electrical Stimulati on Manual, Each 15 Min, Constant Attendance Completed 12/06/2019 11332 Therapeutic Procedure, Each 15 M inutes Completed 12/06/2019 73715 Therapeutic Procedure, Each 15 M inutes Completed 12/01/2019 74776 Therapeutic Procedure, Each 15 M inutes Completed 12/01/2019 03681 Hot Or Cold Packs Completed 11/29/2019 87783 Therapeutic Procedure, Each 15 M inutes Completed 11/29/2019 05472 Hot Or Cold Packs Completed 11/24/2019 57970 Physical Therapy Eval - Low Comp lexity Completed 11/08/2019 32961 Arthroscopy Shoulder Surgical Wi th Rotator Cuff Repair Completed 11/08/2019 36887 Arthroscopy Shoulder Remove Loose/Foreign Body Dist Claviculectom Completed 09/20/201991908 Inject/Drain Joint/Bursa Major C ompleted Medical Devices Description No Information Available Encounters Type Date Location Provider Dx Diagnosis Office Visit 01/05/2020 1:00p Penny Barba MD S4 6.011D Strain of musc/tend the rotator cuff of right shoulder, subs Office Visit 11/16/2019 10:00a Penny Barba MD S4 6.011D Strain of musc/tend the rotator cuff of right shoulder, subs Office Visit 09/20/2019 11:15a [place]-C S46.011 D Strain of musc/tend [...] right shoulder, subsequent encounter Isamar M. Vespa, [facility] 12/26/2019 S46.011D Strain of muscle(s) and tendon(s) of the rotator cuff of right shoulder, subsequent encounter Isamar M. Vespa, [facility] 12/23/2019 S46.011D Strain of muscle(s) and tendon(s) of the rotator cuff of right shoulder, subsequent encounter Isamar M. Vespa, [facility] 12/20/2019 S46.011D Strain of muscle(s) and tendon(s) of the rotator cuff of right shoulder, subsequent encounter Isamar M. Vespa, [facility] 12/16/2019 S46.011D Strain of muscle(s) and tendon(s) of the rotator cuff of right shoulder, subsequent encounter Isamar M. Vespa, [facility] 12/13/2019 S46.011D Strain of muscle(s) and tendon(s) of the rotator cuff of right shoulder, subsequent encounter Isamar M. Vespa, [facility] 12/08/2019 S46.011D Strain of muscle(s) and tendon(s) of the rotator cuff of right shoulder, subsequent encounter Isamar M. Vespa, [facility] 12/06/2019 S46.011D Strain of muscle(s) and tendon(s) of the rotator cuff of right shoulder, subsequent encounter Isamar M. Vespa, [facility] 12/01/2019 S46.011D Strain of muscle(s) and tendon(s) of the rotator cuff of right shoulder, subsequent encounter Isamar M. Vespa, [facility] 11/29/2019 S46.011D Strain of muscle(s) and tendon(s) of the rotator cuff of right shoulder, subsequent encounter Isamar M. Vespa, [facility] 11/24/2019 S46.011D Strain of muscle(s) and tendon(s) of the rotator cuff of right shoulder, subsequent encounter Leeroy Gaytan PT, T 11/16/2019 S46.011D Strain of muscle(s) and tendon(s) [...] 9:45 am - Max Barba MD at [place] 01/05/2020 - Max Barba MD* S46.011D Strain [...] PT- RT SHOULDER OK TO [facility] 3 MONTHS AFTER SURGERY. PASSED TO PT DEPT. LS Created [address] [place] [address], [address] [address] [phone] Wei Barba MD SURGERY- RT SHOULDER [id number] [phone] [id number] OK TO [facility] PER MTGS. (FULL THICKNESS TEAR) PASSED TO SURGERY. LS Created [address] [place] [address], [address] [address] [phone] Wei Barba MD DME RT SHOULDER ARC PILLOW OK TO [facility] PPLY HERE. LS Created [address] [facility], [address] [place] [address] [phone]
--- OUTSIDE RECORDS SUMMARY | 2020-03-05 15:21 | CCD | Continuity of Care Document ---
Author Author Christy [employer] OPER[employer] SPECIALIST Organization Unknown Address [address] [place] [address] Phone [phone] Problems Description No Information Available Social History Type Date Description Comments Sex Unknown ETOH Use Rarely consumes alcohol Tobacco Use Start: Unknown Patient has never smoked Tobacco Use Start: Unknown The Patient Has Never Vaped Smoking Status Reviewed: 01/11/20 The Patient Has Never Vaped Allergies, Adverse Reactions, Alerts Description No Known Drug Allergies Medications Active Medications SIG Qnty Indications Ordering Provide r Date Silver Sulfadiazine 1% Cream apply to affected area twice a day x7 days 40gm T21.25xA Diego ch JR., M.D. 01/11/2020 Abilify 2mg Tablets Stephon Austin, /PHD Xarelto 20mg Tablets Unknown Restasis 0.05% Emulsion as ne eded Unknown Centrum Adults Tablets 2 tab s po am Unknown Calcium Citrate + Tablets bi d Unknown Vitamin B-12 Natural 500mcg Tablets daily Unknown Biotin 5000mcg Tablets 2 t abs po daily Unknown Clonazepam 1mg Tablets tid Unknown Adderall XR Unknown Folic Acid 100mcg Tablets Unknown Vitamin D3 Gummies Adult 1000Unit [employer] Unknown Prozac Unknown Immunizations CPT Code Status Date Vaccine Reaction Lot # [id number] Given 02/15/2018 PPD- TB Intradermal Test 0mm ,negative read by Harvey NICHOLSON on 02-17-18 at 4:20p [id number] Given 02/17/2017 PPD- TB Intradermal Test 0mm ,negative Read by BHARAT Palmer [id number] Vital Signs Date Vital Result Comment 01/11/2020 1:09pm BP Systolic 130 mmHg BP Diastolic 85 mmHg Heart Rate 68 /min Respiratory Rate 16 /min O2 % BldC Oximetry 98 % Body Temperature 98.3 F Weight 162.00 lb Height 63 inches 5'3" BMI (Body Mass Index) 28.7 kg/m2 Pain Level 8 03/09/2019 12:02pm BP Systolic 116 mmHg BP Diastolic 77 mmHg Heart Rate 82 /min Respiratory Rate 16 /min O2 % BldC Oximetry 98 % Body Temperature 98.7 F Weight 150.00 lb Height 63 inches 5'3" BMI (Body Mass Index) 26.6 kg/m2 Pain Level 5 Results Description No Information Available Procedures Date Code Description Status 01/11/2020 20953 Burn Dressing And/Or Debrd Init/Sub Partial Thickness < 5% Total Completed Medical Devices Description No Information Available Encounters Type Date Location Provider Dx Diagnosis Office Visit 01/11/2020 2:35p Main Office Ana Foss NP T21. 25xA Burn of second degree of buttock, initial encounter Assessments Date Code Description Provider 01/11/2020 T21.25xA Burn of second degree of buttock , initial encounter Ana Foss NP Plan of Treatment 01/11/2020 - Ana Foss NP* T21.25xA Burn of second degree of buttock, initial encounter* New Medication:* Silver Sulfadiazine 1 % - apply to affected area twice a day x7 days * Comments:* wound care as discussed and demonstrated in office today; clean wound with soap & water, pat dry. Thin layer of silvadene applied to wound, non-adherent gauze applied.RTC for worsening sx as discussedf/u PRN or with PCPpatient v/u & agrees to plan Functional Status Description No Information Available Mental Status Description No Information Available Referrals Description No Information Available
--- OUTSIDE RECORDS SUMMARY | 2020-03-05 15:21 | CCD | Continuity of Care Document ---
Author Author Christy BILLS MSPT Organization Unknown Address [address] [place] [address], [facility] [address] [place] [address] Phone [phone] Care Team Providers Care Promotional Demonstrator Name Role Phone Cinda Renetta DREW AUTM [phone] Gurdeep Pritchard PA-C AUTM [phone] Problems Active Problems Provider Date Arthralgia of [...] bedtime as needed for anxiety Unknown Biotin [id number] Tablets 1 by mouth every day Unknown [...] H/L Range Note Laboratory test finding 11/03/2019 [facility] [address] [place] [address] (315)- - Coronavirus 2019 Nasopharygeal This nucleic aci <SEE NOTE> 1 1 This nucleic acid amplificat ion test was developed and its performance characteristics determined by [employer]. Nucleic acid amplification tests include PCR and [...] this assay. Performed at: RN - [facility] [address] [id number] Bottom Turning Lathe Turner: Val Parmar MD, Phone: [phone] Not Detected Procedures Date Code Description Status 01/02/2020 04390 Manual Therapy Each 15 Minutes C ompleted 01/02/2020 67080 Therapeutic Procedure, Each 15 M inutes Completed 01/02/2020 08692 Electrical Stimulati on Manual, Each 15 Min, Constant Attendance Completed 01/02/2020 25775 Hot Or Cold Packs Completed 12/30/2019 07580 Manual Therapy Each 15 Minutes C ompleted 12/30/2019 43374 Therapeutic Procedure, Each 15 M inutes Completed 12/30/2019 40901 Electrical Stimulati on Manual, Each 15 Min, Constant Attendance Completed 12/30/2019 19661 Hot Or Cold Packs Completed 12/26/2019 69119 Hot Or Cold Packs Completed 12/26/2019 78558 Electrical Stimulati on Manual, Each 15 Min, Constant Attendance Completed 12/26/2019 56647 Therapeutic Procedure, Each 15 M inutes Completed 12/26/2019 73224 Manual Therapy Each 15 Minutes C ompleted 12/23/2019 60777 Manual Therapy Each 15 Minutes C ompleted 12/23/2019 98067 Therapeutic Procedure, Each 15 M inutes Completed 12/23/2019 73452 Electrical Stimulati on Manual, Each 15 Min, Constant Attendance Completed 12/23/2019 06241 Hot Or Cold Packs Completed 12/20/2019 67827 Therapeutic Procedure, Each 15 M inutes Completed 12/20/2019 10409 Electrical Stimulati on Manual, Each 15 Min, Constant Attendance Completed 12/20/2019 65850 Hot Or Cold Packs Completed 12/16/2019 38939 Hot Or Cold Packs Completed 12/16/2019 73084 Electrical Stimulati on Manual, Each 15 Min, Constant Attendance Completed 12/16/2019 73995 Therapeutic Procedure, Each 15 M inutes Completed 12/13/2019 44454 Therapeutic Procedure, Each 15 M inutes Completed 12/13/2019 45627 Electrical Stimulati on Manual, Each 15 Min, Constant Attendance Completed 12/13/2019 39361 Hot Or Cold Packs Completed 12/08/2019 04680 Therapeutic Procedure, Each 15 M inutes Completed 12/08/2019 68207 Therapeutic Procedure, Each 15 M inutes Completed 12/08/2019 96430 Electrical Stimulati on Manual, Each 15 Min, Constant Attendance Completed 12/08/2019 80503 Hot Or Cold Packs Completed 12/06/2019 66550 Hot Or Cold Packs Completed 12/06/2019 71055 Electrical Stimulati on Manual, Each 15 Min, Constant Attendance Completed 12/06/2019 10683 Therapeutic Procedure, Each 15 M inutes Completed 12/06/2019 71180 Therapeutic Procedure, Each 15 M inutes Completed 12/01/2019 09525 Therapeutic Procedure, Each 15 M inutes Completed 12/01/2019 84125 Hot Or Cold Packs Completed 11/29/2019 12923 Therapeutic Procedure, Each 15 M inutes Completed 11/29/2019 49529 Hot Or Cold Packs Completed 11/24/2019 39231 Physical Therapy Eval - Low Comp lexity Completed 11/08/2019 34280 Arthroscopy Shoulder Surgical Wi th Rotator Cuff Repair Completed 11/08/2019 77829 Arthroscopy Shoulder Remove Loose/Foreign Body Dist Claviculectom Completed 09/20/201982952 Inject/Drain Joint/Bursa Major C ompleted Medical Devices Description No Information Available Encounters Type Date Location Provider Dx Diagnosis Office Visit 01/05/2020 1:00p Penny Barba MD S4 6.011D Strain of musc/tend the rotator cuff of right shoulder, subs Office Visit 11/16/2019 10:00a Penny Barba MD S4 6.011D Strain of musc/tend the rotator cuff of right shoulder, subs Office Visit 09/20/2019 [place] S46.011 D Strain of musc/tend [...] right shoulder, subsequent encounter Isamar M. Vespa, [facility] 12/26/2019 S46.011D Strain of muscle(s) and tendon(s) of the rotator cuff of right shoulder, subsequent encounter Isamar M. Vespa, [facility] 12/23/2019 S46.011D Strain of muscle(s) and tendon(s) of the rotator cuff of right shoulder, subsequent encounter [facility], [facility] 12/20/2019 S46.011D Strain of muscle(s) and tendon(s) of the rotator cuff of right shoulder, subsequent encounter Isamar M. Vespa, [facility] 12/16/2019 S46.011D Strain of muscle(s) and tendon(s) of the rotator cuff of right shoulder, subsequent encounter Isamar M. Vespa, [facility] 12/13/2019 S46.011D Strain of muscle(s) and tendon(s) of the rotator cuff of right shoulder, subsequent encounter Isamar M. Vespa, [facility] 12/08/2019 S46.011D Strain of muscle(s) and tendon(s) of the rotator cuff of right shoulder, subsequent encounter Isamar M. Vespa, [facility] 12/06/2019 S46.011D Strain of muscle(s) and tendon(s) of the rotator cuff of right shoulder, subsequent encounter Isamar M. Vespa, [facility] 12/01/2019 S46.011D Strain of muscle(s) and tendon(s) of the rotator cuff of right shoulder, subsequent encounter Is[facility] M. Vespa, [facility] 11/29/2019 S46.011D Strain of muscle(s) and tendon(s) of the rotator cuff of right shoulder, subsequent encounter [facility]. [facility], [facility] 11/24/2019 S46.011D Strain of muscle(s) and tendon(s) [...] 9:45 am - Max Barba MD at [place] 01/05/2020 - Max Barba MD* S46.011D Strain of muscle(s) and tendon(s) of the rotator cuff of right shoulder, subsequent encounter* Follow up:* in 6 weeks with DPV for right shoulder recheck please. Functional Status Description No Information Available Mental Status Description No Information Available Referrals Refer to Dr Reason for Referral Status Appt Date Wei Barba MD PT- RT SHOULDER [facility] TO [facility] 3 MONTHS AFTER SURGERY. PASSED TO PT DEPT. LS Created [address] [place] [address], [address] [address] [phone] Wei Barba MD SURGERY- RT SHOULDER [id number] [id number] OK TO [facility] PER MTGS. (FULL THICKNESS TEAR) PASSED TO SURGERY. LS Created [address] [place] [address], [address] [address] [phone] Wei Barba MD DME RT SHOULDER ARC PILLOW OK TO [facility]ER PPLY HERE. LS Created [address] [facility], [address] [place] [address] [phone]
--- OUTSIDE RECORDS SUMMARY | 2020-03-05 15:21 | CCD | Continuity of Care Document ---
Author Author Christy [employer]PER[employer] VICE PRESIDENT Organization Unknown Address [address] [place] [address] Phone [phone] Problems Description No Information Available Social History [...] ch JR., M.D. 01/11/2020 Abilify 2mg Tablets Stpehon Austin, /PHD Xarelto 20mg Tablets Unknown Restasis [...] Code Status Date Vaccine Reaction Lot # [id number] Given 02/15/2018 PPD- TB Intradermal Test 0mm ,negative read by Harvey NICHOLSON on 02-17-18 at 4:20p [id number] [id number] Given 02/17/2017 PPD- TB Intradermal Test 0mm ,negative Read by BHARAT Palmer [id number] Vital Signs Date Vital Result Comment 01/11/2020 [...] 5 Results Description No Information Available Procedures Description No Information Available Medical Devices Description No Information Available Encounters Description No Information Available Assessments Date Code Description Provider 01/11/2020 T21.25xA Burn of second degree of buttock , initial encounter Ana Foss NP Plan of Treatment 01/11/2020 - Ana Foss NP* T21.25xA Burn of second degree of buttock, initial encounter* New Medication:* Silver Sulfadiazine 1 % - apply to affected area twice a day x7 days Functional Status Description No Information Available Mental Status Description No Information Available Referrals Description No Information Available
--- OUTSIDE RECORDS SUMMARY | 2020-03-05 15:21 | CCD | Continuity of Care Document ---
Author Author Christy BARBA MD Organization Unknown Address [address] [facility], [facility] e [address] [place] [id number] Phone [phone] Care Team Providers Care Sausage Stuffer Name Role Phone Renetta Loo DREW AUTM [phone] Gurdeep Pritchard PA-C AUTM [phone] Problems Active Problems Provider Date Arthralgia of [...] bedtime as needed for anxiety Unknown Biotin [id number] Tablets 1 by mouth every day Unknown [...] H/L Range Note Laboratory test finding 11/03/2019 [facility] [address] [place] [address] [phone] Coronavirus 2019 Nasopharygeal This nucleic aci <SEE NOTE> 1 1 This nucleic acid amplificat ion test was developed and its performance characteristics determined by [employer]. Nucleic acid amplification tests include PCR and [...] this assay. Performed at: RN - [facility] [address] [id number] Knife Blade Polisher: Val Parmar MD, Phone: [phone] Not Detected Procedures Date Code Description Status 01/02/2020 94119 Manual Therapy Each 15 Minutes C ompleted 01/02/2020 25058 Therapeutic Procedure, Each 15 M inutes Completed 01/02/2020 55803 Electrical Stimulati on Manual, Each 15 Min, Constant Attendance Completed 01/02/2020 97089 Hot Or Cold Packs Completed 12/30/2019 77671 Manual Therapy Each 15 Minutes C ompleted 12/30/2019 25197 Therapeutic Procedure, Each 15 M inutes Completed 12/30/2019 73563 Electrical Stimulati on Manual, Each 15 Min, Constant Attendance Completed 12/30/2019 55567 Hot Or Cold Packs Completed 12/26/2019 03670 Hot Or Cold Packs Completed 12/26/2019 34737 Electrical Stimulati on Manual, Each 15 Min, Constant Attendance Completed 12/26/2019 31910 Therapeutic Procedure, Each 15 M inutes Completed 12/26/2019 33513 Manual Therapy Each 15 Minutes C ompleted 12/23/2019 98934 Manual Therapy Each 15 Minutes C ompleted 12/23/2019 21856 Therapeutic Procedure, Each 15 M inutes Completed 12/23/2019 99664 Electrical Stimulati on Manual, Each 15 Min, Constant Attendance Completed 12/23/2019 50527 Hot Or Cold Packs Completed 12/20/2019 58973 Therapeutic Procedure, Each 15 M inutes Completed 12/20/2019 50715 Electrical Stimulati on Manual, Each 15 Min, Constant Attendance Completed 12/20/2019 74272 Hot Or Cold Packs Completed 12/16/2019 27197 Hot Or Cold Packs Completed 12/16/2019 94205 Electrical Stimulati on Manual, Each 15 Min, Constant Attendance Completed 12/16/2019 23113 Therapeutic Procedure, Each 15 M inutes Completed 12/13/2019 11594 Therapeutic Procedure, Each 15 M inutes Completed 12/13/2019 87212 Electrical Stimulati on Manual, Each 15 Min, Constant Attendance Completed 12/13/2019 25224 Hot Or Cold Packs Completed 12/08/2019 04175 Therapeutic Procedure, Each 15 M inutes Completed 12/08/2019 99593 Therapeutic Procedure, Each 15 M inutes Completed 12/08/2019 98126 Electrical Stimulati on Manual, Each 15 Min, Constant Attendance Completed 12/08/2019 69221 Hot Or Cold Packs Completed 12/06/2019 60129 Hot Or Cold Packs Completed 12/06/2019 32738 Electrical Stimulati on Manual, Each 15 Min, Constant Attendance Completed 12/06/2019 66161 Therapeutic Procedure, Each 15 M inutes Completed 12/06/2019 52427 Therapeutic Procedure, Each 15 M inutes Completed 12/01/2019 91012 Therapeutic Procedure, Each 15 M inutes Completed 12/01/2019 88348 Hot Or Cold Packs Completed 11/29/2019 99206 Therapeutic Procedure, Each 15 M inutes Completed 11/29/2019 63043 Hot Or Cold Packs Completed 11/24/2019 96555 Physical Therapy Eval - Low Comp lexity Completed 11/08/2019 17470 Arthroscopy Shoulder Surgical Wi th Rotator Cuff Repair Completed 11/08/2019 87110 Arthroscopy Shoulder Remove Loose/Foreign Body Dist Claviculectom Completed 09/20/201931231 Inject/Drain Joint/Bursa Major C ompleted Medical Devices Description No Information Available Encounters Type Date Location Provider Dx Diagnosis Office Visit 11/16/2019 10:00a Penny Barba MD [...] of right shoulder, subsequent encounter RUBINA Conde 12/26/2019 S46.011D Strain of muscle(s) and tendon(s) of the rotator cuff of right shoulder, subsequent encounter [facility] M. [facility]pa, [facility] 12/23/2019 S46.011D Strain of muscle(s) and tendon(s) of the rotator cuff of right shoulder, subsequent encounter Isamar M. Vespa, [facility] 12/20/2019 S46.011D Strain of muscle(s) and tendon(s) of the rotator cuff of right shoulder, subsequent encounter Isamar M. Vespa, [facility] 12/16/2019 S46.011D Strain of muscle(s) and tendon(s) of the rotator cuff of right shoulder, subsequent encounter Isamar M. Vespa, [facility] 12/13/2019 S46.011D Strain of muscle(s) and tendon(s) of the rotator cuff of right shoulder, subsequent encounter Isamar M. Vespa, [facility] 12/08/2019 S46.011D Strain of muscle(s) and tendon(s) of the rotator cuff of right shoulder, subsequent encounter Isamar M. Vespa, [facility] 12/06/2019 S46.011D Strain of muscle(s) and tendon(s) of the rotator cuff of right shoulder, subsequent encounter Isamar M. Vespa, [facility] 12/01/2019 S46.011D Strain of muscle(s) and tendon(s) of the rotator cuff of right shoulder, subsequent encounter Isamar M. Vespa, [facility] 11/29/2019 S46.011D Strain of muscle(s) and tendon(s) of the rotator cuff of right shoulder, subsequent encounter Isamar M. Vespa, [facility] 11/24/2019 S46.011D Strain of muscle(s) [...] encounter Max Barba MD Plan of Treatment 01/05/2020 - Max Barba MD* S46.011D Strain [...] PT- RT SHOULDER OK TO [facility] 3 MONTHS AFTER SURGERY. PASSED TO PT DEPT. Created [facility] [address] [address] [phone] Wei Barba MD SURGERY- RT SHOULDER [id number] [id number] OK TO [facility] PER MTGS. (FULL THICKNESS TEAR) PASSED TO SURGERY. Created [facility] [address] [address] [phone] Wei Barba MD DME RT SHOULDER ARC PILLOW OK TO [facility] HERE. Created [facility] [address] [address] [phone]
--- OUTSIDE RECORDS SUMMARY | 2020-03-05 15:22 | CCD ---
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 Name Role Phone Wei Childs Leonid PELLET PREPARATION OPERATOR Unavailable Unavailable Barter, Wei Leonid PELLET PREPARATION OPERATOR Unavailable Unavailable Barter, Wei Leonid PELLET PREPARATION OPERATOR Unavailable Unavailable Barter, Wei Leonid PELLET PREPARATION OPERATOR Unavailable Unavailable Barter, Wei Leonid PELLET PREPARATION OPERATOR Unavailable Unavailable Barter, Wei Leonid PELLET PREPARATION OPERATOR Unavailable Unavailable Barter, D Leonid PELLET PREPARATION OPERATOR Unavailable Unavailable Barter, D Leonid PELLET PREPARATION OPERATOR Unavailable Unavailable Barter, D Leonid PELLET PREPARATION OPERATOR Unavailable Unavailable Barter, D Leonid PELLET PREPARATION OPERATOR Unavailable Unavailable Barter, D Leonid PELLET PREPARATION OPERATOR Unavailable Unavailable Barter, D Leonid PELLET PREPARATION OPERATOR Unavailable Unavailable Barter, D Leonid PELLET PREPARATION OPERATOR Unavailable Unavailable Barter, D Leonid PELLET PREPARATION OPERATOR Unavailable Unavailable Barter, D Leonid PELLET PREPARATION OPERATOR Unavailable Unavailable Barter, D Leonid PELLET PREPARATION OPERATOR Unavailable Unavailable Barter, D Leonid PELLET PREPARATION OPERATOR Unavailable Unavailable Barter, D Leonid PELLET PREPARATION OPERATOR Unavailable Unavailable Barter, Wei Leonid PELLET PREPARATION OPERATOR Unavailable Unavailable Barter, D Leonid PELLET PREPARATION OPERATOR Unavailable Unavailable Barter, D Leonid PELLET PREPARATION OPERATOR Unavailable Unavailable Barter, D Leonid PELLET PREPARATION OPERATOR Unavailable Unavailable Barter, D Leonid PELLET PREPARATION OPERATOR Unavailable Unavailable Barter, D Leonid PELLET PREPARATION OPERATOR Unavailable Unavailable Barter, D Leonid PELLET PREPARATION OPERATOR Unavailable Unavailable Barter, D Leonid PELLET PREPARATION OPERATOR Unavailable Unavailable Barter, D Leonid PELLET PREPARATION OPERATOR Unavailable Unavailable Barter, D Leonid PELLET PREPARATION OPERATOR Unavailable Unavailable Barter, D Leonid PELLET PREPARATION OPERATOR Unavailable Unavailable Barter, D Leonid PELLET PREPARATION OPERATOR Unavailable Unavailable Barter, D Leonid PELLET PREPARATION OPERATOR Unavailable Unavailable Barter, D Leonid PELLET PREPARATION OPERATOR Unavailable Unavailable Barter, D Leonid PELLET PREPARATION OPERATOR Unavailable Unavailable Barter, D Leonid PELLET PREPARATION OPERATOR Unavailable Unavailable Barter, D Leonid PELLET PREPARATION OPERATOR Unavailable Unavailable Barter, D Leonid PELLET PREPARATION OPERATOR Unavailable Unavailable Barter, D Leonid PELLET PREPARATION OPERATOR Unavailable Unavailable Barter, D Leonid PELLET PREPARATION OPERATOR Unavailable Unavailable Barter, D Leonid PELLET PREPARATION OPERATOR Unavailable Unavailable Barter, D Leonid PELLET PREPARATION OPERATOR Unavailable Unavailable Barter, D Leonid PELLET PREPARATION OPERATOR Unavailable Unavailable Barter, D Leonid PELLET PREPARATION OPERATOR Unavailable Unavailable Barter, D Leonid PELLET PREPARATION OPERATOR Unavailable Unavailable Barter, D Leonid PELLET PREPARATION OPERATOR Unavailable Unavailable Barter, D Leonid PELLET PREPARATION OPERATOR Unavailable Unavailable Barter, D Leonid PELLET PREPARATION OPERATOR Unavailable Unavailable Barter, D Leonid PELLET PREPARATION OPERATOR Unavailable Unavailable Barter, D Leonid PELLET PREPARATION OPERATOR Unavailable Unavailable Barter, D Leonid PELLET PREPARATION OPERATOR Unavailable Unavailable Barter, D Leonid PELLET PREPARATION OPERATOR Unavailable Unavailable Barter, D Leonid PELLET PREPARATION OPERATOR Unavailable Unavailable Barter, D Leonid PELLET PREPARATION OPERATOR Unavailable Unavailable Barter, D Leonid PELLET PREPARATION OPERATOR Unavailable Unavailable Barter, D Leonid PELLET PREPARATION OPERATOR Unavailable Unavailable Cj, Stacy Jaquez MD Unavailable Unavailable Cj, Stacy Jaquez MD Unavailable Unavailable Cj, Stacy Jaquez MD Unavailable Unavailable Cj, Stacy Jaquez MD Unavailable Unavailable Cj, Stacy Jaquez MD Unavailable Unavailable Cj, Stacy Jaquez MD Unavailable Unavailable Cj, Stacy Jaquez MD Unavailable Unavailable Cj, Stacy Jaquez MD Unavailable Unavailable CjStacy pulido MD Unavailable Unavailable CjStacy pulido MD Unavailable Unavailable CjStacy pulido MD Unavailable Unavailable CjStacy pulido MD Unavailable Unavailable CjStacy pulido MD Unavailable Unavailable CjStacy pulido MD Unavailable Unavailable CjStacy pulido MD Unavailable Unavailable CjStacy pulido MD Unavailable Unavailable CjStacy pulido MD Unavailable Unavailable CjStacy pulido MD Unavailable Unavailable CjStacy pulido MD Unavailable Unavailable CjStacy pulido MD Unavailable Unavailable CjStacy pulido MD Unavailable Unavailable CjStacy pulido MD Unavailable Unavailable CjStacy pulido MD Unavailable Unavailable CjStacy pulido MD Unavailable Unavailable CjStacy MD Unavailable Unavailable CjStacy MD Unavailable Unavailable Stacy Corona MD Unavailable Unavailable Cj, Stacy Jaquez MD Unavailable Unavailable Cj, Stacy Jaquez MD Unavailable Unavailable Cj, Stacy Jaquez MD Unavailable Unavailable Cj, Stacy Jaquez MD Unavailable Unavailable Cj, Stacy Jaquez MD Unavailable Unavailable Cj, Stacy Jaquez MD Unavailable Unavailable Cj, Stacy Jaquez MD Unavailable Unavailable Stacy Corona MD Unavailable Unavailable Cj, Stacy Jaquez MD Unavailable Unavailable Cj, Stacy Jaquez MD Unavailable Unavailable Stacy Corona MD Unavailable Unavailable Fish, [facility], PA-C Unavailable Unavailabl e Fish, [facility], PA-C Unavailable Unavailabl e Fish, [facility], PA-C Unavailable Unavailabl e Fish, [facility], PA-C Unavailable Unavailabl e Fish, [facility], PA-C Unavailable Unavailabl e Fish, [facility], PA-C Unavailable Unavailabl e Fish, [facility], PA-C Unavailable Unavailabl e Fish, [facility], PA-C Unavailable Unavailabl e Fish, [facility], PA-C Unavailable Unavailabl e Fish, [facility], PA-C Unavailable Unavailabl e Fish, [facility], PA-C Unavailable Unavailabl e Fish, [facility], PA-C Unavailable Unavailabl e Fish, [facility], PA-C Unavailable Unavailabl e Fish, [facility], PA-C Unavailable Unavailabl e Fish, [facility], PA-C Unavailable Unavailabl e Fish, [facility], PA-C Unavailable Unavailabl e Fish, [facility], PA-C Unavailable Unavailabl e Fish, [facility], PA-C Unavailable Unavailabl e Fish, [facility], PA-C Unavailable Unavailabl e Fish, [facility], PA-C Unavailable Unavailabl e Fish, [facility], PA-C Unavailable Unavailabl e Fish, [facility], PA-C Unavailable Unavailabl e Fish, [facility], PA-C Unavailable Unavailabl e Fish, [facility], PA-C Unavailable Unavailabl e Fish, [facility], PA-C Unavailable Unavailabl e Fish, [facility] Unavailable Unavailabl e Fish, [facility] Unavailable Unavailabl e Fish, [facility] Unavailable Unavailabl e Fish, [facility] Unavailable Unavailabl e Fish, [facility] Unavailable Unavailabl e Fish, [facility] Unavailable Unavailabl e Fish, [facility] Unavailable Unavailabl e Fish, [facility], [facility] Unavailable Unavailabl e Wei Barba MD Unavailable Unavailable VanjaamWei MD Unavailable Unavailable VanjaamWei MD Unavailable Unavailable VanjaamWei MD Unavailable Unavailable VanWei hong MD Unavailable Unavailable Wei Barba MD Unavailable Unavailable Wei Barba MD Unavailable Unavailable Wei Barba MD Unavailable Unavailable Wei Barba MD Unavailable Unavailable Wei Barba MD Unavailable Unavailable Wei Barba MD Unavailable Unavailable Wei Barba MD Unavailable Unavailable Wei Barba MD Unavailable Unavailable Wei Barba MD Unavailable Unavailable Wei Barba MD Unavailable Unavailable Wei Barba MD Unavailable Unavailable Wei Barba MD Unavailable Unavailable Wei Barba MD Unavailable Unavailable Wei Barba MD Unavailable Unavailable Wei Barba MD Unavailable Unavailable Wei Barba MD Unavailable Unavailable Wei Barba MD Unavailable Unavailable Wei Barba MD Unavailable Unavailable Wei Barba MD Unavailable Unavailable Wei Barba MD Unavailable Unavailable Wei Barba MD Unavailable Unavailable Wei Barba MD Unavailable Unavailable Wei Barba MD Unavailable Unavailable Wei Barba MD Unavailable Unavailable Wei Barba MD Unavailable Unavailable Wei Barba MD Unavailable Unavailable Wei Barba MD Unavailable Unavailable Wei Barba MD Unavailable Unavailable Wei Barba MD Unavailable Unavailable Wei Barba MD Unavailable Unavailable Wei Barba MD Unavailable Unavailable Wei Barba MD Unavailable Unavailable VaneenenaamWei MD Unavailable Unavailable VaneenenaamWei MD Unavailable Unavailable VaneenenaamWei MD Unavailable Unavailable Vaneenenaam, Wei Mon MD Unavailable Unavailable Vaneenenaam, Wei Mon MD Unavailable Unavailable Vaneenenaam, Wei Mon MD Unavailable Unavailable Vaneenenaam, Wei Mon MD Unavailable Unavailable VaneenenaamWei MD Unavailable Unavailable Vaneenenaam, Wei Mon MD Unavailable Unavailable VaneenenaamWei MD Unavailable Unavailable Vaneenenaam, Wei Mon MD Unavailable Unavailable Vaneenenaam, Wei Mon MD Unavailable Unavailable Vaneenenaam, Wei Mon MD Unavailable Unavailable Vaneenenaam, Wei Mon MD Unavailable Unavailable Vaneenenaam, Wei Mon MD Unavailable Unavailable Vaneenenaam, Wei Mon MD Unavailable Unavailable Vaneenenaam, Wei Mon MD Unavailable Unavailable Vaneenenaam, Wei Mon MD Unavailable Unavailable Vaneenenaam, Wei Mon MD Unavailable Unavailable VaneenenaamWei MD Unavailable Unavailable Vaneenenaam, Wei Mon MD Unavailable Unavailable VaneenenaamWei MD Unavailable Unavailable Vaneenenaam, Wei Mon MD Unavailable Unavailable Vaneenenaam, Wei Mon MD Unavailable Unavailable Vaneenenaam, Wei Mon MD Unavailable Unavailable VaneenabdoulamWei MD Unavailable Unavailable Vaneenenaam, Wei Mon MD Unavailable Unavailable VaneenenaamWei MD Unavailable Unavailable Vaneenenaam, Wei Mon MD Unavailable Unavailable VaneenenaamWei MD Unavailable Unavailable Vaneenenaam, Wei Mon MD Unavailable Unavailable VaneenenaamWei MD Unavailable Unavailable VaneenenaamWei MD Unavailable Unavailable VaneenenaamWei MD Unavailable Unavailable VaneenenaamWei MD Unavailable Unavailable VaneenenaamWei MD Unavailable Unavailable VaneenenaamWei MD Unavailable Unavailable VaneenenaamWei MD Unavailable Unavailable VaneenenaamWei MD Unavailable Unavailable VaneenabdoulamWei MD Unavailable Unavailable VanpatriciaenaamWei MD Unavailable Unavailable VaneenenaamWei MD Unavailable Unavailable VaneenenaamWei MD Unavailable Unavailable VaneenenaamWei MD Unavailable Unavailable VaneenenaamWei MD Unavailable Unavailable VaneenabdoulamWei MD Unavailable Unavailable VaneenabdoulamWei MD Unavailable Unavailable VaneenenaamWei MD Unavailable Unavailable VaneenenaamWei MD Unavailable Unavailable VaneenenaamWei MD Unavailable Unavailable VaneenabdoulamWei Peter MD Unavailable Unavailable Foss, [facility] Unavailable Unavailable Foss, [facility] Unavailable Unavailable Foss, [facility] Unavailable Unavailable Foss, [facility] Unavailable Unavailable Foss, [facility] Unavailable Unavailable Foss, [facility] Unavailable Unavailable Foss, [facility] Unavailable Unavailable Foss, [facility] Unavailable Unavailable Foss, [facility] Unavailable Unavailable Foss, [facility] Unavailable Unavailable Foss, [facility] Unavailable Unavailable Wei Barba MD Unavailable Unavailable Wei Barba MD Unavailable Unavailable Wei Barba MD Unavailable Unavailable Wei Barba MD Unavailable Unavailable Wei Barba MD Unavailable Unavailable Wei Barba MD Unavailable Unavailable Wei Barba MD Unavailable Unavailable Wei Barba MD Unavailable Unavailable Wei Barba MD Unavailable Unavailable Wei Barba MD Unavailable Unavailable Wei Barba MD Unavailable Unavailable Wei Barba MD Unavailable Unavailable Wei Barba MD Unavailable Unavailable Wei Barba MD Unavailable Unavailable Wei Barba MD Unavailable Unavailable Wei Barba MD Unavailable Unavailable Wei Barba MD Unavailable Unavailable Wei Barba MD Unavailable Unavailable Wei Barba MD Unavailable Unavailable Wei Barba MD Unavailable Unavailable Wei Barba MD Unavailable Unavailable Wei Barba MD Unavailable Unavailable Wei Barba MD Unavailable Unavailable Wei Barba MD Unavailable Unavailable Wei Barba MD Unavailable Unavailable Wei Barba MD Unavailable Unavailable Wei Barba MD Unavailable Unavailable Wei Barba MD Unavailable Unavailable Wei Barba MD Unavailable Unavailable Wei Barba MD Unavailable Unavailable Wei Barba MD Unavailable Unavailable Wei Barba MD Unavailable Unavailable Wei Barba MD Unavailable Unavailable Wei Barba MD Unavailable Unavailable Wei Barba MD Unavailable Unavailable Wei Barba MD Unavailable Unavailable Wei Barba MD Unavailable Unavailable Wei Braba MD Unavailable Unavailable VaneenabdoulamWei MD Unavailable Unavailable VaneenabdoulamWei MD Unavailable Unavailable VaneenabdoulamWei MD Unavailable Unavailable VanjaamWei MD Unavailable Unavailable VaneenabdoulamWei MD Unavailable Unavailable VaneenWei romero MD Unavailable Unavailable Re-disclosure Warning The records that you are about to access may contain information from federally-assisted alcohol or drug abuse programs. If such information is present, then the following federally mandated warning applies: This information has been disclosed to you from records protected by federal confidentiality rules (42 CFR part 2). The federal rules prohibit you from making any further disclosure of this information unless further disclosure is expressly permitted by the written consent of the person to whom it pertains or as otherwise permitted by 42 CFR part 2. A general authorization for the release of medical or other information is NOT sufficient for this purpose. The Federal rules restrict any use of the information to criminally investigate or prosecute any alcohol or drug abuse patient.The records that you are about to access may contain highly sensitive health information, the redisclosure of which is protected by Article 27-F of the [facility] Public Health law. If you continue you may have access to information: Regarding HIV / AIDS; Provided by facilities licensed or operated by the [facility] Office of Mental Health; or Provided by the [facility] Office for People With Developmental Disabilities. If such information is present, then the following [facility] mandated warning applies: This information has been disclosed to you from confidential records which are protected by state law. State law prohibits you from making any further disclosure of this information without the specific written consent of the person to whom it pertains, or as otherwise permitted by law. Any unauthorized further disclosure in violation of state law may result in a fine or snf sentence or both. A general authorization for the release of medical or other information is NOT sufficient authorization for further disc losure. Family History Family Member Name Family Member Gender Family Member Status Date o f Status Description Data Source(s) Unknown Male Problem MEDENT ([facility]) Unknown Unknown Problem MEDENT ([facility]) Unknown Unknown Problem MEDENT ([facility]) Encounters Encounter Providers Location Date Indications Data Source(s ) Outpatient Attender: Wei Barba MD Physical Therap y 02/14/2020 10:30:00 AM EST [facility] ([facility]) [place] [address] [place] [address] 01/23/2020 12:00:00 AM EST eCW1 ([facility]) ( [facility]) [facility] [address] [place] [address] 01/20/2020 12:00:00 AM EST eCW1 ([facility]) [place] [address] [place] [address] 01/16/2020 12:00:00 AM EST eCW1 ([facility]) Outpatient Attender: Ana campos 01/11/2020 01:35:00 PM EST [facility] ([facility]) Office Visit Attender: Wei Barba MD Physical Therap y 01/05/2020 12:00:00 PM EST MED[facility] ([facility]) Unknown [address] [place] [address] 12/06/2019 12:00:00 AM EDT eCW1 ([facility]) Office Visit Attender: Wei Barba MD Physical Therap y 11/16/2019 10:00:00 AM EDT MEDENT ([facility]) Outpatient Attender: Mindy HECK PA-C Physical Therapy 09/20/2019 11:15:00 AM EDT MEDENT ([facility]) Office Visit, Est Pt., Level 2 FC [address] [place] [address] 09/09/2019 12:00:00 AM EDT eCW1 ([facility]) [facility] [address] [place] [phone] 08/09/2019 12:00:00 AM EDT eCW1 ([facility]) Outpatient Attender: Wei Barba MD Physical Therap y 07/13/2019 08:30:00 AM EDT MEDENT ([facility]) [facility] [place] [address] [place] [address] 07/12/2019 12:00:00 AM EDT eCW1 ([facility]) Outpatient Attender: Wei Barba MDConsultant: Leonid THOMAS 07/04/2019 09:39:00 AM EDT - 07/04/2019 10:39:00 AM EDT [facility] Patient discharged. Outpatient Referrer: Wei Barba MD 06/29/2019 08: 34:00 AM EDT [facility] Outpatient Referrer: Wei Barba MD 06/22/2019 05: 01:00 PM EDT [facility] Outpatient Referrer: Leonid Corona MD 06/22/2019 05:00:00 PM EDT [facility] [address] [place] [address] 06/21/2019 12:00:00 AM EDT eCW1 ([facility]) [facility] [address] [place] [phone] 06/21/2019 12:00:00 AM EDT eCW1 ([facility]) Outpatient Attender: Wei Barba MD Physical Therap y 06/20/2019 10:00:00 AM EDT MEDENT ([facility]) Outpatient Attender: Wei Barba MD Physical Therap y 05/06/2019 01:45:00 PM EDT MEDENT ([facility]) Outpatient Attender: Ana campos 03/09/2019 10:00:00 AM EST MEDENT ([facility]) [facility] [address] [place] [phone] 02/28/2019 12:00:00 AM EST eCW1 ([facility]) [facility] [address] [place] [address] 02/28/2019 12:00:00 AM EST eCW1 ([facility]) [facility] GME Resident [address] [place] [phone] 02/25/2019 12:00:00 AM EST eCW1 ([facility]) Outpatient Attender: Ana Epps Alexander Radha andres 01/17/2019 01:35:00 PM EST MEDENT ([facility]) Immunizations Vaccine Date Status Description Data Source(s) Zoster 50mcg/0.5mL (Shingrix) 02/25/2019 03:57:00 PM EST completed eCW1 ([facility]) Zoster 50mcg/0.5mL (Shingrix) 02/25/2019 03:57:00 PM EST completed eCW1 ([facility]) Zoster 50mcg/0.5mL (Shingrix) 02/25/2019 03:57:00 PM EST completed eCW1 ([facility]) Zoster 50mcg/0.5mL (Shingrix) 02/25/2019 03:57:00 PM EST completed eCW1 ([facility]) Zoster 50mcg/0.5mL (Shingrix) 02/25/2019 03:57:00 PM EST completed eCW1 ([facility]) Zoster 50mcg/0.5mL (Shingrix) 02/25/2019 03:57:00 PM EST completed eCW1 ([facility]) pneumococcal polysaccharide PPV23 02/25/2019 03:56:00 PM EST comple zak eCW1 ([facility]) pneumococcal polysaccharide PPV23 02/25/2019 03:56:00 PM EST comple zak eCW1 ([facility]) pneumococcal polysaccharide PPV23 02/25/2019 03:56:00 PM EST comple zak eCW1 ([facility]) pneumococcal polysaccharide PPV23 02/25/2019 03:56:00 PM EST comple zak eCW1 ([facility]) pneumococcal polysaccharide PPV23 02/25/2019 03:56:00 PM EST comple zak eCW1 ([facility]) pneumococcal polysaccharide PPV23 02/25/2019 03:56:00 PM EST comple zak eCW1 ([facility]) Medications Medication Brand Name Start Date Product Form Dose Route Admi nistrative Instructions Pharmacy Instructions Status Indications Reaction Description Data Source(s) Fluconazole 200 MG Oral Tablet [Diflucan] Diflucan 200 MG Di flucan 200 MG 01/23/2020 12:00:00 AM EST 1.0 {tablet} active Diflucan 200 MG eCW1 ([facility]) Fluconazole 200 MG Oral Tablet [Diflucan] Diflucan 200 MG Di flucan 200 MG 01/23/2020 12:00:00 AM EST 1.0 {tablet} active Diflucan 200 MG eCW1 ([facility]) silver sulfadiazine 10 MG/ML Topical Cream Silver Sulfadiazi ne 01/11/2020 12:00:00 AM EST active M EDENT ([facility]) tramadol hydrochloride 50 MG Oral Tablet Tramadol HCL 12/21/2019 12:00:00 AM EST active MEDENT ([facility]) Acetaminophen 325 MG / Hydrocodone Bitartrate 5 MG Ora l Tablet Hydrocodone-Acetaminophen 11/07/2019 12:00:00 AM EDT active MEDENT ([facility]) silver sulfadiazine 10 MG/ML Topical Cream Silver Sulfadiazi ne 03/09/2019 12:00:00 AM EST active M EDENT ([facility]) Loratadine 10 MG Oral Tablet Loratadine 01/17/2019 12:00:00 AM EST completed MEDENT ([facility]) Amoxicillin 875 MG / Clavulanate 125 MG Oral Tablet Am oxicillin/Clavulanate Potassium 01/17/2019 12:00:00 AM EST ORAL completed MEDENT ([facility]) Insurance Providers Payer name Policy type / Coverage type Policy ID Covered republican ID Covered republican's relationship to green Policy Green Plan Information EMEDNY [id number] SP [id number] MEDICARE COMPLETE [id number] SP [id number] MEDICARE COMPLETE-[facility] O [id number] S [id number] MEDICAID M [id number] STATE INSURANCE FUND [id number] SP [id number] WORKMENS COMP AND NO FAULT OTHER -O/P [id number] 18 [id number] STATE INSURANCE FUND O [id number] S [id number] [facility] MCRO [id number] SP [id number] MEDICAID [id number] SP [id number] [facility](MCAID) O [id number] S [id number] ANSI-Commercial [id number] ANSI-Medicare Part B [id number] ANSI-Medicaid [id number] ANSI-Medicare Part B [id number] Workers Comp (WC) Workers Compensation [id number] Self [id number] [facility] Medicare Dual Complet Commercial [id number] Self [id number] Medicaid [facility] Part B [id number] Self [id number] ANSI-Commercial [id number] ANSI-Medicaid [id number] ANSI-Medicare Part B [id number] ANSI-Medicare Part B [id number] [facility] Health Maintenance Organization (HMO) [id number] Self [id number] Workers Comp (WC) Workers Compensation [id number] Self [id number] [facility] Medicare Dual Complet Commercial [id number] Self [id number] ANSI-Medicaid [id number] ANSI-Medicare Part B [id number] ANSI-Medicare Part B [id number] ANSI-Commercial [id number] ANSI-Medicare Part B [id number] ANSI-Medicaid [id number] ANSI-Commercial [id number] ANSI-Medicare Part B [id number] ANSI-Medicaid [id number] ANSI-Medicare Part B [id number] ANSI-Commercial [id number] ANSI-Medicare Part B [id number] [facility] Health Maintenance Organization (O) [id number] Self [id number] Workers Comp (WC) Workers Compensation [id number] Self [id number] [facility] Medicare Dual Complet Commercial [id number] Self [id number] Workers Comp (WC) Workers Compensation [id number] Self [id number] [facility] Medicare Dual Complet Commercial [id number] Self [id number] ANSI-Commercial [id number] ANSI-Medicaid [id number] ANSI-Medicare Part B [id number] ANSI-Medicare Part B [id number] Workers Comp (WC) Workers Compensation [id number] Self [id number] [facility] Medicare Dual Complet Commercial [id number] Self [id number] ANSI-Medicare Part B [id number] ANSI-Medicaid [id number] ANSI-Commercial [id number] [facility] [id number] Workers Comp (WC) Workers Compensation [id number] Self [id number] [facility] Medicare Dual Complet Commercial [id number] Self [id number] Workers Comp (WC) Workers Compensation [id number] Self [id number] [facility] Medicare Dual Complet Commercial [id number] Self [id number] Workers Comp (WC) Workers Compensation [id number] Self [id number] [facility] Medicare Dual Complet Commercial [id number] Self [id number] Workers Comp (WC) Workers Compensation [id number] Self [id number] [facility] Medicare Dual Complet Commercial [id number] Self [id number] ANSI-Medicare Part B [id number] ANSI-Medicaid [id number] ANSI-Medicare Part B [id number] ANSI-Commercial [id number] Workers Comp (WC) Workers Compensation [id number] Self [id number] [facility] Medicare Dual Complet Commercial [id number] Self [id number] Workers Comp (WC) Workers Compensation [id number] Self [id number] [facility] Medicare Dual Complet Commercial [id number] Self [id number] Workers Comp (WC) Workers Compensation [id number] Self [id number] [facility] Medicare Dual Complet Commercial [id number] Self [id number] [facility] Health Maintenance Organization (O) [id number] Self [id number] [employer] Commercial [id number] S elf [id number] ANSI-Commercial [id number] ANSI-Medicare Part B [id number] ANSI-Medicare Part B [id number] ANSI-Medicaid [id number] ANSI-Commercial [id number] ANSI-Medicare Part B [id number] ANSI-Medicare Part B [id number] ANSI-Medicaid [id number] ANSI-Medicaid [id number] ANSI-Commercial [id number] ANSI-Medicare Part B [id number] ANSI-Medicare Part B [id number] MEDICARE COMPLETE [id number] SP [id number] [facility] [id number] SP [id number] ANSI-Medicare Part B [id number] ANSI-Medicare Part B [id number] ANSI-Commercial [id number] ANSI-Medicaid [id number] ANSI-Commercial [id number] ANSI-Medicare Part B [id number] ANSI-Medicare Part B [id number] ANSI-Medicaid [id number] ANSI-Medicaid [id number] ANSI-Commercial [id number] ANSI-Medicare Part B [id number] ANSI-Medicare Part B [id number] ANSI-Medicare Part B [id number] ANSI-Medicaid [id number] ANSI-Medicare Part B [id number] ANSI-Commercial [id number] ANSI-Medicare Part B [id number] ANSI-Medicaid [id number] ANSI-Commercial [id number] ANSI-Medicare Part B [id number] ANSI-Commercial [id number] ANSI-Medicare Part B [id number] ANSI-Medicaid [id number] ANSI-Medicare Part B [id number] ANSI-Medicare Part B [id number] ANSI-Commercial [id number] ANSI-Medicaid [id number] ANSI-Medicare Part B [id number] [facility] Commercial [id number] Self [id number] 3 [facility] Health Maintenance Organization ([facility]) [id number] Self [id number] ANSI-Medicare Part B [id number] ANSI-Medicare Part B [id number] ANSI-Commercial [id number] ANSI-Medicaid [id number] MEDICAID [id number] ANSI-Commercial [id number] ANSI-Medicare Part B [id number] ANSI-Medicaid [id number] ANSI-Medicare Part B [id number] [facility] [id number] SP [id number] MEDICAID -RECURRING [id number] MEDICARE PART A-RECURRING [id number] A 18 [id number] A MEDICAID [id number] SP [id number] [facility] [id number] SP [id number] MEDICARE COMPLETE-[facility] O [id number] S [id number] [facility] Health Maintenance Organization (HMO) [id number] Self [id number] [employer] Commercial [id number] Self [id number] 3 [facility] Health Maintenance Organization (HMO) [id number] Self [id number] [facility] [id number] SP [id number] O UNAVAILABLE UNAVAILA BLE [facility] Health Maintenance Organization (HMO) [id number] Self [id number] [facility] MEDICARE DUAL G [id number] Self [id number] MEDICAID M [id number] Self [id number] MEDICARE A [id number] Self [id number] A MEDICARE COMPLETE [id number] SP [id number] [facility] Medigap Part B [id number] Self [id number] [place] Medigap Part B [id number] Self [id number] Medicare [place] Medicare Primary [id number] Self [id number] [facility] Health Maintenance Organization (HMO) [id number] Self [id number] [place] Self Medicare Natl Gov't Servi Medicare Primary Self OTHER1 NOTFORTODAYSVISIT SP NO TFORTODAYSVISIT MEDICAID [id number] SP [id number] MEDICARE [id number] SP [id number] A MEDICAID [id number] [place] [id number] MEDICARE [id number] [place] [id number] A [employer] PPO O [id number] S [id number] [place] Medigap Part B Self Medicare [place] Medicare Primary Self [id number] A Problems, Conditions, and Diagnoses Code Display Name Description Problem Type Effective Dates Data Source(s) Y41303 Other synovitis and tenosynovitis, right shoulder Other synovitis and tenosynovitis, right shoulder Diagnosis 07/04/2019 09:39:00 AM EDT [facility] [id number] Bursitis of right shoulder Bursitis of right shoulder Diagnosis 07/04/2019 09:39:00 AM EDT [facility] [id number] Effusion, right shoulder Effusion, right shoulder Diag nosis 07/04/2019 09:39:00 AM EDT [facility] [id number] Complete rotator cuff tear o r rupture of right shoulder, not specified as traumatic Complete rotator cuff tear or rupture of right shoulder, not specified as traumatic Diagnosis 07/04/2019 09:39:00 AM EDT [facility] Surgeries/Procedures Procedure Description Date Indications Data Source(s) APPLICATION MODALITY 1/> AREAS HOT/COLD PACKS 02/26/19 21 12:00:00 AM EST [facility] ([facility]) APPL MODALITY 1/> AREAS ELEC STIMJ EA 15 MIN 1 12:00:00 AM EST [facility] ([facility] ) THERAPEUTIC PX 1/> AREAS EACH 15 MIN EXERCISES 021 12:00:00 AM EST [facility] ([facility] ) APPLICATION MODALITY 1/> AREAS HOT/COLD PACKS 02/23/19 21 12:00:00 AM EST [facility] ([facility]) APPL MODALITY 1/> AREAS ELEC STIMJ EA 15 MIN 1 12:00:00 AM EST [facility] ([facility]) APPLICATION MODALITY 1/> AREAS HOT/COLD PACKS 02/19/19 21 12:00:00 AM EST [facility] ([facility]) APPL MODALITY 1/> AREAS ELEC STIMJ EA 15 MIN 1 12:00:00 AM EST [facility] ([facility]) THERAPEUTIC PX 1/> AREAS EACH 15 MIN EXERCISES 021 12:00:00 AM EST [facility] ([facility]) THERAPEUTIC PX 1/> AREAS EACH 15 MIN EXERCISES 021 12:00:00 AM EST [facility] ([facility]) APPL MODALITY 1/> AREAS ELEC STIMJ EA 15 MIN 0 12:00:00 AM EST [facility] ([facility]) APPLICATION MODALITY 1/> AREAS HOT/COLD PACKS 02/06/20 20 12:00:00 AM EST [facility] ([facility] ) THERAPEUTIC PX 1/> AREAS EACH 15 MIN EXERCISES 12:00:00 AM EST [facility] ([facility] ) THERAPEUTIC PX 1/> AREAS EACH 15 MIN EXERCISES 12:00:00 AM EST [facility] ([facility] ) THERAPEUTIC PX 1/> AREAS EACH 15 MIN EXERCISES 12:00:00 AM EST [facility] ([facility] ) APPLICATION MODALITY 1/> AREAS HOT/COLD PACKS 02/02/20 20 12:00:00 AM EST [facility] ([facility] ) APPL MODALITY 1/> AREAS ELEC STIMJ EA 15 MIN 0 12:00:00 AM EST [facility] ([facility] ) THERAPEUTIC PX 1/> AREAS EACH 15 MIN EXERCISES 12:00:00 AM EST [facility] ([facility] ) THERAPEUTIC PX 1/> AREAS EACH 15 MIN EXERCISES 12:00:00 AM EST [facility] ([facility] ) THERAPEUTIC PX 1/> AREAS EACH 15 MIN EXERCISES 12:00:00 AM EST [facility] ([facility] ) THERAPEUTIC PX 1/> AREAS EACH 15 MIN EXERCISES 12:00:00 AM EST [facility] ([facility] ) THERAPEUTIC PX 1/> AREAS EACH 15 MIN EXERCISES 12:00:00 AM EST [facility] ([facility] ) APPL MODALITY 1/> AREAS ELEC STIMJ EA 15 MIN 0 12:00:00 AM EST [facility] ([facility] ) APPLICATION MODALITY 1/> AREAS HOT/COLD PACKS 01/30/20 20 12:00:00 AM EST [facility] ([facility]) APPLICATION MODALITY 1/> AREAS HOT/COLD PACKS 01/26/20 12:00:00 AM EST [facility] ([facility] ) APPL MODALITY 1/> AREAS ELEC STIMJ EA 15 MIN 0 12:00:00 AM EST [facility] ([facility] ) THERAPEUTIC PX 1/> AREAS EACH 15 MIN EXERCISES 12:00:00 AM EST [facility] ([facility] ) THERAPEUTIC PX 1/> AREAS EACH 15 MIN EXERCISES 12:00:00 AM EST [facility] ([facility] ) THERAPEUTIC PX 1/> AREAS EACH 15 MIN EXERCISES 12:00:00 AM EST [facility] ([facility] ) THERAPEUTIC PX 1/> AREAS EACH 15 MIN EXERCISES 12:00:00 AM EST [facility] ([facility] ) APPL MODALITY 1/> AREAS ELEC STIMJ EA 15 MIN 0 12:00:00 AM EST [facility] ([facility] ) APPLICATION MODALITY 1/> AREAS HOT/COLD PACKS 01/23/20 20 12:00:00 AM EST [facility] ([facility] ) DRS&/DBRDMT PRTL-THKNS SIEGEL 1ST/SBSQ SMALL 01/11/2020 12:00:00 AM EST [facility] ([facility]) APPLICATION MODALITY 1/> AREAS HOT/COLD PACKS 01/02/20 12:00:00 AM EST [facility] ([facility] ) APPL MODALITY 1/> AREAS ELEC STIMJ EA 15 MIN 0 12:00:00 AM EST [facility] ([facility] ) THERAPEUTIC PX 1/> AREAS EACH 15 MIN EXERCISES 12:00:00 AM EST [facility] ([facility] ) MANUAL THERAPY TQS 1/> REGIONS EACH 15 MINUTES 12:00:00 AM EST [facility] ([facility] ) MANUAL THERAPY TQS 1/> REGIONS EACH 15 MINUTES 12:00:00 AM EST [facility] ([facility] ) THERAPEUTIC PX 1/> AREAS EACH 15 MIN EXERCISES 12:00:00 AM EST [facility] ([facility] ) APPL MODALITY 1/> AREAS ELEC STIMJ EA 15 MIN 0 12:00:00 AM EST [facility] ([facility] ) APPLICATION MODALITY 1/> AREAS HOT/COLD PACKS 12/30/19 12:00:00 AM EST [facility] ([facility] ) APPLICATION MODALITY 1/> AREAS HOT/COLD PACKS 12/26/19 12:00:00 AM EST [facility] ([facility] ) APPL MODALITY 1/> AREAS ELEC STIMJ EA 15 MIN 0 12:00:00 AM EST [facility] ([facility] ) THERAPEUTIC PX 1/> AREAS EACH 15 MIN EXERCISES 12:00:00 AM EST [facility] ([facility]) MANUAL THERAPY TQS 1/> REGIONS EACH 15 MINUTES 12:00:00 AM EST [facility] ([facility]) MANUAL THERAPY TQS 1/> REGIONS EACH 15 MINUTES 12:00:00 AM EST [facility] ([facility]) THERAPEUTIC PX 1/> AREAS EACH 15 MIN EXERCISES 12:00:00 AM EST [facility] ([facility]) APPL MODALITY 1/> AREAS ELEC STIMJ EA 15 MIN 0 12:00:00 AM EST [facility] ([facility]) APPLICATION MODALITY 1/> AREAS HOT/COLD PACKS 12/23/19 12:00:00 AM EST [facility] ([facility]) APPLICATION MODALITY 1/> AREAS HOT/COLD PACKS 12/20/19 12:00:00 AM EST [facility] ([facility]) APPL MODALITY 1/> AREAS ELEC STIMJ EA 15 MIN 0 12:00:00 AM EST [facility] ([facility]) THERAPEUTIC PX 1/> AREAS EACH 15 MIN EXERCISES 12:00:00 AM EST [facility] ([facility]) APPLICATION MODALITY 1/> AREAS HOT/COLD PACKS 12/16/19 12:00:00 AM EDT [facility] ([facility]) APPL MODALITY 1/> AREAS ELEC STIMJ EA 15 MIN 0 12:00:00 AM EDT [facility] ([facility]) THERAPEUTIC PX 1/> AREAS EACH 15 MIN EXERCISES 12:00:00 AM EDT [facility] ([facility]) THERAPEUTIC PX 1/> AREAS EACH 15 MIN EXERCISES 12:00:00 AM EDT [facility] ([facility]) APPL MODALITY 1/> AREAS ELEC STIMJ EA 15 MIN 0 12:00:00 AM EDT [facility] ([facility]) APPLICATION MODALITY 1/> AREAS HOT/COLD PACKS 12/13/19 12:00:00 AM EDT [facility] ([facility]) APPLICATION MODALITY 1/> AREAS HOT/COLD PACKS 12/08/19 20 12:00:00 AM EDT [facility] ([facility]) APPL MODALITY 1/> AREAS ELEC STIMJ EA 15 MIN 0 12:00:00 AM EDT [facility] ([facility] ) THERAPEUTIC PX 1/> AREAS EACH 15 MIN EXERCISES 12:00:00 AM EDT [facility] ([facility] ) THERAPEUTIC PX 1/> AREAS EACH 15 MIN EXERCISES 12:00:00 AM EDT [facility] ([facility] ) THERAPEUTIC PX 1/> AREAS EACH 15 MIN EXERCISES 12:00:00 AM EDT [facility] ([facility] ) THERAPEUTIC PX 1/> AREAS EACH 15 MIN EXERCISES 12:00:00 AM EDT [facility] ([facility] ) APPL MODALITY 1/> AREAS ELEC STIMJ EA 15 MIN 0 12:00:00 AM EDT [facility] ([facility] ) APPLICATION MODALITY 1/> AREAS HOT/COLD PACKS 12/06/19 20 12:00:00 AM EDT [facility] ([facility] ) APPLICATION MODALITY 1/> AREAS HOT/COLD PACKS 12/01/19 20 12:00:00 AM EDT [facility] ([facility] ) THERAPEUTIC PX 1/> AREAS EACH 15 MIN EXERCISES 12:00:00 AM EDT [facility] ([facility] ) APPLICATION MODALITY 1/> AREAS HOT/COLD PACKS 11/29/19 20 12:00:00 AM EDT [facility] ([facility] ) THERAPEUTIC PX 1/> AREAS EACH 15 MIN EXERCISES 12:00:00 AM EDT [facility] ([facility] Physical Therapy Eval - Low Complexity 11/24/2019 12:0 0:00 AM EDT [facility] ([facility] ) Arthroscopy Shoulder Remove Loose/Foreign Body Dist Clavicul ectom 11/08/2019 12:00:00 AM EDT [facility] ([facility] ) Arthroscopy Shoulder Surgical With Rotator Cuff Repair 11/08/2019 12:00:00 AM EDT [facility] ARTHROCENTESIS ASPIR&/INJECTION MAJOR JT/BURSA 12:00:00 AM EDT [facility] ([facility] ) APPLICATION MODALITY 1/> AREAS HOT/COLD PACKS 06/27/19 12:00:00 AM EDT [facility] ([facility]) THERAPEUTIC PX 1/> AREAS EACH 15 MIN EXERCISES 12:00:00 AM EDT [facility] ([facility]) THERAPEUTIC PX 1/> AREAS EACH 15 MIN EXERCISES 12:00:00 AM EDT [facility] ([facility]) MANUAL THERAPY TQS 1/> REGIONS EACH 15 MINUTES 12:00:00 AM EDT [facility] ([facility]) THERAPEUTIC PX 1/> AREAS EACH 15 MIN EXERCISES 12:00:00 AM EDT [facility] ([facility]) THERAPEUTIC PX 1/> AREAS EACH 15 MIN EXERCISES 12:00:00 AM EDT [facility] ([facility]) MANUAL THERAPY TQS 1/> REGIONS EACH 15 MINUTES 12:00:00 AM EDT [facility] ([facility]) THERAPEUTIC PX 1/> AREAS EACH 15 MIN EXERCISES 12:00:00 AM EDT [facility] ([facility]) THERAPEUTIC PX 1/> AREAS EACH 15 MIN EXERCISES 12:00:00 AM EDT [facility] ([facility]) MANUAL THERAPY TQS 1/> REGIONS EACH 15 MINUTES 12:00:00 AM EDT [facility] ([facility]) Re-Eval Of PT Established Plan Of Care 20Mins Face To Face P T/Fam 06/17/2019 12:00:00 AM EDT [facility] ([facility]) THERAPEUTIC PX 1/> AREAS EACH 15 MIN EXERCISES 12:00:00 AM EDT [facility] ([facility]) THERAPEUTIC PX 1/> AREAS EACH 15 MIN EXERCISES 12:00:00 AM EDT [facility] ([facility]) MANUAL THERAPY TQS 1/> REGIONS EACH 15 MINUTES 12:00:00 AM EDT [facility] ([facility]) THERAPEUTIC PX 1/> AREAS EACH 15 MIN EXERCISES 12:00:00 AM EDT [facility] ([facility]) THERAPEUTIC PX 1/> AREAS EACH 15 MIN EXERCISES 12:00:00 AM EDT [facility] ([facility]) MANUAL THERAPY TQS 1/> REGIONS EACH 15 MINUTES 12:00:00 AM EDT [facility] ([facility]) APPLICATION MODALITY 1/> AREAS HOT/COLD PACKS 06/07/19 12:00:00 AM EDT [facility] ([facility]) THERAPEUTIC PX 1/> AREAS EACH 15 MIN EXERCISES 12:00:00 AM EDT [facility] ([facility]) THERAPEUTIC PX 1/> AREAS EACH 15 MIN EXERCISES 12:00:00 AM EDT [facility] ([facility]) THERAPEUTIC PX 1/> AREAS EACH 15 MIN EXERCISES 12:00:00 AM EDT [facility] ([facility]) MANUAL THERAPY TQS 1/> REGIONS EACH 15 MINUTES 12:00:00 AM EDT [facility] ([facility]) APPLICATION MODALITY 1/> AREAS HOT/COLD PACKS 06/03/19 12:00:00 AM EDT [facility] ([facility]) THERAPEUTIC PX 1/> AREAS EACH 15 MIN EXERCISES 12:00:00 AM EDT [facility] ([facility]) THERAPEUTIC PX 1/> AREAS EACH 15 MIN EXERCISES 12:00:00 AM EDT [facility] ([facility]) MANUAL THERAPY TQS 1/> REGIONS EACH 15 MINUTES 12:00:00 AM EDT [facility] ([facility]) APPLICATION MODALITY 1/> AREAS HOT/COLD PACKS 06/01/19 12:00:00 AM EDT [facility] ([facility]) THERAPEUTIC PX 1/> AREAS EACH 15 MIN EXERCISES 12:00:00 AM EDT [facility] ([facility]) THERAPEUTIC PX 1/> AREAS EACH 15 MIN EXERCISES 12:00:00 AM EDT [facility] ([facility]) MANUAL THERAPY TQS 1/> REGIONS EACH 15 MINUTES 12:00:00 AM EDT [facility] ([facility]) THERAPEUTIC PX 1/> AREAS EACH 15 MIN EXERCISES 12:00:00 AM EDT [facility] ([facility]) THERAPEUTIC PX 1/> AREAS EACH 15 MIN EXERCISES 12:00:00 AM EDT [facility] ([facility]) MANUAL THERAPY TQS 1/> REGIONS EACH 15 MINUTES 12:00:00 AM EDT [facility] ([facility]) THERAPEUTIC PX 1/> AREAS EACH 15 MIN EXERCISES 12:00:00 AM EDT [facility] ([facility]) THERAPEUTIC PX 1/> AREAS EACH 15 MIN EXERCISES 12:00:00 AM EDT [facility] ([facility]) MANUAL THERAPY TQS 1/> REGIONS EACH 15 MINUTES 12:00:00 AM EDT [facility] ([facility]) Physical Therapy Eval - Low Complexity 05/19/2019 12:0 0:00 AM EDT [facility] ([facility]) APPLICATION MODALITY 1/> AREAS HOT/COLD PACKS 05/19/19 12:00:00 AM EDT [facility] ([facility]) ARTHROCENTESIS ASPIR&/INJECTION MAJOR JT/BURSA 12:00:00 AM EDT [facility] ([facility]) Office Visit, Est Pt., Level 2 FC 02/25/2019 12:00:00 AM EST [email or web address] (Formerly [facility]) IMMUNIZATION ADMIN 02/25/2019 12:00:00 AM EST eCW1 (Formerly [facility]) Shingrix 50mcg/0.5mL (Zoster) 02/25/2019 12:00:[address] eCW1 (Formerly [facility]) Pneumococcal Adult 0.5mL (Pneumovax 23) 02/25/2019 12: 00:00 AM EST eCW1 (Formerly [facility]) Results ID Date Data Source [id number] 11/03/2019 11:00:00 AM EDT [facility] ([facility]) Name Value Range Interpretation Code Description Data Vidya rce(s) Supporting Document(s) Coronavirus 2019 Nasopharygeal Laboratory test result [facility] ([facility]) This nucleic acid amplification test was developed and its performance characteristics determined by [employer]. Nucleic acid amplification tests include PCR and [...] detected) result in this assay. Performed at: [facility] [id number] Operating Room Technologist: Val Parmar MD, Phone: [phone] Not Detected ID Date Data Source [id number] 11/03/2019 11:00:00 AM EDT [facility] Name Value Range Interpretation Code Description Data Vidya rce(s) Supporting Document(s) SARS coronavirus 2 RNA [facility] This lab was ordered by [facility] and reported by [facility]. ID Date Data Source [id number] 07/18/2019 02:49:00 PM EDT [facility] ([facility]) Name Value Range Interpretation Code Description Data Vidya rce(s) Supporting Document(s) Laboratory test finding (navigational concept) Laboratory test result [facility] ([facility]) ID Date Data Source [id number] 07/05/2019 04:24:00 PM EDT [facility] [address] [place] [address] PHONE: [phone] FAX: [phone] Name .................. : SONI Cardona Acct Number.................. : [id number] ROOM. ................. : Number ................... : [id number] Stay type ............. : O/P Discharge Date......... ... : 07/04/19 Admit Date ......... : 07/04/19 Admit Phys .................... : NATALIJALauren Date of ....... : 1960 Family Phys ................... : SEAN REY Phone .................. : [phone] Age ................................ : 59 Film# .................. .:[id number] Sex ................................. : F Unsigned transcriptions are preliminary reports and do not represent a medical or legal document MRI UPP EXT ANY JT W/O CON [place] [id number] COMPLETE:07/04/19 12:[address] [facility] [id number] (REASON FOR PROCESS: pain, ? rotator cuff tear MRI OF THE RIGHT SHOULDER WITHOUT CONTRAST: FINDINGS: Acute fracture, destructive osseous lesion or osteonecrosis is not seen. Moderate osteoarthritic changes are noted at the acromioclavicular joint. AC joint osteophyte formation mildly impinges on the supraspinatus tendon outlet. A full thickness disruption is seen at the anterior two thirds of the supraspinatus tendon with torn tendon fibers that retract up to 2.1 cm. Moderate partial thickness disruption is seen involving the undersurface tendon fibers in the posterior third of the supraspinatus tendon. The infraspinatus tendon, teres minor tendon and long head of the biceps tendon are unremarkable. There is signal abnormality and thickening noted at the subscapularis tendon, consistent with intrasubstance tear and/or tendinosis. In the superior labrum anteriorly and anterior labrum superior, signal abnormality suggestive of mild tear is seen. There is a large glenohumeral joint effusion. A moderate amount of fluid is seen in the subacromial/subdeltoid bursa that is attributed to full thickness disruption of the supraspinatus. IMPRESSION: Osteoarthritic changes acromioclavicular joint with osteophyte formation mildly impinging on the supraspinatus tendon outlet. Full thickness disruption anterior two thirds of the supraspinatus tendon and partial thickness disruption posterior third of the supraspinatus tendon, as described above. Subscapularis tendinosis and/or intrasubstance tear. Large joint effusion. Moderate amount of fluid in the subacromial/subdeltoid bursa. Page 1 of 2 [facility] [address] [place] [address] PHONE: [phone] FAX: [phone] Name .................. : SONI Cardona Acct Number.................. : [id number] ROOM. ................. : MR Number ................... : [id number] Stay type ............. : O/P Discharge Date......... ... : 07/04/19 Admit Date ......... : 07/04/19 Admit Phys .................... : DEXTER Date of ....... : 1960 Family Phys ................... : SEAN LE Phone .................. : [phone] Age ................................ : 59 Film# .................. .:[id number] Sex ................................. : F Unsigned transcriptions are preliminary reports and do not represent a medical or legal document MRI UPP EXT ANY JT W/O CON RT [id number] COMPLETE:07/04/19 12:[address] [facility] [id number] (REASON FOR PROCESS: pain, ? rotator cuff tear Electronically Reviewed and Signed By Sallie Summers MD , 07/05/19 16:24, [place] Transcribe Initials: LEONID , Transcribe Date: 07/04/19 15:27, Dictation Date: Copy for: CARA MON Copy for: [address] [place] [address] REC Page 2 of 2 Name Value Range Interpretation Code Description Data Vidya rce(s) Supporting Document(s) Procedure Social History Code Duration Value Status Description Data Source(s ) Smoking 01/23/2020 12:00:00 AM EST Never Smoker completed Never S moker eCW1 (Formerly [facility]) Smoking 01/23/2020 12:00:00 AM EST Never Smoker completed Never S moker eCW1 (Formerly [facility]) Smoking 01/20/2020 12:00:00 AM EST Never Smoker completed Never S moker eCW1 (Formerly [facility]) Smoking 12/27/2019 12:00:00 AM EST Never Smoker completed Never S moker eCW1 (Formerly [facility]) Smoking 09/09/2019 12:00:00 AM EDT Never Smoker completed Never S moker eCW1 (Formerly [facility]) Vital Signs ID Date Data Source UNK Name Value Range Interpretation Code Description Data Source(s) Body temperature 96.4 [degF] 96.4 [degF] [facility] ([facility] ) Diastolic blood pressure 76 mm[Hg] 76 mm[Hg] eCW1 ([facility]ly [facility]) Systolic blood pressure 126 mm[Hg] 126 mm[Hg] e CW1 (Formerly [facility]) Body mass index (BMI) [Ratio] 28.64 kg/m2 28.64 kg/m2 eCW1 (Formerly [facility]) Body height 63.25 [in_i] 63.25 [in_i] eCW1 ([facility]) Body weight 163.0 [lb_av] 163.0 [lb_av] eCW1 (Formerly [facility]) Diastolic blood pressure 78 mm[Hg] 78 mm[Hg] eCW1 (Formerly [facility]) Systolic blood pressure 120 mm[Hg] 120 mm[Hg] e CW1 (Formerly [facility]) Body mass index (BMI) [Ratio] 29.17 kg/m2 29.17 kg/m2 eCW1 (Formerly [facility]) Body height 63.25 [in_i] 63.25 [in_i] eCW1 ([facility]) Body weight 75.3 kg 75.3 kg eCW1 ([facility]) Body weight 166 [lb_av] 166 [lb_av] eCW1 ([facility]) Body mass index (BMI) [Ratio] 28.7 kg/m2 28.7 k g/m2 [facility] ([facility]) Body height 63 [in_i] 63 [in_i] [facility] ([facility], [facility]) 5'3" Body weight 162.00 [lb_av] 162.00 [lb_av] [facility] T ([facility], [facility]) Body temperature 98.3 [degF] 98.3 [degF] [facility] ([facility]) Oxygen saturation in Arterial blood by Pulse oximetry 98 % 98 % [facility] ([facility]) Respiratory rate 16 /min 16 /min [facility] ( [facility], [facility]) Heart rate 68 /min 68 /min [facility] ([facility]) Diastolic blood pressure 85 mm[Hg] 85 mm[Hg] [facility] ([facility]) Systolic blood pressure 130 mm[Hg] 130 mm[Hg] M EDENT ([facility], [facility]) Diastolic blood pressure 70 mm[Hg] 70 mm[Hg] eCW1 ([facility]) Systolic blood pressure 120 mm[Hg] 120 mm[Hg] e CW1 ([facility]ly [facility]) Body temperature 97 [degF] 97 [degF] eCW1 ([facility]) Respiratory rate 18 /min 18 /min eCW1 ([facility]) Heart rate 80 /min 80 /min eCW1 ([facility]) Body mass index (BMI) [Ratio] 28.47 kg/m2 28.47 kg/m2 eCW1 (Formerly [facility]) Body height 63.25 [in_i] 63.25 [in_i] eCW1 ([facility]) Body weight 162 [lb_av] 162 [lb_av] eCW1 ([facility]) Body mass index (BMI) [Ratio] 26.9 kg/m2 26.9 k g/m2 [facility] ([facility] ) Body weight 152.00 [lb_av] 152.00 [lb_av] [facility] T ([facility]) Body height 63 [in_i] 63 [in_i] [facility] ([facility] ) 5'3" Body temperature 97.5 [degF] 97.5 [degF] [facility] ([facility] ) Body mass index (BMI) [Ratio] 26.6 kg/m2 26.6 k g/m2 [facility] ([facility]) Body height 63 [in_i] 63 [in_i] [facility] ([facility]) 5'3" Body weight 150.00 [lb_av] 150.00 [lb_av] MED[facility] T ([facility], [facility]) Body temperature 98.7 [degF] 98.7 [degF] [facility] ([facility]) Oxygen saturation in Arterial blood by Pulse oximetry 98 % 98 % [facility] ([facility]) Respiratory rate 16 /min 16 /min [facility] ( [facility], [facility]) Heart rate 82 /min 82 /min [facility] ([facility]) Diastolic blood pressure 77 mm[Hg] 77 mm[Hg] [facility] ([facility]) Systolic blood pressure 116 mm[Hg] 116 mm[Hg] M EDENT ([facility]) Diastolic blood pressure 70 mm[Hg] 70 mm[Hg] eCW1 ([facility]) Systolic blood pressure 120 mm[Hg] 120 mm[Hg] e CW1 ([facility]) Body temperature 97.8 [degF] 97.8 [degF] eCW1 ( [facility]) Respiratory rate 20 /min 20 /min eCW1 ([facility]) Heart rate 90 /min 90 /min eCW1 ([facility]) Body mass index (BMI) [Ratio] 27.24 kg/m2 27.24 kg/m2 eCW1 ([facility]) Body height 63.25 [in_us] 63.25 [in_us] eCW1 (Formerly [facility]) Body weight Measured 155 [lb_av] 155 [lb_av] eC W1 ([facility]ly [facility]) Body mass index (BMI) [Ratio] 25.5 kg/m2 25.5 k g/m2 [facility] ([facility], [facility]) Body height 63 [in_i] 63 [in_i] [facility] ([facility]) 5'3" Body weight 144.00 [lb_av] 144.00 [lb_av] MED[facility] T ([facility], [facility]) Body temperature 98.6 [degF] 98.6 [degF] [facility] ([facility]) Oxygen saturation in Arterial blood by Pulse oximetry 95 % 95 % [facility] ([facility], [facility]) Respiratory rate 12 /min 12 /min [facility] ( [facility]) Heart rate 74 /min 74 /min [facility] ([facility], [facility]) Diastolic blood pressure 79 mm[Hg] 79 mm[Hg] [facility] ([facility]) Systolic blood pressure 143 mm[Hg] 143 mm[Hg] M EDENT ([facility]) Patient Treatment Plan of Care Planned Activity Planned Date Details Description Data Source (s) Fluconazole 200 MG Oral Tablet [Diflucan] 01/23/2020 12:00:00 AM ES T eCW1 (Formerly [facility]) Fluconazole 200 MG Oral Tablet [Diflucan] 01/23/2020 12:00:00 AM ES [place] eCW1 (Formerly [facility])
--- NOTE | 2020-03-05 15:56 | REP ---
INDICATION: pain, non traumatic r/o dvt COMPARISON: None. TECHNIQUE: Real time compression and duplex Doppler evaluation of the Right upper extremity deep venous system is performed. FINDINGS: The Right subclavian, jugular, axillary, brachial, basilic and cephalic veins are fully compressible where accessible with transducer pressure, and demonstrate no intraluminal thrombus and normal venous waveforms. There is no evidence of deep venous thrombosis. IMPRESSION: No evidence of deep venous thrombosis of the Right upper extremity deep vein system. <Electronically signed by Quincy Perez > 03/05/20 [id number]
--- NOTE | 2020-03-05 16:28 | REP ---
INDICATION: sudden onset pain. COMPARISON: February 14, 2015.. TECHNIQUE: Three views. 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 There is a small accessory ossicle adjacent to the distal clavicle. These findings were not present in 2015. Glenohumeral articulation is normally aligned. There is some periarticular soft tissue calcification adjacent to the humeral head consistent with chronic calcific tendinitis or bursitis. There is diffuse osteopenia. IMPRESSION: Periarticular soft tissue calcification adjacent to the humeral head consistent with calcific tendinitis or bursitis. Osteopenia. Postoperative change versus osteolysis distal clavicle with a small adjacent accessory ossicle at the distal clavicle as well. No acute bony abnormality. <Electronically signed by Shaheen Velez > 03/05/20 [id number]
[2020-03-05 16:55] LABS: BASO % 0.2 % (0.0-1.0); HEMATOCRIT 42.2 % (36.0-47.0); HEMOGLOBIN 13.7 g/dl (12.0-15.5); LYMPH # 1.1 10^3/uL (1.5-5.0); LYMPH % 9.1 % (24.0-44.0); MEAN CORPUSCULAR HEMOGLOBIN 31.1 pg (27.0-33.0); MEAN CORPUSCULAR HGB CONC 32.5 g/dl (32.0-36.5); MEAN CORPUSCULAR VOLUME 95.7 fl (80.0-96.0); MONO # 0.5 10^3/uL (0.0-0.8); MONO % 3.9 % (0.0-5.0); NEUTROPHILS # 10.6 10^3/uL (1.5-8.5); NEUTROPHILS % 86.4 % (36.0-66.0); PLATELET COUNT, AUTOMATED 258 10^3/uL (150-450); RED BLOOD COUNT 4.41 10^6/uL (4.00-5.40); WHITE BLOOD COUNT 12.2 10^3/uL (4.0-10.0)
[2020-03-05 17:36] LABS: ERYTHROCYTE SEDIMENTATION RATE 13 mm/hr (0-30)
[2020-03-05] MEDS ORDERED: NORCO 5/325MG TABLET (BULK FOR ED) PO ONE (18:00)
[2020-03-05 18:11] VITALS: BP 152/83
== END 2020-03-05 18:14 | disposition home or self-care (01) ==
LOC: M ED 13:57 → EDBD 13:57 → M ED 18:14
DX: M25.511 Pain in right shoulder (principal)

== ENCOUNTER → 2020-05-31 | Outpatient (CLI) | payer MEDICARE, MEDICAID ==
[~2020-05-31] MED LIST changes: +VRAY1.5C PO
[2020-05-31 14:32] LABS: ALBUMIN 3.4 GM/DL (3.2-5.2); ALT/SGPT 30 U/L (12-78); BILIRUBIN,TOTAL 0.3 MG/DL (0.2-1.0); BLOOD UREA NITROGEN 21 MG/DL (7-18); CARBON DIOXIDE LEVEL 27 MEQ/L (21-32); CHLORIDE LEVEL 108 MEQ/L (98-107); CREATININE FOR GFR 0.65 MG/DL (0.55-1.30); GLOMERULAR FILTRATION RATE > 60.0 (>45); GLUCOSE, FASTING 90 MG/DL (70-100); POTASSIUM SERUM 4.3 MEQ/L (3.5-5.1); SODIUM LEVEL 140 MEQ/L (136-145); TOTAL PROTEIN 6.9 GM/DL (6.4-8.2)
== END ==
LOC: M LAB 10:53
PROVIDERS: ATTEND Physician Assistant
DX: B35.1 Tinea unguium (principal)

== ENCOUNTER → 2020-07-02 | Outpatient (CLI) | payer MEDICARE, MEDICAID ==
[2020-07-02 17:47] LABS: BASO # 0.1 10^3/uL (0.0-0.2); BASO % 0.6 % (0.0-1.0); EOS # 0.1 10^3/uL (0.0-0.5); HEMATOCRIT 44.5 % (36.0-47.0); HEMOGLOBIN 14.4 g/dl (12.0-15.5); LYMPH # 3.1 10^3/uL (1.5-5.0); LYMPH % 38.4 % (24.0-44.0); MEAN CORPUSCULAR HEMOGLOBIN 30.4 pg (27.0-33.0); MEAN CORPUSCULAR HGB CONC 32.4 g/dl (32.0-36.5); MEAN CORPUSCULAR VOLUME 94.1 fl (80.0-96.0); MONO # 0.7 10^3/uL (0.0-0.8); NEUTROPHILS # 4.2 10^3/uL (1.5-8.5); NEUTROPHILS % 51.9 % (36.0-66.0); PLATELET COUNT, AUTOMATED 262 10^3/uL (150-450); RED BLOOD COUNT 4.73 10^6/uL (4.00-5.40); WHITE BLOOD COUNT 8.1 10^3/uL (4.0-10.0)
[2020-07-02 18:02] LABS: INR 1.14; PROTHROMBIN TIME 14.9 SECONDS (12.5-14.3)
[2020-07-02 18:03] LABS: PARTIAL THROMBOPLASTIN TIME 23.8 SECONDS (24.2-38.5)
[2020-07-02 18:06] LABS: HEMOGLOBIN A1c 5.1 %
[2020-07-02 18:22] LABS: ALT/SGPT 548 U/L (12-78); BILIRUBIN,TOTAL 0.6 MG/DL (0.2-1.0); BLOOD UREA NITROGEN 13 MG/DL (7-18); CARBON DIOXIDE LEVEL 30 MEQ/L (21-32); CHLORIDE LEVEL 102 MEQ/L (98-107); CREATININE FOR GFR 0.67 MG/DL (0.55-1.30); FREE T4 0.98 NG/DL (0.76-1.46); GLOMERULAR FILTRATION RATE > 60.0 (>45); GLUCOSE, FASTING 84 MG/DL (70-100); NT-PRO BNP 48 PG/ML (<125); POTASSIUM SERUM 4.2 MEQ/L (3.5-5.1); SODIUM LEVEL 138 MEQ/L (136-145); TOTAL PROTEIN 7.3 GM/DL (6.4-8.2)
== END ==
LOC: M LAB 17:17
PROVIDERS: ATTEND Family Medicine
DX: Z01.818 Encounter for other preprocedural examination (principal); E66.9 Obesity, unspecified; Z79.899 Other long term (current) drug therapy; Z86.718 Personal history of other venous thrombosis and embolism
CPT/HCPCS: 36415; 80053; 83036; 83880; 84439; 84443; 85025; 85610; 85730; G0463

== ENCOUNTER → 2020-07-03 | Outpatient (REF) | payer OTHER, MEDICAID ==
[2020-07-03 20:07] LABS: ACETAMINOPHEN LEVEL < 2.0 UG/ML (10.0-30.0); ALBUMIN 3.8 GM/DL (3.2-5.2); ALT/SGPT 348 U/L (12-78); BILIRUBIN,DIRECT 0.2 MG/DL (0.0-0.2); BILIRUBIN,TOTAL 0.5 MG/DL (0.2-1.0); ETHYL ALCOHOL (ETHANOL) 0.003 % (0.000-0.010); HEPATITIS A ANTIBODY IGM NEGATIVE (NEGATIVE); HEPATITIS B CORE ANTIBODY IGM NEGATIVE (NEGATIVE); HEPATITIS B SURFACE ANTIGEN NEGATIVE (NEGATIVE); TOTAL PROTEIN 7.1 GM/DL (6.4-8.2)
[2020-07-05 16:33] LABS: ANTI-MITOCHONDRIAL ANTIBODY <20.0 Units (0.0-20.0); ANTINUCLEAR ANTIBODIES DIRECT Negative (Negative)
== END ==
LOC: M SFHCPLAZ 14:49
PROVIDERS: ATTEND Physician Assistant
DX: R74.8 Abnormal levels of other serum enzymes (principal)

== ENCOUNTER → 2020-07-10 | Outpatient (CLI) | payer OTHER, MEDICARE, MEDICAID ==
[2020-07-10 13:13] LABS: ALBUMIN 3.6 GM/DL (3.2-5.2); ALT/SGPT 64 U/L (12-78); BILIRUBIN,TOTAL 0.5 MG/DL (0.2-1.0); BLOOD UREA NITROGEN 13 MG/DL (7-18); CALCIUM LEVEL 9.3 MG/DL (8.8-10.2); CARBON DIOXIDE LEVEL 27 MEQ/L (21-32); CHLORIDE LEVEL 106 MEQ/L (98-107); GLOMERULAR FILTRATION RATE > 60.0 (>45); GLUCOSE, FASTING 103 MG/DL (70-100); POTASSIUM SERUM 4.7 MEQ/L (3.5-5.1); SODIUM LEVEL 137 MEQ/L (136-145); TOTAL PROTEIN 7.1 GM/DL (6.4-8.2)
== END ==
LOC: M LAB 10:48
PROVIDERS: ATTEND Nurse Practitioner Family
DX: Z01.818 Encounter for other preprocedural examination (principal)

== ENCOUNTER → 2020-09-24 | Outpatient (CLI) | payer MEDICARE, MEDICAID ==
[~2020-09-24] MED LIST changes: +GASTROGRAFIN SOLUTION 30ML (Q9963) As Ordered ONE; +ISOVUE-370 76% 100ML VIAL As Ordered ONE
== END ==
LOC: M RAD 13:59
PROVIDERS: ATTEND Physician Assistant
DX: R10.813 Right lower quadrant abdominal tenderness (principal); K83.8 Other specified diseases of biliary tract; Z90.49 Acquired absence of other specified parts of digestive tract; Z95.828 Presence of other vascular implants and grafts
CPT/HCPCS: 74177; Q9963; Q9967

== ENCOUNTER → 2021-01-22 | Outpatient (CLI) | payer MEDICARE, MEDICAID ==
[~2021-01-22] MED LIST changes: -GASTROGRAFIN SOLUTION 30ML (Q9963) As Ordered ONE; -ISOVUE-370 76% 100ML VIAL As Ordered ONE
--- NOTE | 2021-01-22 10:15 | REPMRS ---
Patient History The patient states she had a clinical breast exam in 01/2021. Family history of breast cancer under age 50 in maternal grandmother. No Hormone Replacement Therapy Patient states no breast complaints today. Patient has signed MRS History Sheet. Moderna vaccine 04/2020, 05/2020. Digital Woman Screen Mammo: January 22, 2021 - Exam #: [id number] Bilateral CC and MLO view(s) were taken. Technologist: Shy Pavon, Technologist Prior study comparison: January 20, 2020, bilateral digital woman screen mammo performed at [facility] [place]. November 03, 2018, bilateral digital woman screen mammo performed at [facility] [place]. FINDINGS: There are scattered fibroglandular densities. Screening. Digital screening (2D) mammography was performed bilaterally in the CC and MLO projections. Additionally, breast tomosynthesis (3D mammography) was performed bilaterally in the CC and MLO projections. Todays exam was compared to the prior exam/exams. By history, the patient has no complaints of a palpable breast abnormality or other significant breast complaints. The Volpara volumetric breast density category is B, there are scattered areas of fibroglandular densities. The breasts are unchanged in size and shape. There is a radioopaque disk marking the location of a mole on the left breast. There are no radha-soft tissue densities or spiculated masses. There is no internal architectural distortion. There are no suspicious radha-calcific clusters. Skin thickening or nipple retraction is not present. IMPRESSION: BI-RADS Category 2- Benign Findings. There is no evidence of malignant alteration of the breasts. Followup examination recommended in one year. This mammogram was read with the assistance of [employer],an FDA approved computer aided detection system for mammography. The lifetime Tyrer-Cuzick score is 14.1% Negative x-ray reports should not delay surgical consultation if a dominant or clinically suspicious mass is present. Not all breast cancers can be identified by mammography. Therefore, we recommend that you continue to perform regular breast self-examination and physical examination and then promptly contact your physician of any concerns or changes. Adenosis and dense breasts may obscure an underlying neoplasm. No significant changes when compared with prior studies. Assessment: BI-RADS/ACR category 2 mammogram. Benign Findings. Recommendation Routine screening mammogram of both breasts in 1 year. Electronically Signed By: Gurdeep Justice MD 01/22/21 [id number]
== END ==
LOC: M WHC 07:52
PROVIDERS: ATTEND Nurse Practitioner Women's Health
DX: Z12.31 Encounter for screening mammogram for malignant neoplasm of breast (principal); Z12.4 Encounter for screening for malignant neoplasm of cervix; Z80.3 Family history of malignant neoplasm of breast; N95.2 Postmenopausal atrophic vaginitis
CPT/HCPCS: 77063; 77067; 87624; G0123

== ENCOUNTER → 2021-01-22 | Outpatient (REF) | payer OTHER, MEDICARE, MEDICAID | LOC: M SFHCWAGY 13:05 | PROVIDERS: ATTEND Nurse Practitioner Women's Health | DX: Z12.4 Encounter for screening for malignant neoplasm of cervix (principal); Z53.9 Procedure and treatment not carried out, unspecified reason ==

== ENCOUNTER 2021-04-16 16:58 | Emergency (ER) | payer MEDICAID, MEDICARE, OTHER ==
[~2021-04-16] VITALS: Ht 160 cm; Wt 75.0 kg
[2021-04-16] MEDS ORDERED: ACETAMINOPHEN 500 MG TAB PO ONE (21:50)
[2021-04-17 00:41] VITALS: BP 145/72
== END 2021-04-17 00:46 | disposition home or self-care (01) ==
LOC: M ED 16:58
DX: Z04.1 Encounter for examination and observation following transport accident (principal); D32.9 Benign neoplasm of meninges, unspecified; Z86.718 Personal history of other venous thrombosis and embolism; Z79.899 Other long term (current) drug therapy; Z79.01 Long term (current) use of anticoagulants; F12.20 Cannabis dependence, uncomplicated

== ENCOUNTER → 2021-07-01 | Outpatient (CLI) | payer MEDICARE, MEDICAID ==
[~2021-07-01] MED LIST changes: +BIOT10TA2 PO; +CALC250T PO; -FLUO20CA22; +FLUO20CA22 PO; +VITA100093 PO; +VITMTA PO
== END ==
LOC: M LABSMTC 11:06
PROVIDERS: ATTEND Anesthesiology
DX: Z01.812 Encounter for preprocedural laboratory examination (principal); Z11.52 Encounter for screening for COVID-19

== ENCOUNTER 2021-07-05 08:03 | Day surgery (SDC) | payer MEDICARE, MEDICAID ==
[~2021-07-05] VITALS: Ht 160 cm; Wt 78.0 kg
[~2021-07-05 08:03] MED LIST changes: +LIDOCAINE 2% 100MG/5ML SDV (FOR ANES.) As Ordered ONE; +NS 1,000 ML IV ONE; +propofoL 200 MG/20 ML VIAL As Ordered ONE
[2021-07-05 10:11] VITALS: BP 127/69
== END 2021-07-05 10:12 | disposition home or self-care (01) ==
LOC: M OPP 08:03
PROVIDERS: ATTEND Internal Medicine Gastroenterology
DX: Z12.11 Encounter for screening for malignant neoplasm of colon (principal); Z86.010 Personal history of colon polyps; Z80.42 Family history of malignant neoplasm of prostate; K63.5 Polyp of colon; K57.30 Diverticulosis of large intestine without perforation or abscess without bleeding; K64.0 First degree hemorrhoids; Z80.1 Family history of malignant neoplasm of trachea, bronchus and lung; Z82.69 Family history of other diseases of the musculoskeletal system and connective tissue; Z86.718 Personal history of other venous thrombosis and embolism; D32.0 Benign neoplasm of cerebral meninges; Z98.84 Bariatric surgery status; Z79.899 Other long term (current) drug therapy

== ENCOUNTER → 2021-08-09 | Outpatient (REF) | payer MEDICARE, MEDICAID ==
[~2021-08-09] MED LIST changes: -LIDOCAINE 2% 100MG/5ML SDV (FOR ANES.) As Ordered ONE; -NS 1,000 ML IV ONE; -propofoL 200 MG/20 ML VIAL As Ordered ONE
== END ==
LOC: M SFHCPLAZ 11:49
PROVIDERS: ATTEND Family Medicine
DX: R05.9 Cough, unspecified (principal)

== ENCOUNTER → 2021-08-12 | Outpatient (CLI) | payer MEDICARE, MEDICAID ==
[2021-08-12 16:48] LABS: BASO % 0.4 % (0.0-1.0); EOS # 0.1 10^3/uL (0.0-0.5); EOS % 1.4 % (0.0-3.0); HEMATOCRIT 41.9 % (36.0-47.0); HEMOGLOBIN 13.4 g/dl (12.0-15.5); LYMPH # 2.9 10^3/uL (1.5-5.0); LYMPH % 35.2 % (24.0-44.0); MEAN CORPUSCULAR HEMOGLOBIN 32.1 pg (27.0-33.0); MEAN CORPUSCULAR VOLUME 100.2 fl (80.0-96.0); MONO # 0.6 10^3/uL (0.0-0.8); MONO % 6.8 % (2.0-8.0); NEUTROPHILS # 4.5 10^3/uL (1.5-8.5); NEUTROPHILS % 55.7 % (36.0-66.0); PLATELET COUNT, AUTOMATED 283 10^3/uL (150-450); RED BLOOD COUNT 4.18 10^6/uL (4.00-5.40); WHITE BLOOD COUNT 8.1 10^3/uL (4.0-10.0)
[2021-08-12 17:00] LABS: BLOOD UREA NITROGEN 18 MG/DL (7-18); CALCIUM LEVEL 8.8 MG/DL (8.8-10.2); CARBON DIOXIDE LEVEL 27 MEQ/L (21-32); CHLORIDE LEVEL 106 MEQ/L (98-107); CREATININE FOR GFR 0.75 MG/DL (0.55-1.30); GLOMERULAR FILTRATION RATE > 60.0 (>45); GLUCOSE, FASTING 106 MG/DL (70-100); POTASSIUM SERUM 4.3 MEQ/L (3.5-5.1); SODIUM LEVEL 139 MEQ/L (136-145)
== END ==
LOC: M WUC 11:51
PROVIDERS: ATTEND Student in an Organized Health Care Education/Training Program
DX: R05.9 Cough, unspecified (principal); Z79.899 Other long term (current) drug therapy

== ENCOUNTER → 2021-09-17 | Outpatient (CLI) | payer MEDICARE, MEDICAID | LOC: M WUC 14:05 | PROVIDERS: ATTEND Student in an Organized Health Care Education/Training Program | DX: M19.171 Post-traumatic osteoarthritis, right ankle and foot (principal) ==

== ENCOUNTER → 2021-09-30 | Outpatient (CLI) | payer MEDICARE, MEDICAID ==
[2021-09-30 17:17] LABS: HEMATOCRIT 43.8 % (36.0-47.0); HEMOGLOBIN 13.8 g/dl (12.0-15.5); MEAN CORPUSCULAR HEMOGLOBIN 31.5 pg (27.0-33.0); MEAN CORPUSCULAR HGB CONC 31.5 g/dl (32.0-36.5); PLATELET COUNT, AUTOMATED 278 10^3/uL (150-450); RED BLOOD COUNT 4.38 10^6/uL (4.00-5.40); WHITE BLOOD COUNT 7.8 10^3/uL (4.0-10.0)
[2021-09-30 17:28] LABS: INR 2.58
[2021-09-30 17:29] LABS: PARTIAL THROMBOPLASTIN TIME 40.4 SECONDS (25.9-37.0)
[2021-09-30 17:47] LABS: BLOOD UREA NITROGEN 22 MG/DL (7-18); CALCIUM LEVEL 9.3 MG/DL (8.8-10.2); CARBON DIOXIDE LEVEL 25 MEQ/L (21-32); CHLORIDE LEVEL 108 MEQ/L (98-107); GLOMERULAR FILTRATION RATE > 60.0 (>45); GLUCOSE, FASTING 105 MG/DL (70-100); POTASSIUM SERUM 4.4 MEQ/L (3.5-5.1); SODIUM LEVEL 137 MEQ/L (136-145)
== END ==
LOC: M WUC 09:56
PROVIDERS: ATTEND Orthopaedic Surgery
DX: Z01.818 Encounter for other preprocedural examination (principal)

== ENCOUNTER → 2021-10-28 | Outpatient (CLI) | payer MEDICARE, MEDICAID | LOC: M WUC 10:33 | PROVIDERS: ATTEND Physician Assistant | DX: S92.421A Displaced fracture of distal phalanx of right great toe, initial encounter for closed fracture (principal); X58.XXXA Exposure to other specified factors, initial encounter; Y92.89 Other specified places as the place of occurrence of the external cause ==

== ENCOUNTER → 2021-11-07 | Outpatient (CLI) | payer MEDICARE, MEDICAID | LOC: M LABSMTC 10:00 | PROVIDERS: ATTEND Orthopaedic Surgery | DX: Z01.818 Encounter for other preprocedural examination (principal); Z20.822 Contact with and (suspected) exposure to COVID-19 ==

== ENCOUNTER → 2021-11-25 | Outpatient (CLI) | payer MEDICARE, MEDICAID ==
[~2021-11-25] MED LIST changes: +ISOVUE-370 76% 100ML VIAL As Ordered ONE
== END ==
LOC: M RAD 13:00
PROVIDERS: ATTEND Psychiatry & Neurology Neurology
DX: D32.0 Benign neoplasm of cerebral meninges (principal)
CPT/HCPCS: 70470; Q9967

== ENCOUNTER 2022-03-03 12:08 | Inpatient (IN) | payer MEDICAID, MEDICARE ==
[~2022-03-03] VITALS: Ht 160 cm; Wt 74.3 kg
[~2022-03-03 12:08] MED LIST changes: -ISOVUE-370 76% 100ML VIAL As Ordered ONE
[2022-03-03 13:40] LABS: HEMATOCRIT 42.9 % (36.0-47.0); HEMOGLOBIN 14.2 g/dl (12.0-15.5); MEAN CORPUSCULAR HEMOGLOBIN 30.7 pg (27.0-33.0); MEAN CORPUSCULAR HGB CONC 33.1 g/dl (32.0-36.5); MEAN CORPUSCULAR VOLUME 92.7 fl (80.0-96.0); PLATELET COUNT, AUTOMATED 248 10^3/uL (150-450); RED BLOOD COUNT 4.63 10^6/uL (4.00-5.40); WHITE BLOOD COUNT 5.8 10^3/uL (4.0-10.0)
[2022-03-03 14:08] LABS: BARBITURATES URINE NEGATIVE (NEGATIVE); BENZODIAZEPINES URINE NEGATIVE (NEGATIVE); CANNABINOIDS URINE NEGATIVE (NEGATIVE); COCAINE METABOLITE URINE NEGATIVE (NEGATIVE); METHADONE URINE NEGATIVE (NEGATIVE); OPIATES URINE NEGATIVE (NEGATIVE); PHENCYCLIDINE URINE NEGATIVE (NEGATIVE)
[2022-03-03 14:09] LABS: ETHYL ALCOHOL (ETHANOL) 0.005 % (0.000-0.010)
[2022-03-03 14:11] LABS: ACETAMINOPHEN LEVEL < 2.0 UG/ML (10.0-20.0); ALBUMIN 3.2 G/DL (3.2-5.2); ALKALINE PHOSPHATASE 130 U/L (46-116); ALT/SGPT 20 U/L (7.0-40); AST/SGOT 32 U/L (<34); BILIRUBIN,DIRECT 0.1 MG/DL (<0.4); BILIRUBIN,TOTAL 0.4 MG/DL (0.3-1.2); BLOOD UREA NITROGEN 17 MG/DL (9-23); CALCIUM LEVEL 8.8 MG/DL (8.3-10.6); CARBON DIOXIDE LEVEL 24 MMOL/L (20-31); CHLORIDE LEVEL 103 MMOL/L (98-107); CREATININE FOR GFR 0.62 MG/DL (0.55-1.30); GLOMERULAR FILTRATION RATE > 60.0 (>45); GLUCOSE, FASTING 100 MG/DL (74-106); POTASSIUM SERUM 4.5 MMOL/L (3.5-5.1); SALICYLATE LEVEL < 3.0 MG/DL (<30); SODIUM LEVEL 136 MMOL/L (136-145); TOTAL PROTEIN 6.5 G/DL (5.7-8.2)
[2022-03-03 14:12] LABS: THYROID STIMULATING HORMONE 2.104 uIU/ML (0.55-4.78)
[2022-03-03 14:21] LABS: AMPHETAMINES LEVEL URINE POSITIVE (NEGATIVE)
[2022-03-03 14:32] LABS: RSV AMPLIFICATION NEGATIVE (NEGATIVE)
[2022-03-03] MEDS ORDERED: traZODone 50 MG TAB PO PRN (20:30)
[2022-03-03] MEDS ORDERED: MAALOX 30 ML SUSP *UDC PO PRN (20:30)
[2022-03-03] MEDS ORDERED: MOM 30ML SUSPENSION UDC PO PRN (20:30)
[2022-03-03] MEDS ORDERED: ACETAMINOPHEN TAB 650MG DOSE (2X325MG) PO PRN (20:30)
[2022-03-03] MEDS ORDERED: CALC250T PO (21:38)
[2022-03-03] MEDS ORDERED: FLUO40CA PO (21:38)
[2022-03-03] MEDS ORDERED: REST0.05 OU (21:38)
[2022-03-03] MEDS ORDERED: CLON1TAB8 PO (21:38)
[2022-03-03] MEDS ORDERED: B-121TAB3 PO (21:38)
[2022-03-03] MEDS ORDERED: ADDE30TA PO (21:38)
[2022-03-03] MEDS ORDERED: TRAZ-252 PO (21:38)
[2022-03-03] MEDS ORDERED: ACET-1349 PO (21:38)
[2022-03-03] MEDS ORDERED: LUMA42CA PO (21:38)
[2022-03-03] MEDS ORDERED: HOME MED LIST COMPLETE! XX SCH (21:40)
[2022-03-03] MEDS: traZODone 50 MG TAB PO SCH (23:05)
[2022-03-04 06:42] VITALS: BP 137/71
[2022-03-04 06:43] VITALS: BP 113/59
[2022-03-04] MEDS: FLUoxetine 20MG CAP PO SCH (08:02)
[2022-03-04] MEDS: MULTIVITAMINS/MINERALS THERAP 1 TAB PO SCH (08:03)
[2022-03-04] MEDS: RIVAROXABAN 20MG TAB (XARELTO) PO SCH (08:03)
[2022-03-04] MEDS: VITAMIN D 1,000 INTERNATIONAL UNITS TABLET PO SCH (08:03)
[2022-03-04] MEDS: ADDERALL 5 MG TAB PO SCH (08:03)
[2022-03-04] MEDS: clonazePAM 1 MG TAB PO PRN (08:08)
[2022-03-04] MEDS ORDERED: LIDOCAINE 5% (LIDODERM) PATCH TD ONE (09:00)
[2022-03-04] MEDS: NALTREXONE 50 MG TAB PO SCH (12:04)
[2022-03-04 17:00] VITALS: BP 138/73
[2022-03-04] MEDS ORDERED: CYANOCOBALAMIN 500 MCG TAB PO SCH (18:00)
[2022-03-04] MEDS: traZODone 50 MG TAB PO SCH (20:12)
[2022-03-05 06:52] VITALS: BP 104/56
[2022-03-05 07:34] LABS: CHOLESTEROL RISK RATIO 2.55 (<5); HDL CHOLESTEROL 64.3 MG/DL (>40); LDL CHOLESTEROL 82.5 MG/DL (<100)
[2022-03-05] MEDS: ADDERALL 5 MG TAB PO SCH (08:16)
[2022-03-05] MEDS: FLUoxetine 20MG CAP PO SCH (08:16)
[2022-03-05] MEDS: RIVAROXABAN 20MG TAB (XARELTO) PO SCH (08:17)
[2022-03-05] MEDS: VITAMIN D 1,000 INTERNATIONAL UNITS TABLET PO SCH (08:17)
[2022-03-05] MEDS: MULTIVITAMINS/MINERALS THERAP 1 TAB PO SCH (08:17)
[2022-03-05] MEDS: NALTREXONE 50 MG TAB PO SCH (08:17)
[2022-03-05] MEDS ORDERED: LIDOCAINE 5% (LIDODERM) PATCH TD SCH (09:00)
[2022-03-05] MEDS ORDERED: CAPLYTA 42 MG PO SCH (09:00)
[2022-03-05] MEDS ORDERED: FLUBLOK(EGG FREE)(QUAD)INFLUENZA VACC 0.5ML SYRINGE 18YRS & OLDER IM.IMMUN ONE (09:00)
[2022-03-05] MEDS ORDERED: LIDO5TD TD (09:22)
[2022-03-05] MEDS ORDERED: NALT50TA4 PO (09:22)
[2022-03-05] MEDS: clonazePAM 1 MG TAB PO PRN (12:31)
== END 2022-03-05 13:06 | disposition home or self-care (01) | DRG 881 ==
LOC: M ED 12:08 → M ED INP 20:28 → M PSY 22:08
PROVIDERS: ADMIT Student in an Organized Health Care Education/Training Program; ATTEND Student in an Organized Health Care Education/Training Program
DX: F32.9 Major depressive disorder, single episode, unspecified (principal); F43.10 Post-traumatic stress disorder, unspecified; F60.3 Borderline personality disorder; F10.20 Alcohol dependence, uncomplicated; D32.9 Benign neoplasm of meninges, unspecified; M25.521 Pain in right elbow; Z86.718 Personal history of other venous thrombosis and embolism; Z62.810 Personal history of physical and sexual abuse in childhood; Z91.411 Personal history of adult psychological abuse; Z91.52 Personal history of nonsuicidal self-harm; Z20.822 Contact with and (suspected) exposure to COVID-19; Z79.899 Other long term (current) drug therapy

== ENCOUNTER 2022-03-14 19:01 | Inpatient (IN) | payer MEDICARE, OTHER ==
[~2022-03-14] VITALS: Ht 160 cm; Wt 72.2 kg
[~2022-03-14 19:01] MED LIST changes: +ACET-1349 PO; +ADDE30TA PO; +B-121TAB3 PO; +CLON1TAB8 PO; +FLUO40CA PO; +LIDO5TD TD; +LUMA42CA PO; +NALT50TA4 PO; +TRAZ-252 PO
[2022-03-14 20:14] LABS: BASO % 0.3 % (0.0-1.0); EOS % 0.4 % (0.0-3.0); HEMATOCRIT 43.5 % (36.0-47.0); HEMOGLOBIN 14.1 g/dl (12.0-15.5); LYMPH # 1.4 10^3/uL (1.5-5.0); LYMPH % 19.8 % (24.0-44.0); MEAN CORPUSCULAR HEMOGLOBIN 30.3 pg (27.0-33.0); MEAN CORPUSCULAR HGB CONC 32.4 g/dl (32.0-36.5); MEAN CORPUSCULAR VOLUME 93.5 fl (80.0-96.0); MONO # 0.6 10^3/uL (0.0-0.8); MONO % 7.9 % (2.0-8.0); NEUTROPHILS # 5.2 10^3/uL (1.5-8.5); NEUTROPHILS % 71.3 % (36.0-66.0); PLATELET COUNT, AUTOMATED 253 10^3/uL (150-450); RED BLOOD COUNT 4.65 10^6/uL (4.00-5.40); WHITE BLOOD COUNT 7.3 10^3/uL (4.0-10.0)
[2022-03-14 20:24] LABS: INR 0.95; PROTHROMBIN TIME 12.9 SECONDS (12.5-14.5)
[2022-03-14 20:25] LABS: PARTIAL THROMBOPLASTIN TIME 24.5 SECONDS (24.8-34.2)
[2022-03-14 20:27] LABS: D-DIMER QUANT 1981.13 ng/ml (<500)
[2022-03-14 20:42] LABS: CK-MB VALUE MASS 1.7 NG/ML (<3.6)
[2022-03-14 20:45] LABS: ALBUMIN 3.2 G/DL (3.2-5.2); ALKALINE PHOSPHATASE 146 U/L (46-116); ALT/SGPT 24 U/L (7.0-40); AST/SGOT 50 U/L (<34); BILIRUBIN,TOTAL 0.4 MG/DL (0.3-1.2); BLOOD UREA NITROGEN 15 MG/DL (9-23); CARBON DIOXIDE LEVEL 24 MMOL/L (20-31); CHLORIDE LEVEL 105 MMOL/L (98-107); CREATININE FOR GFR 0.87 MG/DL (0.55-1.30); GLOMERULAR FILTRATION RATE > 60.0 (>45); GLUCOSE, FASTING 178 MG/DL (74-106); MAGNESIUM LEVEL 1.9 MG/DL (1.8-2.4); POTASSIUM SERUM 4.7 MMOL/L (3.5-5.1); SODIUM LEVEL 139 MMOL/L (136-145); TOTAL PROTEIN 6.6 G/DL (5.7-8.2)
[2022-03-14 20:46] LABS: FREE T4 1.07 NG/DL (0.89-1.76)
[2022-03-14 20:47] LABS: THYROID STIMULATING HORMONE 3.793 uIU/ML (0.55-4.78)
[2022-03-14 20:54] LABS: CPK CREATINE PHOSPHOKINASE 78 U/L (34-145); MB/CK RELATIVE INDEX 2.17 (< OR =4)
[2022-03-14] MEDS ORDERED: ISOVUE-370 76% 100ML VIAL As Ordered ONE (21:56)
[2022-03-15] VITALS (7 sets, daily range): BP systolic 116–137; BP diastolic 65–78; O2SAT 91–94
[2022-03-15] MEDS ORDERED: methylPREDNISolone 125MG 2ML VIAL IV ONE (00:05)
[2022-03-15] MEDS ORDERED: IPRATROPIUM 0.5MG/ALBUTEROL 2.5MG INH SOL UD 3ML (DUONEB) NEB ONE (00:05)
[2022-03-15 01:22] LABS: ABG BASE EXCESS 1.7 (-2.0-2.0); ABG HCO3 22.6 MEQ/L (22.0-26.0); ABG O2 SATURATION 92.1 % (95.0-99.0); ABG PARTIAL PRESSURE CO2 26.1 mmHg (35.0-45.0); ABG PARTIAL PRESSURE O2 56.7 mmHg (75.0-100.0); ABG STANDARD HCO3 25.8 MEQ/L (22.0-26.0); ABG TOTAL CO2 23.4 MEQ/L (23.0-31.0); ABG pH (ARTERIAL) 7.556 UNITS (7.350-7.450)
[2022-03-15] MEDS ORDERED: clonazePAM 1 MG TAB PO ONE (02:50)
[2022-03-15] MEDS ORDERED: HOME MED LIST COMPLETE! XX SCH (02:55)
[2022-03-15 04:15] LABS: CPK CREATINE PHOSPHOKINASE 65 U/L (34-145)
[2022-03-15 04:16] LABS: CK-MB VALUE MASS 1.2 NG/ML (<3.6); MB/CK RELATIVE INDEX 1.84 (< OR =4)
[2022-03-15] MEDS: AZITHROMYCIN 250MG TABLET PO SCH (11:13)
[2022-03-15] MEDS: MULTIVITAMINS/MINERALS THERAP 1 TAB PO SCH (11:14)
[2022-03-15] MEDS: CYANOCOBALAMIN 500 MCG TAB PO SCH (11:14)
[2022-03-15] MEDS: FLUoxetine 20MG CAP PO SCH (11:14)
[2022-03-15] MEDS: VITAMIN D 1,000 INTERNATIONAL UNITS TABLET PO SCH (11:14)
[2022-03-15] MEDS: LIDOCAINE 5% (LIDODERM) PATCH TD SCH (11:15)
[2022-03-15] MEDS: cefTRIAXone SOD 1 GM in D5W MINI-BAG PLUS 50 ML IV SCH (11:59)
[2022-03-15 12:00] LABS: IMMUNOGLOBULIN M 235.7 MG/DL (50-300); RHEUMATOID FACTOR QUANT 4.8 IU/ML (<14)
[2022-03-15 12:03] LABS: IMMUNOGLOBULIN E 94.1 IU/ML (0-378)
[2022-03-15] MEDS: ACETAMINOPHEN TAB 650MG DOSE (2X325MG) PO PRN ×2 (16:14→21:11)
[2022-03-15] MEDS: IPRATROPIUM 0.5MG/ALBUTEROL 2.5MG INH SOL UD 3ML (DUONEB) NEB SCH ×2 (16:23→23:13)
[2022-03-15] MEDS ORDERED: traMADol 50 MG TAB PO ONE (17:30)
[2022-03-15] MEDS ORDERED: RIVAROXABAN 20MG TAB (XARELTO) PO SCH (18:00)
[2022-03-16 00:37] VITALS: O2SAT 93
[2022-03-16 06:00] VITALS: BP 109/54
[2022-03-16 06:41] LABS: HEMATOCRIT 38.8 % (36.0-47.0); HEMOGLOBIN 12.6 g/dl (12.0-15.5); MEAN CORPUSCULAR HEMOGLOBIN 30.4 pg (27.0-33.0); MEAN CORPUSCULAR HGB CONC 32.5 g/dl (32.0-36.5); MEAN CORPUSCULAR VOLUME 93.7 fl (80.0-96.0); PLATELET COUNT, AUTOMATED 267 10^3/uL (150-450); RED BLOOD COUNT 4.14 10^6/uL (4.00-5.40); WHITE BLOOD COUNT 8.9 10^3/uL (4.0-10.0)
[2022-03-16 06:51] LABS: INR 0.98; PARTIAL THROMBOPLASTIN TIME 24.8 SECONDS (24.8-34.2); PROTHROMBIN TIME 13.2 SECONDS (12.5-14.5)
[2022-03-16 07:13] LABS: BLOOD UREA NITROGEN 18 MG/DL (9-23); CALCIUM LEVEL 8.1 MG/DL (8.3-10.6); CARBON DIOXIDE LEVEL 25 MMOL/L (20-31); CHLORIDE LEVEL 106 MMOL/L (98-107); GLOMERULAR FILTRATION RATE > 60.0 (>45); GLUCOSE, FASTING 91 MG/DL (74-106); POTASSIUM SERUM 4.1 MMOL/L (3.5-5.1); SODIUM LEVEL 140 MMOL/L (136-145)
[2022-03-16] MEDS: IPRATROPIUM 0.5MG/ALBUTEROL 2.5MG INH SOL UD 3ML (DUONEB) NEB SCH (07:26)
[2022-03-16] MEDS: MULTIVITAMINS/MINERALS THERAP 1 TAB PO SCH (08:32)
[2022-03-16] MEDS: FLUoxetine 20MG CAP PO SCH (08:32)
[2022-03-16] MEDS: LIDOCAINE 5% (LIDODERM) PATCH TD SCH (08:32)
[2022-03-16] MEDS: AZITHROMYCIN 250MG TABLET PO SCH (08:32)
[2022-03-16] MEDS: VITAMIN D 1,000 INTERNATIONAL UNITS TABLET PO SCH (08:32)
[2022-03-16] MEDS: CYANOCOBALAMIN 500 MCG TAB PO SCH (08:32)
[2022-03-16 09:14] VITALS: O2SAT 60
[2022-03-16] MEDS ORDERED: IPRATROPIUM 0.5MG/ALBUTEROL 2.5MG INH SOL UD 3ML (DUONEB) NEB PRN (09:45)
[2022-03-16] MEDS: cefTRIAXone SOD 1 GM in D5W MINI-BAG PLUS 50 ML IV SCH (12:05)
[2022-03-16 14:00] VITALS: BP 120/68
[2022-03-16] MEDS: clonazePAM 1 MG TAB PO PRN (20:27)
[2022-03-16 23:28] VITALS: O2SAT 95
[2022-03-17] VITALS (8 sets, daily range): BP systolic 111–132; BP diastolic 63–85; O2SAT 91
[2022-03-17 06:32] LABS: HEMATOCRIT 40.4 % (36.0-47.0); HEMOGLOBIN 13.1 g/dl (12.0-15.5); MEAN CORPUSCULAR HEMOGLOBIN 30.6 pg (27.0-33.0); MEAN CORPUSCULAR HGB CONC 32.4 g/dl (32.0-36.5); MEAN CORPUSCULAR VOLUME 94.4 fl (80.0-96.0); PLATELET COUNT, AUTOMATED 285 10^3/uL (150-450); RED BLOOD COUNT 4.28 10^6/uL (4.00-5.40); WHITE BLOOD COUNT 7.6 10^3/uL (4.0-10.0)
[2022-03-17 06:59] LABS: BLOOD UREA NITROGEN 16 MG/DL (9-23); CALCIUM LEVEL 8.8 MG/DL (8.3-10.6); CARBON DIOXIDE LEVEL 26 MMOL/L (20-31); CHLORIDE LEVEL 105 MMOL/L (98-107); CREATININE FOR GFR 0.67 MG/DL (0.55-1.30); GLOMERULAR FILTRATION RATE > 60.0 (>45); GLUCOSE, FASTING 83 MG/DL (74-106); POTASSIUM SERUM 4.4 MMOL/L (3.5-5.1); SODIUM LEVEL 140 MMOL/L (136-145)
[2022-03-17] MEDS: LIDOCAINE 5% (LIDODERM) PATCH TD SCH (09:36)
[2022-03-17] MEDS: VITAMIN D 1,000 INTERNATIONAL UNITS TABLET PO SCH (09:37)
[2022-03-17] MEDS: CYANOCOBALAMIN 500 MCG TAB PO SCH (09:37)
[2022-03-17] MEDS: FLUoxetine 20MG CAP PO SCH (09:37)
[2022-03-17] MEDS: AZITHROMYCIN 250MG TABLET PO SCH (09:37)
[2022-03-17] MEDS: MULTIVITAMINS/MINERALS THERAP 1 TAB PO SCH (09:37)
[2022-03-17] MEDS: cefTRIAXone SOD 1 GM in D5W MINI-BAG PLUS 50 ML IV SCH (11:52)
[2022-03-17] MEDS ORDERED: CETACAINE SPRAY 5GM As Ordered ONE (12:20)
[2022-03-17] MEDS ORDERED: EPINEPHrine 1MG/10ML SYRINGE 1.5IN As Ordered ONE (12:52)
[2022-03-17] MEDS ORDERED: THROMBIN 5,000 UNITS VIAL As Ordered ONE (12:52)
[2022-03-17] MEDS ORDERED: ROCURONIUM BROMIDE 50MG/5ML VIAL As Ordered ONE (13:05)
[2022-03-17] MEDS ORDERED: propofoL 200 MG/20 ML VIAL As Ordered ONE (13:05)
[2022-03-17] MEDS ORDERED: METOCLOPRAMIDE INJ 10MG/2ML VIAL As Ordered ONE (13:05)
[2022-03-17] MEDS ORDERED: SUCCINYLCHOLINE 100MG/5ML SYRINGE As Ordered ONE (13:05)
[2022-03-17] MEDS ORDERED: fentaNYL 100 MCG/2 ML INJECTION As Ordered ONE (13:05)
[2022-03-17] MEDS ORDERED: ONDANSETRON 4MG 2ML VIAL As Ordered ONE (13:05)
[2022-03-17] MEDS ORDERED: LIDOCAINE 2% 100MG/5ML SDV (FOR ANES.) As Ordered ONE (13:05)
[2022-03-17] MEDS ORDERED: MIDAZOLAM INJ 2MG/2ML VIAL As Ordered ONE (13:05)
[2022-03-17] MEDS ORDERED: LIDOCAINE VISCOUS 2% SOLN 15ML UDC As Ordered ONE (13:27)
[2022-03-17] MEDS ORDERED: LIDOCAINE 1% MDV 20ML VIAL As Ordered ONE (13:27)
[2022-03-17] MEDS: methylPREDNISolone 40MG 1ML VIAL IV SCH ×2 (14:57→20:14)
[2022-03-18 02:00] VITALS: BP 130/79
[2022-03-18] MEDS: methylPREDNISolone 40MG 1ML VIAL IV SCH ×2 (02:39→08:43)
[2022-03-18] MEDS: clonazePAM 1 MG TAB PO PRN (02:42)
[2022-03-18 06:00] VITALS: BP 111/56
[2022-03-18 06:02] LABS: HEMATOCRIT 41.4 % (36.0-47.0); HEMOGLOBIN 13.5 g/dl (12.0-15.5); MEAN CORPUSCULAR HEMOGLOBIN 29.9 pg (27.0-33.0); MEAN CORPUSCULAR HGB CONC 32.6 g/dl (32.0-36.5); MEAN CORPUSCULAR VOLUME 91.8 fl (80.0-96.0); PLATELET COUNT, AUTOMATED 297 10^3/uL (150-450); RED BLOOD COUNT 4.51 10^6/uL (4.00-5.40); WHITE BLOOD COUNT 9.7 10^3/uL (4.0-10.0)
[2022-03-18 06:26] LABS: BLOOD UREA NITROGEN 15 MG/DL (9-23); CALCIUM LEVEL 9.1 MG/DL (8.3-10.6); CARBON DIOXIDE LEVEL 26 MMOL/L (20-31); CHLORIDE LEVEL 102 MMOL/L (98-107); CREATININE FOR GFR 0.61 MG/DL (0.55-1.30); GLOMERULAR FILTRATION RATE > 60.0 (>45); GLUCOSE, FASTING 143 MG/DL (74-106); POTASSIUM SERUM 4.5 MMOL/L (3.5-5.1); SODIUM LEVEL 136 MMOL/L (136-145)
[2022-03-18 07:45] VITALS: BP 118/82
[2022-03-18] MEDS: LIDOCAINE 5% (LIDODERM) PATCH TD SCH (08:41)
[2022-03-18] MEDS: MULTIVITAMINS/MINERALS THERAP 1 TAB PO SCH (08:42)
[2022-03-18] MEDS: AZITHROMYCIN 250MG TABLET PO SCH (08:42)
[2022-03-18] MEDS: VITAMIN D 1,000 INTERNATIONAL UNITS TABLET PO SCH (08:42)
[2022-03-18] MEDS: CYANOCOBALAMIN 500 MCG TAB PO SCH (08:42)
[2022-03-18] MEDS: FLUoxetine 20MG CAP PO SCH (08:43)
[2022-03-18] MEDS ORDERED: SENNA 8.6 MG TAB (SENOKOT) PO SCH (09:00)
[2022-03-18] MEDS ORDERED: MIRALAX *UNIT DOSE* 17GM PACKET PO SCH (09:00)
[2022-03-18] MEDS: ACETAMINOPHEN TAB 650MG DOSE (2X325MG) PO PRN (09:13)
[2022-03-18 10:00] VITALS: BP 123/59
[2022-03-18] MEDS ORDERED: PRED20TA PO (11:11)
[2022-03-18] MEDS ORDERED: AMOX875T2 PO (11:11)
[2022-03-18] MEDS ORDERED: MIRA3350 PO (11:45)
[2022-03-18 12:05] VITALS: O2SAT 97
[2022-03-18] MEDS: cefTRIAXone SOD 1 GM in D5W MINI-BAG PLUS 50 ML IV SCH (12:09)
[2022-03-18 14:00] VITALS: BP 126/84
== END 2022-03-18 15:20 | disposition home health service (06) | DRG 166 ==
LOC: M ED 19:01 → M ED INP 03-15 02:34 → ENRESERV 03-15 03:39 → M MSPAV 03-15 05:22
PROVIDERS: ADMIT Family Medicine; ATTEND Internal Medicine
PROC: B246ZZZ Ultrasonography of Right and Left Heart (ICD-10-PCS; 2022-03-16)
PROC: 0BBJ8ZX Excision of Left Lower Lung Lobe, Via Natural or Artificial Opening Endoscopic, Diagnostic (ICD-10-PCS; principal; 2022-03-17 08:00)
DX: R91.8 Other nonspecific abnormal finding of lung field (principal); J18.9 Pneumonia, unspecified organism; E87.3 Alkalosis; F31.9 Bipolar disorder, unspecified; F41.0 Panic disorder [episodic paroxysmal anxiety]; I08.0 Rheumatic disorders of both mitral and aortic valves; K64.9 Unspecified hemorrhoids; R06.02 Shortness of breath; F12.90 Cannabis use, unspecified, uncomplicated; E55.9 Vitamin D deficiency, unspecified; F32.A Depression, unspecified; M19.90 Unspecified osteoarthritis, unspecified site; Z85.828 Personal history of other malignant neoplasm of skin; Z86.010 Personal history of colon polyps; Z90.49 Acquired absence of other specified parts of digestive tract; Z98.84 Bariatric surgery status; Z98.41 Cataract extraction status, right eye; Z86.718 Personal history of other venous thrombosis and embolism; Z98.42 Cataract extraction status, left eye; Z95.828 Presence of other vascular implants and grafts; Z79.01 Long term (current) use of anticoagulants; Z79.899 Other long term (current) drug therapy

== ENCOUNTER → 2022-03-20 | Outpatient (CLI) | payer MEDICARE, MEDICAID ==
[~2022-03-20] MED LIST changes: +AMOX875T2 PO; +MIRA3350 PO
== END ==
LOC: M WHC 08:38
PROVIDERS: ATTEND Nurse Practitioner Family
DX: Z12.31 Encounter for screening mammogram for malignant neoplasm of breast (principal)

== ENCOUNTER → 2022-03-20 | Outpatient (CLI) | payer MEDICARE, MEDICAID | LOC: M PLALAB 10:35 | PROVIDERS: ATTEND Nurse Practitioner Family | DX: Z12.4 Encounter for screening for malignant neoplasm of cervix (principal); Z80.3 Family history of malignant neoplasm of breast | CPT/HCPCS: 36415; 87624; G0123 ==

== ENCOUNTER → 2022-03-20 | Outpatient (CLI) | payer MEDICARE, MEDICAID | LOC: M WHC 09:47 | PROVIDERS: ATTEND Nurse Practitioner Family | DX: Z12.31 Encounter for screening mammogram for malignant neoplasm of breast (principal) ==

== ENCOUNTER → 2022-03-28 | Outpatient (CLI) | payer MEDICARE, MEDICAID | LOC: M PLAIMG 11:11 | PROVIDERS: ATTEND Student in an Organized Health Care Education/Training Program | DX: R91.8 Other nonspecific abnormal finding of lung field (principal); R06.09 Other forms of dyspnea; Z79.899 Other long term (current) drug therapy ==

== ENCOUNTER → 2022-03-28 | Outpatient (CLI) | payer MEDICARE, MEDICAID ==
[2022-03-28 15:18] LABS: C REACTIVE PROTEIN QUANTITATIV < 0.40 MG/DL (<1.0)
[2022-03-28 15:24] LABS: ALBUMIN 3.2 G/DL (3.2-5.2); ALKALINE PHOSPHATASE 121 U/L (46-116); ALT/SGPT 31 U/L (7.0-40); AST/SGOT 37 U/L (<34); BILIRUBIN,TOTAL 0.4 MG/DL (0.3-1.2); BLOOD UREA NITROGEN 16 MG/DL (9-23); CALCIUM LEVEL 9.2 MG/DL (8.3-10.6); CARBON DIOXIDE LEVEL 25 MMOL/L (20-31); CHLORIDE LEVEL 104 MMOL/L (98-107); CHOLESTEROL LEVEL 203 MG/DL (<200); CHOLESTEROL RISK RATIO 3.27 (<5); CREATININE FOR GFR 0.72 MG/DL (0.55-1.30); FREE T4 1.19 NG/DL (0.89-1.76); GLOMERULAR FILTRATION RATE > 60.0 (>45); GLUCOSE, FASTING 113 MG/DL (74-106); LDL CHOLESTEROL 109.2 MG/DL (<100); NON-HDL-C 141 MG/DL; POTASSIUM SERUM 4.8 MMOL/L (3.5-5.1); SODIUM LEVEL 138 MMOL/L (136-145); THYROID STIMULATING HORMONE 2.547 uIU/ML (0.55-4.78); TOTAL 25(OH) VITAMIN D 44.2 NG/ML (20.0-100.0); TOTAL PROTEIN 6.6 G/DL (5.7-8.2); TRIGLYCERIDES LEVEL 159 MG/DL (<150); VITAMIN B12 LEVEL 1726 PG/ML (211-911)
[2022-03-28 15:39] LABS: CREATININE, URINE 157.1 MG/DL
[2022-03-28 15:40] LABS: MALB URINE SIEMENS < 3.0 MG/DL; MAU/CREAT RATIO 1.9 MCG/MG (0.0-30.0)
== END ==
LOC: M PLALAB 11:55
PROVIDERS: ATTEND Student in an Organized Health Care Education/Training Program
DX: R06.09 Other forms of dyspnea (principal); Z79.899 Other long term (current) drug therapy

== ENCOUNTER → 2022-04-09 | Outpatient (CLI) | payer MEDICARE, MEDICAID ==
[2022-04-09 12:40] LABS: HEMOGLOBIN A1c 5.1 % (4.0-6.0)
[2022-04-10 14:09] LABS: SSA SJOGRENS A <0.2 AI (0.0-0.9); SSB SJOGRENS B <0.2 AI (0.0-0.9)
== END ==
LOC: M WUC 08:59
PROVIDERS: ATTEND Internal Medicine Pulmonary Disease
DX: J84.9 Interstitial pulmonary disease, unspecified (principal)

== ENCOUNTER → 2022-04-24 | Outpatient (CLI) | payer MEDICARE, MEDICAID | LOC: M CARPUL 13:35 | PROVIDERS: ATTEND Internal Medicine Pulmonary Disease | DX: J84.9 Interstitial pulmonary disease, unspecified (principal) ==

== ENCOUNTER 2022-05-02 15:22 | Emergency (ER) | payer MEDICARE, MEDICAID ==
[~2022-05-02] VITALS: Ht 160 cm; Wt 70.9 kg
[2022-05-02 16:08] LABS: BASO % 0.2 % (0.0-1.0); HEMATOCRIT 39.9 % (36.0-47.0); HEMOGLOBIN 13.3 g/dl (12.0-15.5); LYMPH # 1.8 10^3/uL (1.5-5.0); LYMPH % 14.8 % (24.0-44.0); MEAN CORPUSCULAR HEMOGLOBIN 30.6 pg (27.0-33.0); MEAN CORPUSCULAR HGB CONC 33.3 g/dl (32.0-36.5); MEAN CORPUSCULAR VOLUME 91.9 fl (80.0-96.0); MONO # 0.8 10^3/uL (0.0-0.8); MONO % 6.3 % (2.0-8.0); NEUTROPHILS # 9.3 10^3/uL (1.5-8.5); NEUTROPHILS % 78.1 % (36.0-66.0); PLATELET COUNT, AUTOMATED 309 10^3/uL (150-450); RED BLOOD COUNT 4.34 10^6/uL (4.00-5.40); WHITE BLOOD COUNT 11.9 10^3/uL (4.0-10.0)
[2022-05-02 16:52] LABS: RSV AMPLIFICATION NEGATIVE (NEGATIVE)
[2022-05-02 16:57] LABS: ALBUMIN 3.2 G/DL (3.2-5.2); ALKALINE PHOSPHATASE 92 U/L (46-116); ALT/SGPT 56 U/L (7.0-40); AST/SGOT 34 U/L (<34); BILIRUBIN,DIRECT < 0.1 MG/DL (<0.4); BILIRUBIN,TOTAL 0.3 MG/DL (0.3-1.2); BLOOD UREA NITROGEN 20 MG/DL (9-23); CALCIUM LEVEL 8.9 MG/DL (8.3-10.6); CARBON DIOXIDE LEVEL 28 MMOL/L (20-31); CHLORIDE LEVEL 103 MMOL/L (98-107); CREATININE FOR GFR 0.62 MG/DL (0.55-1.30); GLOMERULAR FILTRATION RATE > 60.0 (>45); GLUCOSE, FASTING 83 MG/DL (74-106); POTASSIUM SERUM 4.5 MMOL/L (3.5-5.1); SODIUM LEVEL 137 MMOL/L (136-145)
[2022-05-02 17:35] LABS: TOTAL PROTEIN 6.3 G/DL (5.7-8.2)
[2022-05-02 18:22] VITALS: BP 140/86
== END 2022-05-02 18:35 | disposition home or self-care (01) ==
LOC: EDBD 15:22 → M ED 15:22
DX: J18.9 Pneumonia, unspecified organism (principal); Z98.84 Bariatric surgery status; Z86.718 Personal history of other venous thrombosis and embolism; F60.3 Borderline personality disorder

== ENCOUNTER → 2022-06-18 | Outpatient (CLI) | payer MEDICARE, MEDICAID ==
[~2022-06-18] MED LIST changes: +DULO1CAP4 PO; +FLUO60TA
[2022-06-18 15:19] LABS: BLOOD UREA NITROGEN 15 MG/DL (9-23); CALCIUM LEVEL 8.8 MG/DL (8.3-10.6); CARBON DIOXIDE LEVEL 26 MMOL/L (20-31); CHLORIDE LEVEL 104 MMOL/L (98-107); CREATININE FOR GFR 0.77 MG/DL (0.55-1.30); GLOMERULAR FILTRATION RATE > 60.0 (>45); GLUCOSE, FASTING 106 MG/DL (74-106); POTASSIUM SERUM 4.2 MMOL/L (3.5-5.1); SODIUM LEVEL 138 MMOL/L (136-145)
[2022-06-18 15:21] LABS: HEMATOCRIT 43.8 % (36.0-47.0); HEMOGLOBIN 14.4 g/dl (12.0-15.5); MEAN CORPUSCULAR HEMOGLOBIN 29.9 pg (27.0-33.0); MEAN CORPUSCULAR HGB CONC 32.9 g/dl (32.0-36.5); MEAN CORPUSCULAR VOLUME 91.1 fl (80.0-96.0); PLATELET COUNT, AUTOMATED 314 10^3/uL (150-450); RED BLOOD COUNT 4.81 10^6/uL (4.00-5.40); WHITE BLOOD COUNT 9.3 10^3/uL (4.0-10.0)
== END ==
LOC: M PLALAB 10:42
PROVIDERS: ATTEND Family Medicine
DX: R06.00 Dyspnea, unspecified (principal); Z86.718 Personal history of other venous thrombosis and embolism

== ENCOUNTER → 2022-06-18 | Outpatient (CLI) | payer MEDICARE, MEDICAID | LOC: M PLAIMG 10:34 | PROVIDERS: ATTEND Internal Medicine Hematology & Oncology | DX: Z86.718 Personal history of other venous thrombosis and embolism (principal) ==

== ENCOUNTER → 2022-06-18 | Outpatient (CLI) | payer MEDICARE, MEDICAID | LOC: M PLAIMG 10:38 | PROVIDERS: ATTEND Internal Medicine Pulmonary Disease | DX: J84.9 Interstitial pulmonary disease, unspecified (principal) ==

== ENCOUNTER → 2022-06-18 | Outpatient (CLI) | payer MEDICARE, MEDICAID | LOC: M PLAIMG 09:52 | PROVIDERS: ATTEND Internal Medicine Pulmonary Disease | DX: J47.9 Bronchiectasis, uncomplicated (principal); J84.9 Interstitial pulmonary disease, unspecified; R06.00 Dyspnea, unspecified; Z86.718 Personal history of other venous thrombosis and embolism; Z98.84 Bariatric surgery status; Z90.49 Acquired absence of other specified parts of digestive tract ==

== ENCOUNTER → 2022-08-15 | Outpatient (CLI) | payer MEDICARE, MEDICAID ==
[2022-08-15 16:35] LABS: HEMOGLOBIN A1c 5.2 % (4.0-6.0)
== END ==
LOC: M PLALAB 12:55
PROVIDERS: ATTEND Student in an Organized Health Care Education/Training Program
DX: F19.20 Other psychoactive substance dependence, uncomplicated (principal); Z79.899 Other long term (current) drug therapy

== ENCOUNTER → 2022-09-19 | Outpatient (CLI) | payer MEDICARE, MEDICAID | LOC: M WUC 15:54 | DX: M19.072 Primary osteoarthritis, left ankle and foot (principal) ==

== ENCOUNTER → 2022-10-06 | Outpatient (CLI) | payer MEDICARE, MEDICAID | LOC: M RAD 12:22 | PROVIDERS: ATTEND Internal Medicine Pulmonary Disease | DX: R91.8 Other nonspecific abnormal finding of lung field (principal) ==

== ENCOUNTER → 2022-10-06 | Outpatient (CLI) | payer MEDICARE, MEDICAID ==
[2022-10-06 13:23] LABS: IONIZED CALCIUM 4.8 MG/DL (4.5-5.3)
[2022-10-06 14:18] LABS: HEMATOCRIT 43.7 % (36.0-47.0); HEMOGLOBIN 13.7 g/dl (12.0-15.5); MEAN CORPUSCULAR HEMOGLOBIN 29.7 pg (27.0-33.0); MEAN CORPUSCULAR HGB CONC 31.4 g/dl (32.0-36.5); MEAN CORPUSCULAR VOLUME 94.6 fl (80.0-96.0); PLATELET COUNT, AUTOMATED 306 10^3/uL (150-450); RED BLOOD COUNT 4.62 10^6/uL (4.00-5.40); WHITE BLOOD COUNT 6.3 10^3/uL (4.0-10.0)
[2022-10-06 14:49] LABS: IRON (FE) 128 UG/DL (50-170); PERCENT SATURATION 31.1 % (13.2-45.0); TOTAL IRON BINDING CAPACITY 411 UG/DL (250-425)
[2022-10-06 14:54] LABS: ALBUMIN 3.5 G/DL (3.2-5.2); ALKALINE PHOSPHATASE 98 U/L (46-116); ALT/SGPT 30 U/L (7.0-40); AST/SGOT 26 U/L (<34); BILIRUBIN,DIRECT 0.2 MG/DL (<0.4); BILIRUBIN,TOTAL 0.7 MG/DL (0.3-1.2); CHOLESTEROL LEVEL 192 MG/DL (<200); CHOLESTEROL RISK RATIO 2.14 (<5); FERRITIN 38.6 NG/ML (7.3-270.7); FOLATE > 24.0 NG/ML (>5.4); HDL CHOLESTEROL 89.6 MG/DL (>40); LDL CHOLESTEROL 87.8 MG/DL (<100); MAGNESIUM LEVEL 2.2 MG/DL (1.8-2.4); NON-HDL-C 102.4 MG/DL; THYROID STIMULATING HORMONE 1.066 uIU/ML (0.55-4.78); TOTAL 25(OH) VITAMIN D 54.8 NG/ML (20.0-100.0); TOTAL PROTEIN 6.7 G/DL (5.7-8.2); TRIGLYCERIDES LEVEL 73 MG/DL (<150); VITAMIN B12 LEVEL 1558 PG/ML (211-911)
[2022-10-10 13:08] LABS: VITAMIN A, RETINOL LEVEL 26.9 ug/dL (22.0-69.5); VITAMIN B1 LEVEL WHOLE BLOOD 145.3 nmol/L (66.5-200.0)
== END ==
LOC: M LAB 12:16
PROVIDERS: ATTEND Surgery
DX: R63.5 Abnormal weight gain (principal); Z98.84 Bariatric surgery status; Z79.899 Other long term (current) drug therapy

== ENCOUNTER → 2022-12-23 | Outpatient (CLI) | payer OTHER, MEDICAID ==
[~2022-12-23] MED LIST changes: +E-Z-GAS II EFFERVESCENT PACKET (SODIUM BICARB./CITRIC ACID/SIMETHICONE) As Ordered ONE; +E-Z-HD 98% w/w 340GM SUSP BTL As Ordered ONE; +E-Z-PAQUE 96% w/w SUSP 176GM BTL As Ordered ONE
== END ==
LOC: M RAD 09:08
PROVIDERS: ATTEND Surgery
DX: R63.5 Abnormal weight gain (principal); K44.9 Diaphragmatic hernia without obstruction or gangrene; Z98.84 Bariatric surgery status

== ENCOUNTER → 2022-12-26 | Outpatient (CLI) | payer OTHER, MEDICAID ==
[~2022-12-26] MED LIST changes: -E-Z-GAS II EFFERVESCENT PACKET (SODIUM BICARB./CITRIC ACID/SIMETHICONE) As Ordered ONE; -E-Z-HD 98% w/w 340GM SUSP BTL As Ordered ONE; -E-Z-PAQUE 96% w/w SUSP 176GM BTL As Ordered ONE
[2022-12-26 12:21] LABS: BASO % 0.5 % (0.0-1.0); EOS # 0.1 10^3/uL (0.0-0.5); EOS % 1.8 % (0.0-3.0); HEMATOCRIT 41.9 % (36.0-47.0); HEMOGLOBIN 13.5 g/dl (12.0-15.5); LYMPH # 2.5 10^3/uL (1.5-5.0); LYMPH % 37.6 % (24.0-44.0); MEAN CORPUSCULAR HEMOGLOBIN 30.8 pg (27.0-33.0); MEAN CORPUSCULAR HGB CONC 32.2 g/dl (32.0-36.5); MEAN CORPUSCULAR VOLUME 95.7 fl (80.0-96.0); MONO # 0.5 10^3/uL (0.0-0.8); MONO % 7.9 % (2.0-8.0); NEUTROPHILS # 3.4 10^3/uL (1.5-8.5); NEUTROPHILS % 51.9 % (36.0-66.0); PLATELET COUNT, AUTOMATED 279 10^3/uL (150-450); RED BLOOD COUNT 4.38 10^6/uL (4.00-5.40); WHITE BLOOD COUNT 6.6 10^3/uL (4.0-10.0)
[2022-12-26 12:53] LABS: BLOOD UREA NITROGEN 11 MG/DL (9-23); CALCIUM LEVEL 8.9 MG/DL (8.3-10.6); CARBON DIOXIDE LEVEL 31 MMOL/L (20-31); CHLORIDE LEVEL 108 MMOL/L (98-107); CREATININE FOR GFR 0.77 MG/DL (0.55-1.30); GLOMERULAR FILTRATION RATE > 60.0 (>45); GLUCOSE, FASTING 103 MG/DL (74-106); SODIUM LEVEL 142 MMOL/L (136-145)
== END ==
LOC: M EKG 11:01
PROVIDERS: ATTEND Podiatrist
DX: M79.672 Pain in left foot (principal); R91.8 Other nonspecific abnormal finding of lung field

== ENCOUNTER 2023-03-04 14:55 | Emergency (ER) | payer OTHER, MEDICAID ==
[~2023-03-04] VITALS: Ht 160 cm; Wt 75.7 kg
[~2023-03-04 14:55] MED LIST changes: +AMOX875T PO; +FOLI800C PO; +MULT1TAB50 PO; +OMEP-173 PO; +PRED10TA2 PO; +PYRI100L PO; +RA M500C PO; +VRAY3CAP PO; +ZOLP10TA2 PO
[2023-03-04] MEDS ORDERED: ONDA4TAB6 PO (17:40)
[2023-03-04 18:14] VITALS: BP 117/70; TEMP 97; O2SAT 99
== END 2023-03-04 18:16 | disposition home or self-care (01) ==
LOC: M ED 14:55
DX: S06.0X0A Concussion without loss of consciousness, initial encounter (principal); W18.40XA Slipping, tripping and stumbling without falling, unspecified, initial encounter; Y92.009 Unspecified place in unspecified non-institutional (private) residence as the place of occurrence of the external cause; Y93.9 Activity, unspecified; Y99.9 Unspecified external cause status; R26.81 Unsteadiness on feet; F31.9 Bipolar disorder, unspecified; Z86.718 Personal history of other venous thrombosis and embolism; Z87.442 Personal history of urinary calculi; M54.9 Dorsalgia, unspecified; F10.10 Alcohol abuse, uncomplicated; F41.9 Anxiety disorder, unspecified; F32.A Depression, unspecified; Z98.84 Bariatric surgery status; M50.322 Other cervical disc degeneration at C5-C6 level; Z79.01 Long term (current) use of anticoagulants; Z79.899 Other long term (current) drug therapy

== ENCOUNTER → 2023-03-17 | Outpatient (CLI) | payer OTHER, MEDICAID ==
[~2023-03-17] MED LIST changes: +ONDA4TAB6 PO
== END ==
LOC: M WHC 12:57
PROVIDERS: ATTEND Student in an Organized Health Care Education/Training Program
DX: Z13.820 Encounter for screening for osteoporosis (principal); M85.851 Other specified disorders of bone density and structure, right thigh; M85.852 Other specified disorders of bone density and structure, left thigh; M84.88 Other disorders of continuity of bone, other site

== ENCOUNTER → 2023-04-15 | Outpatient (CLI) | payer OTHER, MEDICAID ==
[~2023-04-15] MED LIST changes: -KLON0.5T PO; +KLON0.5T8 PO
[2023-04-15 16:04] LABS: ALBUMIN 3.4 G/DL (3.2-5.2); BLOOD UREA NITROGEN 14 MG/DL (9-23); CARBON DIOXIDE LEVEL 27 MMOL/L (20-31); CHLORIDE LEVEL 105 MMOL/L (98-107); CREATININE FOR GFR 0.61 MG/DL (0.55-1.30); GLOMERULAR FILTRATION RATE > 60.0 (>45); GLUCOSE, FASTING 81 MG/DL (74-106); PHOSPHORUS LEVEL 4.4 MG/DL (2.4-5.1); POTASSIUM SERUM 4.5 MMOL/L (3.5-5.1); SODIUM LEVEL 139 MMOL/L (136-145)
== END ==
LOC: M LAB 14:43
PROVIDERS: ATTEND Student in an Organized Health Care Education/Training Program
DX: M81.0 Age-related osteoporosis without current pathological fracture (principal)

== ENCOUNTER 2023-04-30 15:27 | Outpatient (CLI) | payer OTHER, MEDICAID ==
[~2023-04-30 15:27] MED LIST changes: +ACETAMINOPHEN TAB 650MG DOSE (2X325MG) PO PRN; -KLON1TAB PO; +KLON1TAB13 PO; +diphenhydrAMINE 50MG CAP PO PRN
[2023-04-30 16:05] VITALS: BP 131/76; O2SAT 96
[2023-04-30] MEDS: ZOLEDRONIC ACID 5 MG in IV 1 EA IV ONE (16:27)
[2023-04-30 17:00] VITALS: BP 130/75; O2SAT 98
== END 2023-04-30 17:00 ==
LOC: M INFU 15:27
PROVIDERS: ATTEND Student in an Organized Health Care Education/Training Program
DX: M81.8 Other osteoporosis without current pathological fracture (principal)
CPT/HCPCS: 96413; J3489

== ENCOUNTER → 2023-05-20 | Outpatient (CLI) | payer OTHER, MEDICAID ==
[~2023-05-20] MED LIST changes: -ACETAMINOPHEN TAB 650MG DOSE (2X325MG) PO PRN; -diphenhydrAMINE 50MG CAP PO PRN
== END ==
LOC: M WHC 09:29
PROVIDERS: ATTEND Student in an Organized Health Care Education/Training Program
DX: Z12.31 Encounter for screening mammogram for malignant neoplasm of breast (principal)

== ENCOUNTER → 2023-05-29 | Outpatient (CLI) | payer OTHER, MEDICAID | LOC: M RAD 09:25 | PROVIDERS: ATTEND Internal Medicine Pulmonary Disease | DX: R91.8 Other nonspecific abnormal finding of lung field (principal) ==

== ENCOUNTER 2023-07-19 08:00 | Emergency (ER) | payer OTHER, MEDICAID ==
[~2023-07-19] VITALS: Ht 157.5 cm; Wt 81.4 kg
[~2023-07-19 08:00] MED LIST changes: +FLUO-365 PO; -FLUO20CA22 PO; +ONDA-282 PO; -ONDA4TAB6 PO
[2023-07-19 09:03] LABS: BASO % 0.5 % (0.0-1.0); EOS # 0.2 10^3/uL (0.0-0.5); EOS % 3.2 % (0.0-3.0); HEMOGLOBIN 12.6 g/dl (12.0-15.5); LYMPH # 2.7 10^3/uL (1.5-5.0); LYMPH % 42.4 % (24.0-44.0); MEAN CORPUSCULAR HEMOGLOBIN 30.9 pg (27.0-33.0); MEAN CORPUSCULAR HGB CONC 32.3 g/dl (32.0-36.5); MEAN CORPUSCULAR VOLUME 95.6 fl (80.0-96.0); MONO # 0.6 10^3/uL (0.0-0.8); MONO % 9.6 % (2.0-8.0); NEUTROPHILS # 2.8 10^3/uL (1.5-8.5); PLATELET COUNT, AUTOMATED 219 10^3/uL (150-450); RED BLOOD COUNT 4.08 10^6/uL (4.00-5.40); WHITE BLOOD COUNT 6.3 10^3/uL (4.0-10.0)
[2023-07-19 09:11] LABS: INR 2.53; PROTHROMBIN TIME 26.3 SECONDS (12.5-14.5)
[2023-07-19 09:24] LABS: ALBUMIN 2.9 G/DL (3.2-5.2); ALKALINE PHOSPHATASE 94 U/L (46-116); ALT/SGPT 26 U/L (7.0-40); AST/SGOT 26 U/L (<34); BILIRUBIN,TOTAL 0.4 MG/DL (0.3-1.2); BLOOD UREA NITROGEN 16 MG/DL (9-23); CALCIUM LEVEL 8.4 MG/DL (8.3-10.6); CARBON DIOXIDE LEVEL 26 MMOL/L (20-31); CHLORIDE LEVEL 110 MMOL/L (98-107); GLOMERULAR FILTRATION RATE > 60.0 (>45); GLUCOSE, FASTING 87 MG/DL (74-106); POTASSIUM SERUM 3.4 MMOL/L (3.5-5.1); SODIUM LEVEL 141 MMOL/L (136-145); TOTAL PROTEIN 5.7 G/DL (5.7-8.2)
[2023-07-19 10:00] VITALS: BP 113/67; TEMP 96.3; O2SAT 99
[2023-07-19] MEDS ORDERED: BACIOIN23 OS (10:09)
== END 2023-07-19 11:03 | disposition home or self-care (01) ==
LOC: EDBD 08:00 → M ED 08:00
DX: I82.511 Chronic embolism and thrombosis of right femoral vein (principal); M71.22 Synovial cyst of popliteal space [Baker], left knee; F31.9 Bipolar disorder, unspecified; Z79.2 Long term (current) use of antibiotics; Z79.899 Other long term (current) drug therapy; Z79.52 Long term (current) use of systemic steroids; Z79.83 Long term (current) use of bisphosphonates

== ENCOUNTER → 2023-07-30 | Outpatient (CLI) | payer OTHER, MEDICAID ==
[~2023-07-30] MED LIST changes: +BACIOIN23 OS
[2023-07-30 14:08] LABS: BLOOD UREA NITROGEN 16 MG/DL (9-23); CALCIUM LEVEL 8.9 MG/DL (8.3-10.6); CARBON DIOXIDE LEVEL 27 MMOL/L (20-31); CHLORIDE LEVEL 105 MMOL/L (98-107); GLOMERULAR FILTRATION RATE > 60.0 (>45); GLUCOSE, FASTING 103 MG/DL (74-106); POTASSIUM SERUM 4.7 MMOL/L (3.5-5.1); SODIUM LEVEL 137 MMOL/L (136-145)
== END ==
LOC: M PLALAB 10:57
PROVIDERS: ATTEND Student in an Organized Health Care Education/Training Program
DX: E87.6 Hypokalemia (principal); R79.0 Abnormal level of blood mineral

== ENCOUNTER → 2023-09-07 | Outpatient (CLI) | payer OTHER, MEDICAID ==
[~2023-09-07] MED LIST changes: +DEXTROAMP-AMPHETAMIN
[2023-09-07 17:29] LABS: ALBUMIN 3.2 G/DL (3.2-5.2); ALKALINE PHOSPHATASE 92 U/L (46-116); ALT/SGPT 20 U/L (7.0-40); AST/SGOT 17 U/L (<34); BILIRUBIN,TOTAL 0.3 MG/DL (0.3-1.2); BLOOD UREA NITROGEN 20 MG/DL (9-23); CALCIUM LEVEL 8.8 MG/DL (8.3-10.6); CARBON DIOXIDE LEVEL 27 MMOL/L (20-31); CHLORIDE LEVEL 108 MMOL/L (98-107); CREATININE FOR GFR 0.72 MG/DL (0.55-1.30); GLOMERULAR FILTRATION RATE > 60.0 (>45); GLUCOSE, FASTING 101 MG/DL (74-106); SODIUM LEVEL 141 MMOL/L (136-145); TOTAL PROTEIN 6.1 G/DL (5.7-8.2)
== END ==
LOC: M LAB 16:23
PROVIDERS: ATTEND Internal Medicine Hematology & Oncology
DX: I82.409 Acute embolism and thrombosis of unspecified deep veins of unspecified lower extremity (principal)

== ENCOUNTER → 2023-09-18 | Outpatient (CLI) | payer OTHER, MEDICAID ==
[~2023-09-18] MED LIST changes: +ISOVUE-370 76% 100ML VIAL As Ordered ONE
== END ==
LOC: M RAD 14:46
PROVIDERS: ATTEND Internal Medicine Hematology & Oncology
DX: Z95.828 Presence of other vascular implants and grafts (principal)
CPT/HCPCS: 74177; Q9967

== ENCOUNTER → 2023-11-03 | Outpatient (CLI) | payer OTHER, MEDICAID ==
[~2023-11-03] MED LIST changes: -ISOVUE-370 76% 100ML VIAL As Ordered ONE
[2023-11-03 13:57] LABS: BASO # 0.1 10^3/uL (0.0-0.2); BASO % 0.7 % (0.0-1.0); EOS # 0.1 10^3/uL (0.0-0.5); EOS % 1.4 % (0.0-3.0); HEMATOCRIT 41.2 % (36.0-47.0); HEMOGLOBIN 13.5 g/dl (12.0-15.5); LYMPH # 2.9 10^3/uL (1.5-5.0); LYMPH % 40.6 % (24.0-44.0); MEAN CORPUSCULAR HGB CONC 32.8 g/dl (32.0-36.5); MEAN CORPUSCULAR VOLUME 94.5 fl (80.0-96.0); MONO # 0.6 10^3/uL (0.0-0.8); NEUTROPHILS # 3.4 10^3/uL (1.5-8.5); PLATELET COUNT, AUTOMATED 271 10^3/uL (150-450); RED BLOOD COUNT 4.36 10^6/uL (4.00-5.40); WHITE BLOOD COUNT 7.1 10^3/uL (4.0-10.0)
[2023-11-03 14:16] LABS: ALBUMIN 3.7 G/DL (3.2-5.2); ALKALINE PHOSPHATASE 95 U/L (46-116); ALT/SGPT 27 U/L (7.0-40); AST/SGOT 19 U/L (<34); BILIRUBIN,TOTAL 0.6 MG/DL (0.3-1.2); BLOOD UREA NITROGEN 10 MG/DL (9-23); CALCIUM LEVEL 9.8 MG/DL (8.3-10.6); CARBON DIOXIDE LEVEL 29 MMOL/L (20-31); CHLORIDE LEVEL 107 MMOL/L (98-107); CREATININE FOR GFR 0.71 MG/DL (0.55-1.30); GLOMERULAR FILTRATION RATE > 60.0 (>45); GLUCOSE, FASTING 102 MG/DL (74-106); POTASSIUM SERUM 4.8 MMOL/L (3.5-5.1); SODIUM LEVEL 138 MMOL/L (136-145)
== END ==
LOC: M PLALAB 10:51 → M LAB 10:51
PROVIDERS: ATTEND Student in an Organized Health Care Education/Training Program
DX: R60.0 Localized edema (principal)

== ENCOUNTER → 2023-11-25 | Outpatient (CLI) | payer OTHER, MEDICAID | LOC: M RAD 13:04 | PROVIDERS: ATTEND Internal Medicine Pulmonary Disease | DX: R91.8 Other nonspecific abnormal finding of lung field (principal) ==

== ENCOUNTER → 2023-12-30 | Outpatient (CLI) | payer OTHER, MEDICAID | LOC: M CARPUL 10:03 | PROVIDERS: ATTEND Student in an Organized Health Care Education/Training Program | DX: R60.0 Localized edema (principal); I35.1 Nonrheumatic aortic (valve) insufficiency ==

== ENCOUNTER 2024-01-22 12:42 | Day surgery (SDC) | payer OTHER, MEDICAID ==
[~2024-01-22] VITALS: Ht 157.5 cm; Wt 78.2 kg
[~2024-01-22 12:42] MED LIST changes: +ABIL1TAB11 PO; +AMPH1CAP14 PO; +ASEN10TA SL; +FOLI1TAB11 PO; +KRIL300C2 PO; +POTA99TA10 PO; +VITA-168 PO; +VITA500C24 PO; +VITA500T40 PO
[2024-01-22] MEDS ORDERED: propofoL 200 MG/20 ML VIAL As Ordered ONE (15:26)
[2024-01-22] MEDS ORDERED: LIDOCAINE 2% 100MG/5ML SDV (FOR ANES.) As Ordered ONE (15:27)
[2024-01-22] MEDS ORDERED: fentaNYL 100 MCG/2 ML INJECTION As Ordered ONE (15:41)
[2024-01-22 16:00] VITALS: BP 104/66; O2SAT 99
== END 2024-01-22 16:16 | disposition home or self-care (01) ==
LOC: M OPP 12:42
PROVIDERS: ATTEND Internal Medicine Gastroenterology
DX: Z01.818 Encounter for other preprocedural examination (principal); E66.01 Morbid (severe) obesity due to excess calories; K44.9 Diaphragmatic hernia without obstruction or gangrene; K21.9 Gastro-esophageal reflux disease without esophagitis; Z98.0 Intestinal bypass and anastomosis status; Z98.84 Bariatric surgery status; J84.9 Interstitial pulmonary disease, unspecified; Z86.718 Personal history of other venous thrombosis and embolism; Z79.01 Long term (current) use of anticoagulants; Z79.899 Other long term (current) drug therapy; Z85.828 Personal history of other malignant neoplasm of skin; Z68.30 Body mass index [BMI] 30.0-30.9, adult
CPT/HCPCS: 43239; 88305; J3010

== ENCOUNTER 2024-02-05 16:01 | Emergency (ER) | payer OTHER, MEDICAID ==
[~2024-02-05] VITALS: Ht 157.5 cm; Wt 79.2 kg
[2024-02-05 16:07] VITALS: BP 137/79; TEMP 97.1; O2SAT 98
== END 2024-02-05 18:23 | disposition left against medical advice (07) ==
LOC: M ED 16:01
DX: Z53.21 Procedure and treatment not carried out due to patient leaving prior to being seen by health care provider (principal)

== ENCOUNTER → 2024-02-08 | Outpatient (CLI) | payer OTHER, MEDICAID ==
[2024-02-13 08:58] LABS: APTT APSCOMP 40 sec (<=40); DRVTT Screen Seconds 71 sec (<=45); DRVVT CONFIRM Negative (Negative)
[2024-02-14 07:38] LABS: Anticardiolipin Ab, IGG < 2.0 GPL-U/mL (<20.0); Anticardiolipin Ab, IGM < 2.0 MPL-U/mL (<20.0); Anticardiolipin Ab, IgA < 2.0 APL-U/mL (<20.0); Beta-2 GLYCOPROTEIN I, IGG < 2.0 U/mL (<20.0); Beta-2 Glycoprotein I, IGA < 2.0 U/mL (<20.0); Beta-2 Glycoprotein I, IGM < 2.0 U/mL (<20.0)
== END ==
LOC: M PLALAB 11:29
PROVIDERS: ATTEND Internal Medicine Hematology
DX: I82.90 Acute embolism and thrombosis of unspecified vein (principal)

== ENCOUNTER 2024-02-12 15:35 | Emergency (ER) | payer OTHER, MEDICAID ==
[~2024-02-12] VITALS: Ht 157.5 cm; Wt 79.5 kg
[2024-02-12 16:31] LABS: BASO % 0.5 % (0.0-1.0); EOS # 0.1 10^3/uL (0.0-0.5); EOS % 1.7 % (0.0-3.0); HEMATOCRIT 39.8 % (36.0-47.0); LYMPH # 2.9 10^3/uL (1.5-5.0); LYMPH % 34.8 % (24.0-44.0); MEAN CORPUSCULAR HEMOGLOBIN 31.3 pg (27.0-33.0); MEAN CORPUSCULAR HGB CONC 32.7 g/dl (32.0-36.5); MEAN CORPUSCULAR VOLUME 95.7 fl (80.0-96.0); MONO # 0.5 10^3/uL (0.0-0.8); MONO % 6.3 % (2.0-8.0); NEUTROPHILS # 4.7 10^3/uL (1.5-8.5); NEUTROPHILS % 56.5 % (36.0-66.0); PLATELET COUNT, AUTOMATED 145 10^3/uL (150-450); RED BLOOD COUNT 4.16 10^6/uL (4.00-5.40); WHITE BLOOD COUNT 8.4 10^3/uL (4.0-10.0)
[2024-02-12] MEDS: methylPREDNISolone 125MG 2ML VIAL IV ONE (16:37)
[2024-02-12] MEDS: LORazepam 2 MG/ML 1ML VIAL IV STA (16:37)
[2024-02-12 16:56] LABS: ALKALINE PHOSPHATASE 89 U/L (35-104); ALT/SGPT 37 U/L (7.0-40); AST/SGOT 76 U/L (<34); BILIRUBIN,DIRECT < 0.1 MG/DL (<0.4); BILIRUBIN,TOTAL 0.2 MG/DL (0.3-1.2); BLOOD UREA NITROGEN 20 MG/DL (9-23); CALCIUM LEVEL 8.8 MG/DL (8.3-10.6); CARBON DIOXIDE LEVEL 24 MMOL/L (20-31); CHLORIDE LEVEL 109 MMOL/L (98-107); CREATININE FOR GFR 0.57 MG/DL (0.55-1.30); GLOMERULAR FILTRATION RATE > 60.0 (>45); GLUCOSE, FASTING 51 MG/DL (74-106); POTASSIUM SERUM 5.1 MMOL/L (3.5-5.1); SODIUM LEVEL 141 MMOL/L (136-145); TOTAL PROTEIN 6.8 G/DL (5.7-8.2)
[2024-02-12] MEDS ORDERED: PRED10TA2 PO (17:37)
[2024-02-12 17:50] VITALS: BP 115/63; TEMP 96.9; O2SAT 98
== END 2024-02-12 18:04 | disposition home or self-care (01) ==
LOC: M ED 15:35
DX: J45.909 Unspecified asthma, uncomplicated (principal); F41.9 Anxiety disorder, unspecified; F31.9 Bipolar disorder, unspecified; Z87.442 Personal history of urinary calculi; Z98.84 Bariatric surgery status; Z79.01 Long term (current) use of anticoagulants; Z79.899 Other long term (current) drug therapy
CPT/HCPCS: 71045; 80048; 80076; 85025; 93005; 93041; 94760; 96374; 96375; 99285; J2060; J2919

== ENCOUNTER → 2024-05-19 | Outpatient (CLI) | payer MEDICARE, MEDICAID | LOC: M PLAIMG 12:02 | PROVIDERS: ATTEND Internal Medicine Pulmonary Disease | DX: R91.8 Other nonspecific abnormal finding of lung field (principal) ==

== ENCOUNTER → 2024-05-24 | Outpatient (CLI) | payer MEDICARE, MEDICAID | LOC: M WHC 09:35 | PROVIDERS: ATTEND Nurse Practitioner Family | DX: Z12.31 Encounter for screening mammogram for malignant neoplasm of breast (principal) ==

== ENCOUNTER → 2024-05-24 | Outpatient (REF) | payer MEDICARE, MEDICAID ==
[2024-05-27 15:52] LABS: HPV APTIMA Not Detected (Not Detected)
== END ==
LOC: M SFHCWAGY 13:22
PROVIDERS: ATTEND Nurse Practitioner Family
DX: Z12.4 Encounter for screening for malignant neoplasm of cervix (principal)
CPT/HCPCS: 87624; G0123

== ENCOUNTER 2024-05-28 02:26 | Emergency (ER) | payer MEDICARE, MEDICAID ==
[~2024-05-28] VITALS: Ht 154.9 cm; Wt 77.1 kg
[2024-05-28 05:43] VITALS: BP 140/67; TEMP 96.6; O2SAT 98
== END 2024-05-28 05:55 | disposition home or self-care (01) ==
LOC: M ED 02:26
DX: S00.03XA Contusion of scalp, initial encounter (principal); W06.XXXA Fall from bed, initial encounter; Y92.009 Unspecified place in unspecified non-institutional (private) residence as the place of occurrence of the external cause; Y93.9 Activity, unspecified; Y99.9 Unspecified external cause status; J84.170 Interstitial lung disease with progressive fibrotic phenotype in diseases classified elsewhere; E55.9 Vitamin D deficiency, unspecified; F31.9 Bipolar disorder, unspecified; F41.9 Anxiety disorder, unspecified; Z86.718 Personal history of other venous thrombosis and embolism; Z79.01 Long term (current) use of anticoagulants; Z79.899 Other long term (current) drug therapy

== ENCOUNTER → 2024-08-23 | Outpatient (CLI) | payer MEDICARE, MEDICAID ==
[~2024-08-23] MED LIST changes: -AMBI10TA PO; +BUPR-670 PO; -BUPR1TAB52 PO; +E-Z-GAS II EFFERVESCENT PACKET (SODIUM BICARB./CITRIC ACID/SIMETHICONE) As Ordered ONE; +E-Z-HD 98% w/w 340 GM SUSP BTL As Ordered ONE; +E-Z-PAQUE 96% w/w SUSP 176 GM BTL As Ordered ONE; +ZOLP-533 PO
== END ==
LOC: M RAD 08:01
PROVIDERS: ATTEND Student in an Organized Health Care Education/Training Program
DX: Z98.84 Bariatric surgery status (principal)

== ENCOUNTER → 2024-09-05 | Outpatient (REF) | payer MEDICARE ==
[~2024-09-05] MED LIST changes: -E-Z-GAS II EFFERVESCENT PACKET (SODIUM BICARB./CITRIC ACID/SIMETHICONE) As Ordered ONE; -E-Z-HD 98% w/w 340 GM SUSP BTL As Ordered ONE; -E-Z-PAQUE 96% w/w SUSP 176 GM BTL As Ordered ONE
== END ==
LOC: M SFHCPLAZ 10:17
DX: Z53.9 Procedure and treatment not carried out, unspecified reason (principal)

== ENCOUNTER → 2024-09-09 | Outpatient (CLI) | payer MEDICARE ==
[2024-09-09 15:34] LABS: CALCIUM LEVEL 8.9 MG/DL (8.3-10.6); CARBON DIOXIDE LEVEL 29.0 MMOL/L (20-31); CHLORIDE LEVEL 104.0 MMOL/L (98-107); CREATININE FOR GFR 0.75 MG/DL (0.55-1.30); GLOMERULAR FILTRATION RATE 88.3 (>45); MAGNESIUM LEVEL 2.1 MG/DL (1.8-2.4); PHOSPHORUS LEVEL 3.5 MG/DL (2.4-5.1); POTASSIUM SERUM 4.5 MMOL/L (3.5-5.1); SODIUM LEVEL 143.0 MMOL/L (136-145)
[2024-09-09 15:36] LABS: TOTAL 25(OH) VITAMIN D 40.0 NG/ML (20.0-100.0)
== END ==
LOC: M PLALAB 13:20
DX: Z51.81 Encounter for therapeutic drug level monitoring (principal); Z79.899 Other long term (current) drug therapy

== ENCOUNTER 2024-11-07 06:43 | Day surgery (SDC) | payer MEDICARE ==
[~2024-11-07] VITALS: Ht 157.5 cm; Wt 76.7 kg
[~2024-11-07 06:43] MED LIST changes: +ARIP10TA63 PO; +LIFI1DRO4 OU; -LUMA42CA PO; +LUMA42CA4 PO; +ZOLP10TA11 PO; -ZOLP10TA2 PO
[2024-11-07] MEDS ORDERED: LIDOCAINE 2% INJ 100 MG/5 ML SYRINGE As Ordered ONE (08:08)
[2024-11-07] MEDS ORDERED: SUCCINYLCHOLINE 100MG/5ML SYRINGE As Ordered ONE (08:09)
[2024-11-07 08:26] VITALS: TEMP 97.8
[2024-11-07 08:46] VITALS: BP 118/66; O2SAT 96
== END 2024-11-07 08:57 | disposition home or self-care (01) ==
LOC: M OPP 06:43
PROVIDERS: ATTEND Internal Medicine Gastroenterology
DX: Z12.11 Encounter for screening for malignant neoplasm of colon (principal); D12.2 Benign neoplasm of ascending colon; D12.8 Benign neoplasm of rectum; K57.30 Diverticulosis of large intestine without perforation or abscess without bleeding; K64.8 Other hemorrhoids; Z86.0100 Personal history of colon polyps, unspecified; Z79.01 Long term (current) use of anticoagulants; Z79.899 Other long term (current) drug therapy; Z86.718 Personal history of other venous thrombosis and embolism; Z98.84 Bariatric surgery status

== ENCOUNTER → 2025-01-03 | Outpatient (REF) | payer MEDICARE ==
[2025-01-03 12:49] LABS: BASO # 0.0 10^3/uL (0.0-0.2); BASO % 0.4 % (0.0-1.0); EOS # 0.1 10^3/uL (0.0-0.5); EOS % 0.9 % (0.0-3.0); LYMPH # 2.2 10^3/uL (1.5-5.0); LYMPH % 21.7 % (24.0-44.0); MONO # 0.6 10^3/uL (0.0-0.8); MONO % 5.4 % (2.0-8.0); NEUTROPHILS # 7.2 10^3/uL (1.5-8.5); NEUTROPHILS % 71.2 % (36.0-66.0); PLATELET COUNT, AUTOMATED 304 10^3/uL (150-450)
[2025-01-03 13:24] LABS: ALT/SGPT 25 U/L (7.0-40); AST/SGOT 23 U/L (<34); CALCIUM LEVEL 9.0 MG/DL (8.3-10.6); CARBON DIOXIDE LEVEL 25 MMOL/L (20-31); CHLORIDE LEVEL 103 MMOL/L (98-107); CHOLESTEROL LEVEL 186 MG/DL (<200); CHOLESTEROL RISK RATIO 2.33 (<5); CREATININE FOR GFR 0.69 MG/DL (0.55-1.30); GLOMERULAR FILTRATION RATE > 90.0 (>45); LDL CHOLESTEROL 93.5 MG/DL (<100); NON-HDL-C 106.5 MG/DL; POTASSIUM SERUM 4.5 MMOL/L (3.5-5.1); SODIUM LEVEL 138 MMOL/L (136-145); TRIGLYCERIDES LEVEL 65 MG/DL (<150)
[2025-01-03 13:30] LABS: INR 1.92
[2025-01-03 13:32] LABS: ESTIMATED AVERAGE GLUCOSE 105.0 MG/DL (60-110)
[2025-01-03 13:37] LABS: FREE T4 1.01 NG/DL (0.89-1.76)
[2025-01-03 13:39] LABS: TOTAL 25(OH) VITAMIN D 35.5 NG/ML (20.0-100.0)
== END ==
LOC: M LAB REF 12:33
DX: Z79.01 Long term (current) use of anticoagulants (principal); G47.00 Insomnia, unspecified; M81.8 Other osteoporosis without current pathological fracture; Z98.84 Bariatric surgery status; Z79.899 Other long term (current) drug therapy

== ENCOUNTER 2025-01-10 15:27 | Outpatient (CLI) | payer MEDICARE, MEDICAID ==
[~2025-01-10] VITALS: Ht 160 cm; Wt 79.0 kg
[2025-01-10] MEDS ORDERED: ACETAMINOPHEN 650 MG PO ONE (16:00)
[2025-01-10] MEDS: ZOLEDRONIC ACID 5 MG in IV 1 EA IV ONE (16:04)
[2025-01-10 16:09] VITALS: BP 100/65; O2SAT 97
[2025-01-10] MEDS ORDERED: ACETAMINOPHEN 650 MG PO PRN (16:15)
[2025-01-10 16:40] VITALS: BP 104/58; O2SAT 94
== END 2025-01-10 16:40 | disposition home or self-care (01) ==
LOC: M INFU 15:27
DX: M81.8 Other osteoporosis without current pathological fracture (principal)
CPT/HCPCS: 96413; J3489

== ENCOUNTER → 2025-02-06 | Outpatient (REF) | payer MEDICARE, MEDICAID | LOC: M SFHCDERM 18:03 | PROVIDERS: ATTEND Physician Assistant | DX: C44.519 Basal cell carcinoma of skin of other part of trunk (principal) ==